=== PATIENT | female | born 1950 | race Caucasian/White ===

== ENCOUNTER 2016-07-04 08:58 | Emergency (ER) | payer MEDICARE ==
--- NOTE | 2016-07-04 09:29 | ED ---
Fall HPI - General Chief Complaint: Fall Stated Complaint: Fell/hip pain Time Seen by Provider: 07/04/16 09:17 Source: patient, RN notes reviewed Mode of arrival: ambulatory - History of Present Illness Initial Comments: Patient is a 66-year-old female presents to the emergency room for evaluation of fall injury. Patient states Sunday night she was walking out of a restaurant and tripped over a step and fell forward landing on both of her hands and knees. Patient states she began having left hand pain that has subsided since. Patient states over the past day she began having increasing right-sided low back pain. Patient states she's been taking leftover Tylenol 3 with little relief of symptoms. Patient denies numbness or tingling going down extremities. Patient denies saddle anesthesia. Patient denies urinary or fecal incontinence. Patient states the pain is worse when she sitting down. Patient states the pain is sharp and constant. Patient denies any other injuries during incident. Patient states she took 2 Tylenol #3 prior to arrival. - Related Data Home Medications Medication Instructions Recorded Confirmed Acetaminophen-Codeine 300-30mg 2 tab PO Q8H PRN 07/04/16 07/04/16 [Tylenol #3] Furosemide [Lasix] 20 mg PO DAILY 07/04/16 07/04/16 Lactulose 20 gm PO TID 07/04/16 07/04/16 Ondansetron [Zofran] 4 mg PO Q8HR PRN 07/04/16 07/04/16 Pramipexole Di-HCl [Mirapex] 0.25 mg PO HS 07/04/16 07/04/16 Propranolol [Inderal] 20 mg PO BID 07/04/16 07/04/16 Rifaximin [Xifaxan] 550 mg PO BID 07/04/16 07/04/16 Spironolactone 50 mg PO DAILY 07/04/16 07/04/16 Allergies Allergy/AdvReac Type Severity Reaction Status Date / Time No Known Allergies Allergy Verified 07/04/16 09:44 Review of Systems ROS Statement: Those systems with pertinent positive or pertinent negative responses have been documented in the HPI. ROS Other: All systems not noted in ROS Statement are negative. Past Medical History Additional Past Medical History / Comment(s): cirrhosis of liver History of Any Multi-Drug Resistant Organisms: None Reported Past Surgical History: Bowel Resection, Hernia Repair, Hysterectomy Additional Past Surgical History / Comment(s): x4 laproscopy's Past Psychological History: No Psychological Hx Reported Smoking Status: Never smoker Past Alcohol Use History: None Reported Past Drug Use History: None Reported General Exam - General Exam Comments Initial Comments: Sitting in exam chair, no acute distress. Limitations: no limitations General appearance: alert, in no apparent distress Head exam: Present: atraumatic, normocephalic, normal inspection Eye exam: Present: normal appearance ENT exam: Present: normal exam Neck exam: Present: normal inspection Respiratory exam: Present: normal lung sounds bilaterally. Absent: respiratory distress Cardiovascular Exam: Present: regular rate, normal rhythm, normal heart sounds Left Forearm Wrist exam: Present: tenderness over anatomical snuff box Hand Wrist exam: Present: normal inspection, full ROM, tenderness (Tenderness on palpating over the thenar eminence) Neuro motor exam: Present: wrist extension intact, thumb opposition intact, thumb IP flexion intact, thumb adduction intact, fingers 2-5 abduction intact Vascular: Present: normal capillary refill (Capillary refill less than 2 seconds ), radial pulse (2+), ulnar pulse (2+) Back exam: Present: normal inspection, tenderness (Tenderness on palpating the right sacroiliac area.) Neurological exam: Present: alert, oriented X3, CN II-XII intact Psychiatric exam: Present: normal affect, normal mood Skin exam: Present: warm, dry, intact, normal color. Absent: rash Course Vital Signs 07/04/16 09:08 Temperature 98.2 F Pulse Rate 61 Respiratory 18 Rate Blood Pressure 122/55 O2 Sat by Pulse 98 Oximetry Procedures - Orthopedic Splinting/Casting Injury #1 Side: left Upper Extremity Injury Location: hand Upper Extremity Immobilizer: thumb spica (Short arm OCL thumb spica splint placed. Neurovascular function is intact.) Medical Decision Making - Medical Decision Making Patient is a 66-year-old female presents to the emergency room for evaluation of fall injury. X-rays show no acute findings. Patient does have tenderness over the anatomical snuffbox on palpation. Suspected possible scaphoid fracture. Patient placed in a thumb spica splint and advised to follow-up with legal contracts specialist. Patient states she understands everything that was discussed with her. Return parameters discussed. Case discussed with Dr. Moraes. Disposition Clinical Impression: Fall, Injury of left hand, Suspected fracture of bone, Low back strain Disposition: HOME SELF-CARE Condition: Good Instructions: Fall Prevention for Older Adults (ED), Scaphoid Fracture (ED), Suspected Fracture (ED), Low Back Strain (ED) Additional Instructions: Ice on and off for 10-15 minutes for the next 24-48 hours. Do not get splint wet. Do not remove splint until follow-up with legal contracts specialist. Please follow-up with legal contracts specialist in 24-48 hours for further evaluation. Take Tylenol or Motrin as needed for pain. If new symptoms develop or symptoms worsen, please return to the ER. Referrals: Deidre Cartagena MD [Primary Care Provider] - 1-2 days Magdaleno Harper DO [Doctor of Osteopathic Medicine] - 1-2 days Time of Disposition: 10:50
--- NOTE | 2016-07-04 10:33 | XR ---
EXAMINATION TYPE: XR hand complete LT DATE OF EXAM ORDERED: 07/04/2016 10:24 AM HISTORY: Pain. COMPARISON: None. FINDINGS: There is evidence of a healed fracture of the distal fifth metacarpal. No acute fracture o r dislocation is seen. There is a tiny, well-defined ossific density lying adjacent to the third meta carpal head. This is thought to be a sesamoid bone as no donor site is visualized. IMPRESSION: 1. NO ACUTE OSSEOUS LESION. 2. EVIDENCE OF OLD TRAUMA.
--- NOTE | 2016-07-04 10:34 | XR ---
EXAMINATION TYPE: XR sacrum coccyx DATE OF EXAM ORDERED: 07/04/2016 10:24 AM HISTORY: Pain. COMPARISON: None. FINDINGS: There has been previous bowel surgery in the right lower quadrant. There are phleboliths w ithin the pelvis. No fracture or dislocation is seen. IMPRESSION: NO ACUTE OSSEOUS LESION.
--- NOTE | 2016-07-04 10:35 | XR ---
EXAM TYPE: LUMBAR SPINE X RAY SERIES COMPARISON: NONE HISTORY: Pain TECHNIQUE: 4 views are submitted. FINDINGS: Alignment is anatomic. The pedicles are intact. The transverse processes are intact. There is no s pondylolysis or spondylolisthesis. Multilevel moderate to severe degenerative disc disease with face t arthropathy. Hypertrophic changes noted anteriorly. No compression deformities. Postsurgical change s are seen in the adjacent soft tissues. IMPRESSION: 1. Multilevel degenerative disc disease.
[2016-07-04 11:04] VITALS: BP 156/67; PULSE 60; RESP 16; TEMP 97.4
== END 2016-07-04 11:08 | disposition home or self-care (01) ==
LOC: EC 08:58
DX: S39.012A Strain of muscle, fascia and tendon of lower back, initial encounter (principal); S69.92XA Unspecified injury of left wrist, hand and finger(s), initial encounter; K74.60 Unspecified cirrhosis of liver; Z79.899 Other long term (current) drug therapy; W01.0XXA Fall on same level from slipping, tripping and stumbling without subsequent striking against object, initial encounter; Y93.01 Activity, walking, marching and hiking; Y92.511 Restaurant or cafe as the place of occurrence of the external cause
CPT/HCPCS: 29125; 72110; 72220; 99284

== ENCOUNTER 2017-07-23 06:58 | Emergency (ER) | payer MEDICARE, BC ==
[2017-07-23 07:10] VITALS: BP 141/64; PULSE 67; RESP 18; TEMP 97.7
--- NOTE | 2017-07-23 07:26 | ED ---
General Adult HPI - General Chief complaint: Extremity Injury, Lower Stated complaint: fall,hip pain Time Seen by Provider: 07/23/17 07:12 Source: patient, RN notes reviewed, old records reviewed Mode of arrival: ambulatory Limitations: no limitations - History of Present Illness Initial comments: 67-year-old female presents with chief complaint of right hip pain. Patient's pain has been present for approximately one week. She did fall landing on this hip. Patient has had total hip replacement on the right approximately 8 months ago. This was performed at outside hospital. Denies any other injury. No sensory changes in the lower leg. No changes in her bowel or bladder habits. She has been ambulating with some pain. She's been taking Motrin with minimal relief. - Related Data Home Medications Medication Instructions Recorded Confirmed Acetaminophen-Codeine 300-30mg 2 tab PO Q8H PRN 07/04/16 07/04/16 [Tylenol #3] Furosemide [Lasix] 20 mg PO DAILY 07/04/16 07/04/16 Lactulose 20 gm PO TID 07/04/16 07/04/16 Ondansetron [Zofran] 4 mg PO Q8HR PRN 07/04/16 07/04/16 Pramipexole Di-HCl [Mirapex] 0.25 mg PO HS 07/04/16 07/04/16 Propranolol [Inderal] 20 mg PO BID 07/04/16 07/04/16 Rifaximin [Xifaxan] 550 mg PO BID 07/04/16 07/04/16 Spironolactone 50 mg PO DAILY 07/04/16 07/04/16 Previous Rx's Medication Instructions Recorded traMADol HCL [Ultram] 50 mg PO Q8HR PRN #24 tab 07/23/17 Allergies Allergy/AdvReac Type Severity Reaction Status Date / Time No Known Allergies Allergy Verified 07/23/17 07:10 Review of Systems ROS Statement: Those systems with pertinent positive or pertinent negative responses have been documented in the HPI. ROS Other: All systems not noted in ROS Statement are negative. Past Medical History Additional Past Medical History / Comment(s): cirrhosis of liver History of Any Multi-Drug Resistant Organisms: None Reported Past Surgical History: Bowel Resection, Hernia Repair, Hysterectomy, Joint Replacement, Orthopedic Surgery Additional Past Surgical History / Comment(s): x4 laproscopy's Past Psychological History: No Psychological Hx Reported Smoking Status: Never smoker Past Alcohol Use History: None Reported Past Drug Use History: None Reported General Exam Limitations: no limitations General appearance: alert, in no apparent distress Head exam: Present: atraumatic, normocephalic Eye exam: Present: normal appearance, PERRL, EOMI ENT exam: Present: normal exam, normal oropharynx Neck exam: Present: normal inspection. Absent: tenderness, meningismus Respiratory exam: Present: normal lung sounds bilaterally. Absent: respiratory distress, wheezes Cardiovascular Exam: Present: regular rate, normal rhythm GI/Abdominal exam: Present: soft. Absent: distended, tenderness Extremities exam: Present: normal inspection, normal capillary refill, other ( Distal pulses intact, range of motion at the hip does elicit small amount of pain, patient has normal internal and external rotation of the hip.). Absent: calf tenderness Neurological exam: Present: alert, oriented X3, CN II-XII intact. Absent: motor sensory deficit Psychiatric exam: Present: normal affect, normal mood Skin exam: Present: warm, dry, intact. Absent: cyanosis, diaphoretic Course Vital Signs 07/23/17 07:08 Temperature 97.7 F Pulse Rate 67 Respiratory 18 Rate Blood Pressure 141/64 O2 Sat by Pulse 98 Oximetry Medical Decision Making - Medical Decision Making 67-year-old female with right hip pain status post fall approximately one week ago. Patient has been ambulatory with some pain. Exam unremarkable. X-rays obtained, this was uncomplicated right hip total arthroplasty, no fracture identified. Patient's orthopedic surgeon is out of [facility] in [facility]. She is provided with a disc of the x-rays obtained today. She will be given tramadol for pain. Please follow up with orthopedic surgery. Disposition Clinical Impression: Contusion, hip Disposition: HOME SELF-CARE Condition: Good Instructions: Hip Pain (ED) Prescriptions: traMADol HCL [Ultram] 50 mg PO Q8HR PRN #24 tab PRN Reason: Pain Referrals: Deidre Cartagena MD [Primary Care Provider] - 1-2 days Yuri Lin MD [REFERRING] - 1-2 days Time of Disposition: 08:03
--- NOTE | 2017-07-23 07:37 | XR ---
EXAMINATION TYPE: XR Hip Complete RT DATE OF EXAM: 07/23/2017 COMPARISON: NONE HISTORY: 67-year-old female with pain, prior hip surgery in November TECHNIQUE: AP and frog-leg lateral views FINDINGS: Images show right total arthroplasty. Both acetabular cup and femoral short stemmed components of the prosthesis appear well seated without periprosthetic fracture identified. Alignment grossly anatomic . Some degenerative changes at the right SI joint. IMPRESSION: Uncomplicated right hip total arthroplasty.
== END 2017-07-23 08:12 | disposition home or self-care (01) ==
LOC: EC 06:58
DX: S70.01XA Contusion of right hip, initial encounter (principal); K74.60 Unspecified cirrhosis of liver; Z96.641 Presence of right artificial hip joint; Z79.899 Other long term (current) drug therapy; W19.XXXA Unspecified fall, initial encounter
CPT/HCPCS: 73502; 99284

== ENCOUNTER → 2017-09-14 | Outpatient (CLI) | payer MEDICARE, BC ==
[2017-09-14 11:37] LABS: INR 1.3 (<1.2); Partial Thromboplastin Time 25.8 sec (22.0-30.0); Prothrombin Time 12.7 sec (9.0-12.0)
[2017-09-14 11:39] LABS: AST 54 U/L (14-36); Alkaline Phosphatase 171 U/L (38-126); Anion Gap 10 mmol/L; Blood Urea Nitrogen 12 mg/dL (7-17); Calcium 8.7 mg/dL (8.4-10.2); Carbon Dioxide 23 mmol/L (22-30); Chloride 109 mmol/L (98-107); Cholesterol 130 mg/dL (<200); Glucose 93 mg/dL (74-99); HDL Cholesterol 87 mg/dL (40-60); LDL Cholesterol,Calculated 27 mg/dL (0-99); Potassium 4.4 mmol/L (3.5-5.1); Sodium 142 mmol/L (137-145); Total Bilirubin 3.1 mg/dL (0.2-1.3); Total Protein 5.9 g/dL (6.3-8.2); Triglycerides 79 mg/dL (<150)
[2017-09-14 11:40] LABS: ALT 48 U/L (9-52); Anisocytosis Moderate; HCT 32.4 % (34.0-46.0); Hypochromasia Marked; MCH 29.4 pg (25.0-35.0); MCHC 30.8 g/dL (31.0-37.0); MCV 95.6 fL (80.0-100.0); Macrocytosis Slight; Mean Platelet Volume 10.7; Platelet Count 98 k/uL (150-450); RBC 3.39 m/uL (3.80-5.40); RDW 20.4 % (11.5-15.5); WBC 3.4 k/uL (3.8-10.6)
--- NOTE | 2017-09-14 11:44 | XR ---
EXAMINATION TYPE: XR chest 2V DATE OF EXAM: 09/14/2017 COMPARISON: NONE HISTORY: Shortness of breath and difficulty breathing for one month. TECHNIQUE: Frontal and lateral views of the chest are obtained. FINDINGS: There is no focal air space opacity, pleural effusion, or pneumothorax seen. Minimal left basilar subsegmental atelectasis is seen peripherally. The cardiac silhouette size is within normal limits. The osseous structures are intact. Mild acromioclavicular arthropathy is noted. IMPRESSION: Minimal left basilar subsegmental atelectasis otherwise no acute cardiopulmonary process .
[2017-09-14 11:50] LABS: Eosinophils # (M) 0.17 k/uL (0-0.7); Lymphocytes # (M) 1.09 k/uL (1.0-4.8); Monocytes # (M) 0.48 k/uL (0-1.0); Neutrophils # (M) 1.67 k/uL (1.3-7.7); Neutrophils % (M) 49 %; Nucleated Red Blood Cells 0 /100 WBC (0-0); Total Cells Counted 100
[2017-09-14 18:42] LABS: Hemoglobin A1C 5.5 % (4.0-6.0)
== END | disposition home or self-care (01) ==
LOC: RADXRMAIN 10:41
PROVIDERS: ATTEND Nurse Practitioner
DX: R06.00 Dyspnea, unspecified (principal); Z00.00 Encounter for general adult medical examination without abnormal findings; K74.60 Unspecified cirrhosis of liver; R53.1 Weakness; Z87.19 Personal history of other diseases of the digestive system
CPT/HCPCS: 71046; 80053; 80061; 82140; 83036; 83880; 84443; 85025; 85610; 85730

== ENCOUNTER → 2017-10-09 | Outpatient (CLI) | payer MEDICARE, BC ==
--- NOTE | 2017-10-09 09:26 | US ---
EXAMINATION TYPE: US duplex aorta DATE OF EXAM: 10/09/2017 COMPARISON: NONE CLINICAL HISTORY: Z82.49 Family history of ischemic heart disease.... Pt states family history of AAA (brother)/ No complaints at this time EXAM MEASUREMENTS: Abdominal Aorta: Proximal: 1.6 x 1.4 cm Mid: 1.5 x 1.7 cm Distal: 1.6 x 1.7 cm Bifurcation: ELOISE: 1.2 x 1.0 cm MELISSA: 1.2 x 1.1 cm No evidence of AAA IMPRESSION: No sonographic evidence of abdominal aortic aneurysm in the visualized portions of the ao rta.
== END | disposition home or self-care (01) ==
LOC: RADUSWWP 08:54
PROVIDERS: ATTEND Family Medicine
DX: Z13.6 Encounter for screening for cardiovascular disorders (principal); Z82.49 Family history of ischemic heart disease and other diseases of the circulatory system
CPT/HCPCS: 93979

== ENCOUNTER → 2017-11-01 | Outpatient (CLI) | payer MEDICARE, BC ==
--- NOTE | 2017-11-09 07:55 | MM ---
Reason for exam: screening (asymptomatic). Last mammogram was performed 1 year and 8 months ago. History: Patient is postmenopausal and had first child at age 37. Physical Findings: A clinical breast exam by your physician is recommended on an annual basis and results should be correlated with mammographic findings. MG 3D Screening Mammo W/Cad Bilateral CC and MLO view(s) were taken. Prior study comparison: February 24, 2016, mammogram, performed at [facility]. February 05, 2014, mammogram, performed at [facility]. The breast tissue is heterogeneously dense. This may lower the sensitivity of mammography. No significant changes when compared with prior studies. ASSESSMENT: Benign, BI-RAD 2 RECOMMENDATION: Routine screening mammogram of both breasts in 1 year.
== END | disposition home or self-care (01) ==
LOC: RADMAMWWP 13:45
PROVIDERS: ATTEND Family Medicine
DX: Z12.31 Encounter for screening mammogram for malignant neoplasm of breast (principal)
CPT/HCPCS: 77063; 77067

== ENCOUNTER → 2017-11-01 | Outpatient (CLI) | payer MEDICARE, BC ==
--- NOTE | 2017-11-01 14:25 | MR ---
EXAMINATION TYPE: MR angio head wo con DATE OF EXAM: 11/01/2017 COMPARISON: NONE HISTORY: Family history of ischemic heart disease. TECHNIQUE: Time of flight images focusing on the [place] of [place] were performed without contrast. FINDINGS: There is no evidence of intracranial aneurysm, focal stenosis, dissection, or vascular occlusion. No evidence of vascular malformation is identified. The [place] of [place] appears intact although the pos terior communicating arteries are diminutive in size. The vertebral arteries are codominant. A scant amount of mucosal thickening is incidentally noted within the left ethmoid sinuses. There is also incidental note of a high riding left jugular bulb. IMPRESSION: No evidence of intracranial aneurysm, dissection, or vascular occlusion. No vascular malf ormation is seen.
== END | disposition home or self-care (01) ==
LOC: RADMRIMAIN 13:03
PROVIDERS: ATTEND Family Medicine
DX: Z13.6 Encounter for screening for cardiovascular disorders (principal); Z82.49 Family history of ischemic heart disease and other diseases of the circulatory system
CPT/HCPCS: 70544

== ENCOUNTER → 2018-01-22 | Outpatient (CLI) | payer MEDICARE, BC ==
[2018-01-22 18:00] LABS: ALT 41 U/L (9-52); AST 55 U/L (14-36); Alkaline Phosphatase 179 U/L (38-126); Anion Gap 3 mmol/L; Blood Urea Nitrogen 8 mg/dL (7-17); Calcium 9.1 mg/dL (8.4-10.2); Carbon Dioxide 27 mmol/L (22-30); Chloride 111 mmol/L (98-107); Glucose 112 mg/dL (74-99); Potassium 4.2 mmol/L (3.5-5.1); Sodium 141 mmol/L (137-145); Total Bilirubin 2.5 mg/dL (0.2-1.3); Total Protein 6.3 g/dL (6.3-8.2)
[2018-01-22 18:01] LABS: INR 1.4 (<1.2); Partial Thromboplastin Time 26.3 sec (22.0-30.0); Prothrombin Time 13.4 sec (9.0-12.0)
[2018-01-22 18:45] LABS: Anisocytosis Moderate; HCT 30.6 % (34.0-46.0); HGB 9.2 gm/dL (11.4-16.0); Hypochromasia Marked; MCH 28.4 pg (25.0-35.0); MCV 94.5 fL (80.0-100.0); Macrocytosis Slight; Mean Platelet Volume 11.2; RBC 3.24 m/uL (3.80-5.40); RDW 20.2 % (11.5-15.5); WBC 3.8 k/uL (3.8-10.6)
[2018-01-22 18:50] LABS: Platelet Count 73 k/uL (150-450)
[2018-01-22 19:55] LABS: Anisocytosis (M) Present; Band Neutrophils % 6 %; Eosinophils # (M) 0.15 k/uL (0-0.7); Monocytes # (M) 0.46 k/uL (0-1.0); Neutrophils % (M) 49 %; Nucleated Red Blood Cells 0 /100 WBC (0-0); Poikilocytosis (M) Present; Polychromasia Present; Total Cells Counted 100
[2018-01-22 19:56] LABS: Stomatocytes Present; Target Cells Present; Tear Drop Cells Present
== END | disposition home or self-care (01) ==
LOC: LABWHC1 16:53
PROVIDERS: ATTEND Internal Medicine
DX: K75.81 Nonalcoholic steatohepatitis (NASH) (principal); K74.60 Unspecified cirrhosis of liver; Z76.82 Awaiting organ transplant status
CPT/HCPCS: 36415; 80053; 82105; 85025; 85610; 85730

== ENCOUNTER → 2018-05-21 | Outpatient (CLI) | payer MEDICARE, BC ==
--- NOTE | 2018-05-21 13:44 | XR ---
EXAMINATION TYPE: XR chest 2V DATE OF EXAM: 05/21/2018 COMPARISON: 09/14/2017 HISTORY: 68 year-old female shortness of breath TECHNIQUE: Frontal and lateral views FINDINGS: Heart upper limits of normal in size. Biapical pleural parenchymal scarring. Mild interstitial promin ence. No consolidation or pleural effusion seen. IMPRESSION: Chronic-appearing changes. Heart upper limits of normal in size. Biapical pleural-parenchymal scarrin g. No acute process seen.
--- NOTE | 2018-05-21 17:31 | ECHOF ---
Referral Reason:R06.02, R91.8 MEASUREMENTS -------- HEIGHT: 167.6 cm WEIGHT: 90.7 kg BP: RVIDd: 3.3 cm (< 3.3) IVSd: 1.3 cm (0.6 - 1.1) LVIDd: 5.0 cm (3.9 - 5.3) LVPWd: 1.2 cm (0.6 - 1.1) IVSs: 1.3 cm LVIDs: 3.6 cm LVPWs: 1.3 cm LAESV Index (A-L): 23.59 ml/m Ao Diam: 2.6 cm (2.0 - 3.7) AV Cusp: 1.7 cm (1.5 - 2.6) LA Diam: 3.5 cm (2.7 - 3.8) MV EXCURSION: 19.436 mm (> 18.000) MV EF SLOPE: 98 mm/s (70 - 150) EPSS: 0.4 cm MV E Lex: 1.26 m/s MV DecT: 334 ms MV A Lex: 1.02 m/s MV E/A Ratio: 1.23 RAP: 5.00 mmHg RVSP: 39.83 mmHg FINDINGS -------- Resting bradycardia (HR<60bpm). This was a technically adequate study. The left ventricular size is normal. There is mild concentric left ventricular hypertrophy. Overa ll left ventricular systolic function is normal with, an EF between 55 - 60 %. The right ventricle is normal in size and function. Normal LA size by volume 22+/-6 ml/m2. The right atrium was not well visualized. Aortic valve is trileaflet and is mildly thickened. There is no evidence of aortic regurgitation. There is no evidence of aortic stenosis. Local thickening noted on the non-coronary cusp. Mild mitral annular calcification present. There is trace to mild mitral regurgitation. Trace tricuspid regurgitation present. Right ventricular systolic pressure is normal at < 35 mmHg. There is no evidence of pulmonary hypertension. The pulmonic valve was not well visualized. The aortic root size is normal. Normal inferior vena cava with normal inspiratory collapse consistent with estimated right atrial pre ssure of 5 mmHg. There is no pericardial effusion. CONCLUSIONS -------- 1. Resting bradycardia (HR<60bpm). 2. This was a technically adequate study. 3. The left ventricular size is normal. 4. There is mild concentric left ventricular hypertrophy. 5. Overall left ventricular systolic function is normal with, an EF between 55 - 60 %. 6. Normal LA size by volume 22+/-6 ml/m2. 7. The right atrium was not well visualized. 8. Aortic valve is trileaflet and is mildly thickened. 9. Local thickening noted on the non-coronary cusp. 10. Mild mitral annular calcification present. 11. There is trace to mild mitral regurgitation. 12. Trace tricuspid regurgitation present. 13. Right ventricular systolic pressure is normal at < 35 mmHg. 14. There is no evidence of pulmonary hypertension. 15. The pulmonic valve was not well visualized. 16. The aortic root size is normal. 17. There is no pericardial effusion. MACHINE FOLDER: Vaughn Su RDCS
== END | disposition home or self-care (01) ==
LOC: RADECHMAIN 12:09
PROVIDERS: ATTEND Internal Medicine
DX: I34.0 Nonrheumatic mitral (valve) insufficiency (principal); R00.1 Bradycardia, unspecified; I51.7 Cardiomegaly; I35.8 Other nonrheumatic aortic valve disorders; J98.4 Other disorders of lung
CPT/HCPCS: 71046; 93306

== ENCOUNTER → 2018-05-21 | Outpatient (CLI) | payer MEDICARE, BC | END | disposition home or self-care (01) | LOC: LABWHC1 11:17 | PROVIDERS: ATTEND Internal Medicine | DX: Z53.9 Procedure and treatment not carried out, unspecified reason (principal) ==

== ENCOUNTER 2018-08-27 02:31 | Emergency (ER) | payer MEDICARE, BC ==
--- NOTE | 2018-08-27 02:47 | ED ---
SOB HPI - General Chief Complaint: Shortness of Breath Stated Complaint: ARTEM Time Seen by Provider: 08/27/18 02:41 Source: patient Mode of arrival: ambulatory Limitations: no limitations - History of Present Illness Initial Comments: Patient is a 68-year-old female with past medical history significant for liver disease for which she is currently being followed by [facility] for possible transplant. Patient presents the emergency Department today with complaint of the vertigo and shortness of breath. Patient reports she's had a nonproductive cough and wheezing throughout the night tonight. She reports that while driving to the hospital she became nauseated had to mold puller and had one episode of nonbloody nonbilious emesis. She denies any chest pain or palpitations. She denies any abdominal pain or diarrhea. She denies any known sick contacts. - Related Data Home Medications Medication Instructions Recorded Confirmed Furosemide [Lasix] 20 mg PO DAILY 07/04/16 08/27/18 Lactulose 20 gm PO TID 07/04/16 08/27/18 Ondansetron [Zofran] 4 mg PO Q8HR PRN 07/04/16 08/27/18 Propranolol [Inderal] 20 mg PO BID 07/04/16 08/27/18 Rifaximin [Xifaxan] 550 mg PO BID 07/04/16 08/27/18 Oxybutynin Chloride 5 mg PO DAILY 08/27/18 08/27/18 Allergies Allergy/AdvReac Type Severity Reaction Status Date / Time No Known Allergies Allergy Verified 08/27/18 15:23 Review of Systems ROS Statement: Those systems with pertinent positive or pertinent negative responses have been documented in the HPI. ROS Other: All systems not noted in ROS Statement are negative. Past Medical History Additional Past Medical History / Comment(s): cirrhosis of liver History of Any Multi-Drug Resistant Organisms: None Reported Past Surgical History: Bowel Resection, Hernia Repair, Hysterectomy, Joint Replacement, Orthopedic Surgery Additional Past Surgical History / Comment(s): x4 laproscopy's Past Psychological History: No Psychological Hx Reported Smoking Status: Never smoker Past Alcohol Use History: None Reported Past Drug Use History: None Reported General Exam - General Exam Comments Initial Comments: Physical Exam GENERAL: Patient is well-developed and well-nourished. Febrile HENT: Normocephalic, Atraumatic. EYES: PERRL, EOMI PULMONARY: Tachypneic, wheezing in all lung poole CARDIOVASCULAR: There is a regular rate and rhythm without any murmurs gallops or rubs. ABDOMEN: Soft and nontender with normal bowel sounds. SKIN: Skin is warm, clammy : Deferred NEUROLOGIC: Patient is alert and oriented x3. Moving all extremities spontaneously MUSCULOSKELETAL: Normal extremities with adequate strength and full range of motion. No lower extremity swelling or edema. No calf tenderness. PSYCHIATRIC: Normal psychiatric evaluation Limitations: no limitations Course Vital Signs 08/27/18 08/27/18 08/27/18 02:35 02:46 02:50 Temperature 99.5 F Pulse Rate 90 87 Respiratory 24 20 Rate Blood Pressure 138/61 163/50 O2 Sat by Pulse 98 97 98 Oximetry 08/27/18 08/27/18 08/27/18 02:57 03:00 03:10 Temperature 102.2 F H Pulse Rate 87 Respiratory 24 20 Rate Blood Pressure 157/56 150/62 O2 Sat by Pulse Oximetry 08/27/18 08/27/18 08/27/18 03:20 03:30 03:40 Temperature Pulse Rate 87 88 99 Respiratory 13 20 22 Rate Blood Pressure 153/61 153/61 148/56 O2 Sat by Pulse 98 98 Oximetry 08/27/18 08/27/18 08/27/18 03:50 04:00 04:10 Temperature Pulse Rate 90 90 88 Respiratory 26 H 13 24 Rate Blood Pressure 128/50 128/50 139/45 O2 Sat by Pulse 97 98 98 Oximetry 08/27/18 08/27/18 08/27/18 04:20 04:30 04:50 Temperature Pulse Rate 89 94 Respiratory 25 H 24 Rate Blood Pressure 124/48 124/48 140/57 O2 Sat by Pulse 97 98 Oximetry 08/27/18 08/27/18 08/27/18 05:00 05:03 05:14 Temperature 99.7 F H Pulse Rate 95 93 89 Respiratory 20 Rate Blood Pressure 140/57 O2 Sat by Pulse 98 Oximetry Medical Decision Making - Medical Decision Making The patient was seen and evaluated, history is obtained from the patient History and physical exam are concerning for a viral upper respiratory infection, labs were obtained, patient was given a breathing treatment as well as antipyretics and fluids Labs of multiple abnormalities however appear to be at baseline for the patient with chronic anemia chronic liver disease D-dimer was elevated and CTA was obtained which revealed no acute pulmonary embolism however there is a atypical mass in the left lung, patient reports that she has a fever from living in [place] and that she was aware of this mass in her lung. Patient was reevaluated after fluids antipyretic she is now afebrile, she is not tachycardic oxygen saturation saturations are in the high 90s patient reports she is feeling much better she's hungry she would like to eat and be discharged home. Patient tolerated by mouth intake she remained afebrile and was discharged home in stable condition. All questions pertaining care were answered return parameters were discussed the patient was discharged home. - Lab Data Result diagrams: 08/27/18 03:04 08/27/18 03:04 Lab Results 08/27/18 08/27/18 08/27/18 Range/Units 03:04 03:04 03:04 WBC 12.9 H (3.8-10.6) k/uL RBC 2.92 L (3.80-5.40) m/uL Hgb 8.4 L (11.4-16.0) gm/dL Hct 27.8 L (34.0-46.0) % MCV 95.3 (80.0-100.0) fL MCH 28.9 (25.0-35.0) pg MCHC 30.3 L (31.0-37.0) g/dL RDW 21.1 H (11.5-15.5) % Plt Count 70 L (150-450) k/uL Neutrophils % Not Reportable Neutrophils % (Manual) 36 % Band Neutrophils % 48 % Lymphocytes % Not Reportable Lymphocytes % (Manual) 12 % Monocytes % Not Reportable Monocytes % (Manual) 3 % Eosinophils % Not Reportable Eosinophils % (Manual) 1 % Basophils % Not Reportable Metamyelocytes % 1 % Neutrophils # Not Reportable Neutrophils # (Manual) 10.80 H (1.3-7.7) k/uL Lymphocytes # Not Reportable Lymphocytes # (Manual) 1.55 (1.0-4.8) k/uL Monocytes # Not Reportable Monocytes # (Manual) 0.39 (0-1.0) k/uL Eosinophils # Not Reportable Eosinophils # (Manual) 0.13 (0-0.7) k/uL Basophils # Not Reportable Metamyelocytes # (Man) 0.13 H (0) k/uL Nucleated RBCs 0 (0-0) /100 WBC Manual Slide Review Performed Polychromasia Present Hypochromasia Marked Poikilocytosis Slight Anisocytosis Moderate Macrocytosis Slight Target Cells Present PT 13.3 H (9.0-12.0) sec INR 1.3 H (<1.2) APTT 24.9 (22.0-30.0) sec D-Dimer 1.49 H (<0.60) mg/L FEU Sodium 140 (137-145) mmol/L Potassium 4.2 (3.5-5.1) mmol/L Chloride 111 H (98-107) mmol/L Carbon Dioxide 25 (22-30) mmol/L Anion Gap 4 mmol/L BUN 13 (7-17) mg/dL Creatinine 0.70 (0.52-1.04) mg/dL Est GFR (CKD-EPI)AfAm >90 (>60 ml/min/1.73 sqM) Est GFR (CKD-EPI)NonAf >90 (>60 ml/min/1.73 sqM) Glucose 72 L (74-99) mg/dL Plasma Lactic Acid Sin (0.7-2.0) mmol/L Calcium 8.8 (8.4-10.2) mg/dL Magnesium 1.4 L (1.6-2.3) mg/dL Total Bilirubin 2.5 H (0.2-1.3) mg/dL AST 66 H (14-36) U/L ALT 35 (9-52) U/L Alkaline Phosphatase 294 H (38-126) U/L Troponin I (0.000-0.034) ng/mL NT-Pro-B Natriuret Pep pg/mL Total Protein 6.0 L (6.3-8.2) g/dL Albumin 2.8 L (3.5-5.0) g/dL Urine Color Urine Appearance (Clear) Urine pH (5.0-8.0) Ur Specific [place] (1.001-1.035) Urine Protein (Negative) Urine Glucose (UA) (Negative) Urine Ketones (Negative) Urine Blood (Negative) Urine Nitrite (Negative) Urine Bilirubin (Negative) Urine Urobilinogen (<2.0) mg/dL Ur Leukocyte Esterase (Negative) Urine RBC (0-5) /hpf Urine WBC (0-5) /hpf Urine WBC Clumps (None) /hpf Ur Squamous Epith Cells (0-4) /hpf Urine Bacteria (None) /hpf Hyaline Casts (0-2) /lpf Urine Mucus (None) /hpf Influenza Type A RNA (Not Detectd) Influenza Type B (PCR) (Not Detectd) 08/27/18 08/27/18 08/27/18 Range/Units 03:04 03:04 03:04 WBC (3.8-10.6) k/uL RBC (3.80-5.40) m/uL Hgb (11.4-16.0) gm/dL Hct (34.0-46.0) % MCV (80.0-100.0) fL MCH (25.0-35.0) pg MCHC (31.0-37.0) g/dL RDW (11.5-15.5) % Plt Count (150-450) k/uL Neutrophils % Neutrophils % (Manual) % Band Neutrophils % % Lymphocytes % Lymphocytes % (Manual) % Monocytes % Monocytes % (Manual) % Eosinophils % Eosinophils % (Manual) % Basophils % Metamyelocytes % % Neutrophils # Neutrophils # (Manual) (1.3-7.7) k/uL Lymphocytes # Lymphocytes # (Manual) (1.0-4.8) k/uL Monocytes # Monocytes # (Manual) (0-1.0) k/uL Eosinophils # Eosinophils # (Manual) (0-0.7) k/uL Basophils # Metamyelocytes # (Man) (0) k/uL Nucleated RBCs (0-0) /100 WBC Manual Slide Review Polychromasia Hypochromasia Poikilocytosis Anisocytosis Macrocytosis Target Cells PT (9.0-12.0) sec INR (<1.2) APTT (22.0-30.0) sec D-Dimer (<0.60) mg/L FEU Sodium (137-145) mmol/L Potassium (3.5-5.1) mmol/L Chloride (98-107) mmol/L Carbon Dioxide (22-30) mmol/L Anion Gap mmol/L BUN (7-17) mg/dL Creatinine (0.52-1.04) mg/dL Est GFR (CKD-EPI)AfAm (>60 ml/min/1.73 sqM) Est GFR (CKD-EPI)NonAf (>60 ml/min/1.73 sqM) Glucose (74-99) mg/dL Plasma Lactic Acid Sin (0.7-2.0) mmol/L Calcium (8.4-10.2) mg/dL Magnesium (1.6-2.3) mg/dL Total Bilirubin (0.2-1.3) mg/dL AST (14-36) U/L ALT (9-52) U/L Alkaline Phosphatase (38-126) U/L Troponin I <0.012 (0.000-0.034) ng/mL NT-Pro-B Natriuret Pep 307 pg/mL Total Protein (6.3-8.2) g/dL Albumin (3.5-5.0) g/dL Urine Color Urine Appearance (Clear) Urine pH (5.0-8.0) Ur Specific [place] (1.001-1.035) Urine Protein (Negative) Urine Glucose (UA) (Negative) Urine Ketones (Negative) Urine Blood (Negative) Urine Nitrite (Negative) Urine Bilirubin (Negative) Urine Urobilinogen (<2.0) mg/dL Ur Leukocyte Esterase (Negative) Urine RBC (0-5) /hpf Urine WBC (0-5) /hpf Urine WBC Clumps (None) /hpf Ur Squamous Epith Cells (0-4) /hpf Urine Bacteria (None) /hpf Hyaline Casts (0-2) /lpf Urine Mucus (None) /hpf Influenza Type A RNA Not Detected (Not Detectd) Influenza Type B (PCR) Not Detected (Not Detectd) 08/27/18 08/27/18 Range/Units 03:04 03:42 WBC (3.8-10.6) k/uL RBC (3.80-5.40) m/uL Hgb (11.4-16.0) gm/dL Hct (34.0-46.0) % MCV (80.0-100.0) fL MCH (25.0-35.0) pg MCHC (31.0-37.0) g/dL RDW (11.5-15.5) % Plt Count (150-450) k/uL Neutrophils % Neutrophils % (Manual) % Band Neutrophils % % Lymphocytes % Lymphocytes % (Manual) % Monocytes % Monocytes % (Manual) % Eosinophils % Eosinophils % (Manual) % Basophils % Metamyelocytes % % Neutrophils # Neutrophils # (Manual) (1.3-7.7) k/uL Lymphocytes # Lymphocytes # (Manual) (1.0-4.8) k/uL Monocytes # Monocytes # (Manual) (0-1.0) k/uL Eosinophils # Eosinophils # (Manual) (0-0.7) k/uL Basophils # Metamyelocytes # (Man) (0) k/uL Nucleated RBCs (0-0) /100 WBC Manual Slide Review Polychromasia Hypochromasia Poikilocytosis Anisocytosis Macrocytosis Target Cells PT (9.0-12.0) sec INR (<1.2) APTT (22.0-30.0) sec D-Dimer (<0.60) mg/L FEU Sodium (137-145) mmol/L Potassium (3.5-5.1) mmol/L Chloride (98-107) mmol/L Carbon Dioxide (22-30) mmol/L Anion Gap mmol/L BUN (7-17) mg/dL Creatinine (0.52-1.04) mg/dL Est GFR (CKD-EPI)AfAm (>60 ml/min/1.73 sqM) Est GFR (CKD-EPI)NonAf (>60 ml/min/1.73 sqM) Glucose (74-99) mg/dL Plasma Lactic Acid Sin 1.4 (0.7-2.0) mmol/L Calcium (8.4-10.2) mg/dL Magnesium (1.6-2.3) mg/dL Total Bilirubin (0.2-1.3) mg/dL AST (14-36) U/L ALT (9-52) U/L Alkaline Phosphatase (38-126) U/L Troponin I (0.000-0.034) ng/mL NT-Pro-B Natriuret Pep pg/mL Total Protein (6.3-8.2) g/dL Albumin (3.5-5.0) g/dL Urine Color Yellow Urine Appearance Cloudy H (Clear) Urine pH 5.5 (5.0-8.0) Ur Specific [place] 1.030 (1.001-1.035) Urine Protein 1+ H (Negative) Urine Glucose (UA) Negative (Negative) Urine Ketones Trace H (Negative) Urine Blood Moderate H (Negative) Urine Nitrite Negative (Negative) Urine Bilirubin Negative (Negative) Urine Urobilinogen <2.0 (<2.0) mg/dL Ur Leukocyte Esterase Moderate H (Negative) Urine RBC 8 H (0-5) /hpf Urine WBC 32 H (0-5) /hpf Urine WBC Clumps Rare H (None) /hpf Ur Squamous Epith Cells 14 H (0-4) /hpf Urine Bacteria Many H (None) /hpf Hyaline Casts 4 H (0-2) /lpf Urine Mucus Few H (None) /hpf Influenza Type A RNA (Not Detectd) Influenza Type B (PCR) (Not Detectd) - EKG Data -: EKG Interpreted by Me EKG Comments: EKG was ordered EKG obtained at 2:56 AM, rate is 88 rhythm is sinus is normal axis normal intervals, TX 158, QRS 88, QTC 4:30 there is no acute ST elevations or depressions no evidence of acute ischemia or infarction. Disposition Clinical Impression: URI (upper respiratory infection), Lung mass Disposition: HOME SELF-CARE Condition: Stable Instructions (If sedation given, give patient instructions): Acute Bronchitis (ED) Is patient prescribed a controlled substance at d/c from ED?: No Referrals: None,Stated [Primary Care Provider] - 1-2 days
[2018-08-27] MEDS ORDERED: ACETAMINOPHEN TAB 500 MG TAB PO STA (02:56)
[2018-08-27 03:23] LABS: Anisocytosis Moderate; HCT 27.8 % (34.0-46.0); HGB 8.4 gm/dL (11.4-16.0); Hypochromasia Marked; MCH 28.9 pg (25.0-35.0); MCHC 30.3 g/dL (31.0-37.0); MCV 95.3 fL (80.0-100.0); Macrocytosis Slight; Mean Platelet Volume 10.4; Poikilocytosis Slight; RBC 2.92 m/uL (3.80-5.40); RDW 21.1 % (11.5-15.5); WBC 12.9 k/uL (3.8-10.6)
[2018-08-27 03:35] LABS: ALT 35 U/L (9-52); AST 66 U/L (14-36); Albumin 2.8 g/dL (3.5-5.0); Alkaline Phosphatase 294 U/L (38-126); Anion Gap 4 mmol/L; Blood Urea Nitrogen 13 mg/dL (7-17); Calcium 8.8 mg/dL (8.4-10.2); Carbon Dioxide 25 mmol/L (22-30); Chloride 111 mmol/L (98-107); Glucose 72 mg/dL (74-99); Magnesium 1.4 mg/dL (1.6-2.3); Potassium 4.2 mmol/L (3.5-5.1); Sodium 140 mmol/L (137-145); Total Bilirubin 2.5 mg/dL (0.2-1.3)
[2018-08-27 03:53] LABS: Platelet Count 70 k/uL (150-450)
[2018-08-27 03:54] LABS: Polychromasia Present; Target Cells Present
--- NOTE | 2018-08-27 03:56 | XR ---
EXAM: XR Chest, 2 Views CLINICAL HISTORY: ITS.REASON XR Reason: difficulty breathing TECHNIQUE: Frontal and lateral views of the chest. COMPARISON: Chest x-ray dated 05/21/2018. FINDINGS: Lungs: Unremarkable. The lungs are clear. Pleural space: Unremarkable. No pneumothorax. Heart: Mild cardiomegaly. Mediastinum: Unremarkable. Bones/joints: Unremarkable. IMPRESSION: No acute findings.
[2018-08-27 03:59] LABS: INR 1.3 (<1.2); Partial Thromboplastin Time 24.9 sec (22.0-30.0); Prothrombin Time 13.3 sec (9.0-12.0)
[2018-08-27 04:06] LABS: Band Neutrophils % 48 %; Eosinophils # (M) 0.13 k/uL (0-0.7); Lymphocytes # (M) 1.55 k/uL (1.0-4.8); Metamyelocytes # (M) 0.13 k/uL (0); Metamyelocytes % 1 %; Monocytes # (M) 0.39 k/uL (0-1.0); Neutrophils % (M) 36 %; Nucleated Red Blood Cells 0 /100 WBC (0-0); Total Cells Counted 200
[2018-08-27 04:13] LABS: D-Dimer 1.49 mg/L FEU (<0.60)
[2018-08-27 04:27] LABS: Appearance,Urine Cloudy (Clear); Bacteria,Urine Many /hpf; Bilirubin,Urine Negative (Negative); Blood,Urine Moderate (Negative); Color,Urine Yellow; Glucose,Urine (UA) Negative (Negative); Hyaline Casts,Urine 4 /lpf (0-2); Ketones,Urine Trace (Negative); Leukocyte Esterase,Urine Moderate (Negative); Mucus,Urine Few /hpf; Nitrite,Urine Negative (Negative); PH, Urine 5.5 (5.0-8.0); Protein,Urine 1+ (Negative); RBC,Urine 8 /hpf (0-5); Squamous Epithelial Cell,Urine 14 /hpf (0-4); Urobilinogen,Urine <2.0 mg/dL (<2.0)
[2018-08-27] MEDS ORDERED: MAGNESIUM SULFATE-D5W PMX 1 GM in DEXTROSE/WATER 1 100ML.BAG IVPB ONE (04:40)
[2018-08-27] MEDS ORDERED: IPRATROPIUM-ALBUTEROL 3 ML NEB INHALATION STA (04:53)
[2018-08-27 05:05] VITALS: BP 140/57; RESP 20; TEMP 99.7
[2018-08-27 05:14] VITALS: PULSE 89
--- NOTE | 2018-08-27 06:02 | CT ---
EXAM: CT Angiography Chest With Intravenous Contrast CLINICAL HISTORY: ITS.REASON CT Reason: Pain TECHNIQUE: Axial computed tomographic angiography images of the chest with intravenous contrast using pulmonary embolism protocol. CTDI is 10.4 mGy and DLP is 441.8 mGy-cm. This CT exam was performed using one or more of the following dose reduction techniques: automated exposure control, adjustment of the mA and/or kV according to patient size, and/or use of iterative reconstruction technique. MIP reconstructed images were created and reviewed. COMPARISON: No relevant prior studies available. FINDINGS: Pulmonary arteries: Exam is limited by poor contrast bolus/timing as well as mild patient motion. There is no evidence of pulmonary embolism to the proximal segmental level. More distal evaluation is not possible. Aorta: No acute findings. No thoracic aortic aneurysm. Lungs: Large masslike focus of consolidation in the left lower lobe measuring up to 5.5 cm. Pleural space: Unremarkable. No significant effusion. No pneumothorax. Heart: Unremarkable. No cardiomegaly. No significant pericardial effusion. No evidence of RV dysfunction. Mediastinum: Small hiatal hernia. Bones/joints: No acute fracture. No dislocation. Soft tissues: Unremarkable. Lymph nodes: Unremarkable. No enlarged lymph nodes. Liver: Cirrhotic appearing liver. Gallbladder and bile ducts: Mildly distended gallbladder, nonspecific finding. IMPRESSION: 1. Exam is limited by poor contrast bolus/timing as well as mild patient motion. There is no evidence of pulmonary embolism to the proximal segmental level. More distal evaluation is not possible. 2. Large masslike focus of consolidation in the left lower lobe measuring up to 5.5 cm. For low-risk or high-risk patients consider a follow-up chest CT at 3 months. If unchanged consider an additional follow-up CT at 18-24 months. Alternatively (or additionally) PET/CT or tissue sampling could be performed.
== END 2018-08-27 06:56 | disposition home or self-care (01) ==
LOC: EC 02:31
DX: J06.9 Acute upper respiratory infection, unspecified (principal); R91.8 Other nonspecific abnormal finding of lung field; R79.89 Other specified abnormal findings of blood chemistry; Z79.899 Other long term (current) drug therapy
CPT/HCPCS: 36415; 94640; 93005; 85379; 83880; 80053; 83605; 83735; 84484; 85025; 85610; 85730; 81001; 87040; 87086; 87502; 71046; 71275; 99285; 96365; J3475; Q9967

== ENCOUNTER 2018-08-27 13:38 | Inpatient (IN) | payer MEDICARE, BC ==
[2018-08-27] MEDS ORDERED: IPRATROPIUM-ALBUTEROL 3 ML NEB INHALATION STA (15:03)
[2018-08-27] MEDS ORDERED: SODIUM CHLORIDE 0.9% 500 ML 500 ML IV STA (15:03)
[2018-08-27] MEDS ORDERED: SODIUM CHLORIDE 0.9% 1,000 ML IV STA (15:03)
[2018-08-27] MEDS ORDERED: methylPREDNISolone SOD SUCCI 125 MG/2 ML VIAL IV STA (15:10)
--- NOTE | 2018-08-27 15:13 | ED ---
General Adult HPI - General Chief complaint: Upper Respiratory Infection Stated complaint: SOB Time Seen by Provider: 08/27/18 15:03 Source: patient, family, RN notes reviewed Mode of arrival: ambulatory Limitations: no limitations - History of Present Illness Initial comments: Patient is a pleasant 68-year-old female presenting to the emergency Department with complaints of difficulty in breathing. Onset of symptoms was around 2 AM. Patient does have dry cough. Nonproductive. Patient did have a fever earlier. Patient did take Motrin an hour or 2 ago. No chest pain. Patient does have history of scarring in her lungs. Patient states she was in the emergency department this morning and had chest x-ray and computed tomography scan done. Patient states she took a nebulizer treatment this morning without much improvement. Patient states this was left over from an old diagnosis of bronchitis. Patient has been a nonsmoker of her life. No history of asthma or COPD. - Related Data Home Medications Medication Instructions Recorded Confirmed Furosemide [Lasix] 20 mg PO DAILY 07/04/16 08/27/18 Lactulose 20 gm PO TID 07/04/16 08/27/18 Ondansetron [Zofran] 4 mg PO Q8HR PRN 07/04/16 08/27/18 Propranolol [Inderal] 20 mg PO BID 07/04/16 08/27/18 Rifaximin [Xifaxan] 550 mg PO BID 07/04/16 08/27/18 Oxybutynin Chloride 5 mg PO DAILY 08/27/18 08/27/18 Allergies Allergy/AdvReac Type Severity Reaction Status Date / Time No Known Allergies Allergy Verified 08/27/18 15:23 Review of Systems ROS Statement: Those systems with pertinent positive or pertinent negative responses have been documented in the HPI. ROS Other: All systems not noted in ROS Statement are negative. Constitutional: Reports: fever Eyes: Denies: eye pain ENT: Denies: ear pain Respiratory: Reports: cough, dyspnea Cardiovascular: Denies: chest pain Endocrine: Reports: fatigue Gastrointestinal: Denies: abdominal pain Genitourinary: Denies: dysuria Musculoskeletal: Denies: back pain Skin: Denies: rash Neurological: Denies: weakness Past Medical History Additional Past Medical History / Comment(s): cirrhosis of liver History of Any Multi-Drug Resistant Organisms: None Reported Past Surgical History: Bowel Resection, Hernia Repair, Hysterectomy, Joint Replacement, Orthopedic Surgery Additional Past Surgical History / Comment(s): x4 laproscopy's Past Psychological History: No Psychological Hx Reported Smoking Status: Never smoker Past Alcohol Use History: None Reported Past Drug Use History: None Reported General Exam Limitations: no limitations General appearance: alert, in no apparent distress Head exam: Present: atraumatic Eye exam: Present: normal appearance Neck exam: Present: normal inspection Respiratory exam: Present: respiratory distress (Mild respiratory distress), wheezes Cardiovascular Exam: Present: regular rate, normal rhythm GI/Abdominal exam: Present: soft. Absent: tenderness Extremities exam: Present: normal inspection. Absent: pedal edema, calf tenderness Back exam: Present: normal inspection Neurological exam: Present: alert Psychiatric exam: Present: normal affect, normal mood Skin exam: Present: normal color Course Vital Signs 08/27/18 08/27/18 08/27/18 13:57 16:12 16:24 Temperature 98.2 F Pulse Rate 89 72 76 Respiratory 22 Rate Blood Pressure 123/54 O2 Sat by Pulse 96 Oximetry - Reevaluation(s) Reevaluation #1: 08/27/18 17:01 Patient does meet sepsis criteria with concern for pneumonia on x-ray at 1701. Culture and lactic acid have been ordered. IV antibiotics will be ordered. EKG Findings - EKG Comments: EKG Findings:: Normal sinus rhythm 77. CT 160. QRS 84. QT 404. QTC 457. Normal axis. Normal QRS. No acute ST change. Medical Decision Making - Medical Decision Making Patient reevaluated and slightly improved. Patient and family updated on results and plan. Patient states her hemoglobin and platelet levels are actually fairly normal for her and she is not overly worried about them. Patient states she is address this many times with her primary care physician however has not seen a appeals court associate justice for this. Dr. álvarez has been paged for admission. Consult will be placed for hematology as well as pulmonary. Patient will be covered with antibiotics for concern for pneumonia. - Lab Data Result diagrams: 08/27/18 16:01 08/27/18 16: Lab Results 08/27/18 08/27/18 08/27/18 Range/Units 16:01 16:01 16:01 WBC 12.5 H (3.8-10.6) k/uL RBC 2.67 L (3.80-5.40) m/uL Hgb 7.8 L (11.4-16.0) gm/dL Hct 25.8 L (34.0-46.0) % MCV 96.7 (80.0-100.0) fL MCH 29.2 (25.0-35.0) pg MCHC 30.2 L (31.0-37.0) g/dL RDW 21.3 H (11.5-15.5) % Plt Count 65 L (150-450) k/uL Neutrophils % 87 % Lymphocytes % 9 % Monocytes % 2 % Eosinophils % 1 % Basophils % 0 % Neutrophils # 10.9 H (1.3-7.7) k/uL Lymphocytes # 1.1 (1.0-4.8) k/uL Monocytes # 0.2 (0-1.0) k/uL Eosinophils # 0.1 (0-0.7) k/uL Basophils # 0.0 (0-0.2) k/uL Hypochromasia Marked Poikilocytosis Slight Anisocytosis Moderate Macrocytosis Slight PT (9.0-12.0) sec INR (<1.2) APTT (22.0-30.0) sec Sodium 139 (137-145) mmol/L Potassium 4.5 (3.5-5.1) mmol/L Chloride 111 H (98-107) mmol/L Carbon Dioxide 23 (22-30) mmol/L Anion Gap 5 mmol/L BUN 22 H (7-17) mg/dL Creatinine 1.15 H (0.52-1.04) mg/dL Est GFR (CKD-EPI)AfAm 57 (>60 ml/min/1.73 sqM) Est GFR (CKD-EPI)NonAf 50 (>60 ml/min/1.73 sqM) Glucose 146 H (74-99) mg/dL Calcium 8.5 (8.4-10.2) mg/dL Magnesium 1.7 (1.6-2.3) mg/dL Total Bilirubin 4.5 H (0.2-1.3) mg/dL AST 52 H (14-36) U/L ALT 31 (9-52) U/L Alkaline Phosphatase 185 H (38-126) U/L Troponin I (0.000-0.034) ng/mL NT-Pro-B Natriuret Pep 886 pg/mL Total Protein 5.4 L (6.3-8.2) g/dL Albumin 2.4 L (3.5-5.0) g/dL 08/27/18 08/27/18 Range/Units 16:01 16:01 WBC (3.8-10.6) k/uL RBC (3.80-5.40) m/uL Hgb (11.4-16.0) gm/dL Hct (34.0-46.0) % MCV (80.0-100.0) fL MCH (25.0-35.0) pg MCHC (31.0-37.0) g/dL RDW (11.5-15.5) % Plt Count (150-450) k/uL Neutrophils % % Lymphocytes % % Monocytes % % Eosinophils % % Basophils % % Neutrophils # (1.3-7.7) k/uL Lymphocytes # (1.0-4.8) k/uL Monocytes # (0-1.0) k/uL Eosinophils # (0-0.7) k/uL Basophils # (0-0.2) k/uL Hypochromasia Poikilocytosis Anisocytosis Macrocytosis PT 14.7 H (9.0-12.0) sec INR 1.5 H (<1.2) APTT 28.6 (22.0-30.0) sec Sodium (137-145) mmol/L Potassium (3.5-5.1) mmol/L Chloride (98-107) mmol/L Carbon Dioxide (22-30) mmol/L Anion Gap mmol/L BUN (7-17) mg/dL Creatinine (0.52-1.04) mg/dL Est GFR (CKD-EPI)AfAm (>60 ml/min/1.73 sqM) Est GFR (CKD-EPI)NonAf (>60 ml/min/1.73 sqM) Glucose (74-99) mg/dL Calcium (8.4-10.2) mg/dL Magnesium (1.6-2.3) mg/dL Total Bilirubin (0.2-1.3) mg/dL AST (14-36) U/L ALT (9-52) U/L Alkaline Phosphatase (38-126) U/L Troponin I <0.012 (0.000-0.034) ng/mL NT-Pro-B Natriuret Pep pg/mL Total Protein (6.3-8.2) g/dL Albumin (3.5-5.0) g/dL Critical Care Time Critical Care Time: Yes Total Critical Care Time: 32 Disposition Clinical Impression: Pneumonia, Sepsis Disposition: ADMITTED IP TO THIS HOSP Is patient prescribed a controlled substance at d/c from ED?: No Referrals: None,Stated [Primary Care Provider] - 1-2 days Decision Time: 17:01
--- NOTE | 2018-08-27 15:51 | XR ---
EXAMINATION TYPE: XR chest 2V DATE OF EXAM: 08/27/2018 COMPARISON: 09/14/2017 HISTORY: Difficulty breathing TECHNIQUE: Frontal and lateral views of the chest are obtained. FINDINGS: There is a retrocardiac left lower lobe masslike consolidation that is new from the prior of 09/14/2017. Remainder the lungs are clear. There is slight pulmonary hyperinflation that may relate to underlying COPD. Cardiomediastinal silhouette is upper limits of normal. Biapical pleural parenchy mal scarring is again chronic. No acute osseous pathology is seen. IMPRESSION: Masslike left lower lobe consolidation that may represent pneumonia or pulmonary mass. F ollow-up to resolution is recommended.
[2018-08-27 16:14] LABS: Anisocytosis Moderate; HCT 25.8 % (34.0-46.0); HGB 7.8 gm/dL (11.4-16.0); Hypochromasia Marked; MCH 29.2 pg (25.0-35.0); MCHC 30.2 g/dL (31.0-37.0); MCV 96.7 fL (80.0-100.0); Macrocytosis Slight; Mean Platelet Volume 11.7; Poikilocytosis Slight; RBC 2.67 m/uL (3.80-5.40); RDW 21.3 % (11.5-15.5); WBC 12.5 k/uL (3.8-10.6)
[2018-08-27 16:20] LABS: INR 1.5 (<1.2); Partial Thromboplastin Time 28.6 sec (22.0-30.0); Prothrombin Time 14.7 sec (9.0-12.0)
[2018-08-27 16:29] LABS: Albumin 2.4 g/dL (3.5-5.0); Calcium 8.5 mg/dL (8.4-10.2); Magnesium 1.7 mg/dL (1.6-2.3); Potassium 4.5 mmol/L (3.5-5.1); Total Bilirubin 4.5 mg/dL (0.2-1.3); Total Protein 5.4 g/dL (6.3-8.2)
[2018-08-27] MEDS ORDERED: IPRATROPIUM-ALBUTEROL 3 ML NEB INHALATION PRN (17:02)
[2018-08-27] MEDS ORDERED: PNEUMONIA PROTOCOL UTILIZED 1 EACH MISC PO PRN (17:02)
[2018-08-27] MEDS ORDERED: AZITHROMYCIN 500 MG in SODIUM CHLORIDE 0.9% 250 ML IVPB STA (17:02)
[2018-08-27 17:15] LABS: Band Neutrophils % 28 %; Eosinophils # (M) 0.13 k/uL (0-0.7); Lymphocytes # (M) 1.13 k/uL (1.0-4.8); Metamyelocytes # (M) 0.13 k/uL (0); Metamyelocytes % 1 %; Myelocytes # (M) 0.13 k/uL (0); Myelocytes % 1 %; Neutrophils % (M) 58 %; Nucleated Red Blood Cells 0 /100 WBC (0-0); Total Cells Counted 200
[2018-08-27 17:34] LABS: Platelet Count 65 k/uL (150-450); Polychromasia Present; Toxic Granulation Present
[2018-08-27 17:46] LABS: Large Platelets Present; Poikilocytosis (M) Present; Target Cells Present
[2018-08-27] MEDS: SODIUM CHLORIDE 0.9% 1,000 ML IV SCH (19:17)
[2018-08-27] MEDS: methylPREDNISolone SOD SUCCI 125 MG/2 ML VIAL IV SCH (19:43)
[2018-08-27] MEDS: IPRATROPIUM-ALBUTEROL 3 ML NEB INHALATION SCH (20:17)
[2018-08-27] MEDS ORDERED: ONDANSETRON 4 MG TAB PO PRN (22:23)
[2018-08-27] MEDS ORDERED: TRIMETHOBENZAMIDE 300 MG CAP PO PRN (22:31)
[2018-08-27] MEDS ORDERED: LACTULOSE 20 GM/30 ML CUP PO PRN (22:31)
[2018-08-28 00:15] VITALS: BMI 32.0
[2018-08-28] MEDS: methylPREDNISolone SOD SUCCI 125 MG/2 ML VIAL IV SCH ×5 (00:15→23:40)
[2018-08-28] MEDS: MELATONIN 3 MG TABLET PO SCH ×2 (00:45→20:41)
[2018-08-28] MEDS: SODIUM CHLORIDE 0.9% 1,000 ML IV SCH ×3 (02:41→23:26)
--- NOTE | 2018-08-28 07:28 | XR ---
EXAMINATION TYPE: XR chest 2V DATE OF EXAM: 08/28/2018 COMPARISON: Prior chest x-ray 08/27/2018 HISTORY: Pneumonia TECHNIQUE: Frontal and lateral views of the chest are obtained. FINDINGS: Patient is rotated. No significant interval change is evident. IMPRESSION: Correlate for left lower lobe pneumonia. Follow-up to resolution to exclude mass.
[2018-08-28 08:07] LABS: Anisocytosis Moderate; HCT 27.3 % (34.0-46.0); HGB 7.7 gm/dL (11.4-16.0); Hypochromasia Marked; MCH 28.5 pg (25.0-35.0); MCHC 28.4 g/dL (31.0-37.0); MCV 100.3 fL (80.0-100.0); Macrocytosis Moderate; Mean Platelet Volume 11.1; RBC 2.72 m/uL (3.80-5.40); RDW 21.4 % (11.5-15.5); WBC 12.9 k/uL (3.8-10.6)
[2018-08-28 08:15] LABS: Albumin 2.4 g/dL (3.5-5.0); Calcium 7.8 mg/dL (8.4-10.2); Potassium 4.8 mmol/L (3.5-5.1); Total Bilirubin 3.2 mg/dL (0.2-1.3); Total Protein 5.4 g/dL (6.3-8.2)
[2018-08-28 08:18] LABS: Platelet Count 68 k/uL (150-450)
[2018-08-28] MEDS: FUROSEMIDE 20 MG TAB PO SCH (08:28)
[2018-08-28] MEDS: RIFAXIMIN 550 MG TABLET PO SCH ×2 (08:29→20:41)
[2018-08-28] MEDS: AZITHROMYCIN 500 MG TAB PO SCH (08:29)
[2018-08-28] MEDS: PROPRANOLOL 20 MG TAB PO SCH ×2 (08:29→20:41)
[2018-08-28] MEDS: OXYBUTYNIN CHLORIDE 5 MG TAB PO SCH (08:30)
[2018-08-28] MEDS: IPRATROPIUM-ALBUTEROL 3 ML NEB INHALATION SCH ×4 (08:39→21:04)
[2018-08-28] MEDS ORDERED: LACTULOSE 20 GM/30 ML CUP PO SCH (09:00)
--- NOTE | 2018-08-28 10:27 | P.CONS ---
History of Present Illness - Reason for Consult Consult date: 08/28/18 Anemia and thrombocytopenia Requesting physician: John Abarca - Chief Complaint Difficulty in breathing - History of Present Illness Mrs. Trevino is a very pleasant 68-year-old female with a history of non EtOH liver cirrhosis for which she is on a liver transplant list, history of esophageal variceal banding, several instances, most recent was 5 years ago, patient does have EGDs about every 6 months, last one was 1 month ago. Patient follows with [facility] transplant team in [place]. She is currently on no immunosuppression. In regards to anemia states "never been normal" patient is aware of thrombocytopenia, she denies intervention other than oral iron supplementation that she was unable to tolerate. It has been mentioned to her before parenteral iron supplementation, she has never received any. Patient denies any recent hematemesis or coffee-ground emesis, patient states that she has occasionally awoke to blood in her mouth or blood on her pillow, this is not new or progressive, she denies acute changes in her bowels, no fevers, uninten tional weight loss, appetite is fair to good, energy levels are poor, she tires very easily, no other complaints. History of recurrent lung infections, no history of smoking, she is currently requiring oxygen. Review of Systems 14 point review of systems is negative except as stated in HPI Past Medical History Past Medical History: GI Bleed, Liver Disease Additional Past Medical History / Comment(s): NON ALCOHOL CIRRHOSIS OF LIVER - CURRENTLY ON LIVER TRANSPLANT LIST. 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 [facility] History of Any Multi-Drug Resistant Organisms: None Reported Past Surgical History: Bowel Resection, Hernia Repair, Hysterectomy, Joint R eplacement, Orthopedic Surgery Additional Past Surgical History / Comment(s): x4 laproscopy's Past Anesthesia/Blood Transfusion Reactions: No Reported Reaction Past Psychological History: No Psychological Hx Reported Smoking Status: Never smoker Past Alcohol Use History: None Reported Past Drug Use History: None Reported Additional History: No reported family history of blood disorders Medications and Allergies Home Medications Medication Instructions Recorded Confirmed Type Furosemide [Lasix] 20 mg PO DAILY 07/04/16 08/27/18 History Lactulose 20 gm PO TID 07/04/16 08/27/18 History Ondansetron [Zofran] 4 mg PO Q8HR PRN 07/04/16 08/27/18 History Propranolol [Inderal] 20 mg PO BID 07/04/16 08/27/18 History Rifaximin [Xifaxan] 550 mg PO BID 07/04/16 08/27/18 History Oxybutynin Chloride 5 mg PO DAILY 08/27/18 08/27/18 History Allergies Allergy/AdvReac Type Severity Reaction Status Date / Time No Known Allergies Allergy Verified 08/27/18 15:23 Physical Exam Vitals: Vital Signs Temp Pulse Pulse Resp BP BP Pulse Ox 08/28/18 08:48 82 08/28/18 08:39 80 08/28/18 08:28 16 08/28/18 07:11 97.8 F 89 16 114/61 99 08/28/18 05:49 90 08/28/18 05:40 96 20 08/28/18 00:52 97.7 F 88 18 106/50 98 08/27/18 23:29 18 08/27/18 22:44 98.2 F 84 19 120/42 97 08/27/18 20:31 85 08/27/18 20:20 90 08/27/18 19:00 87 18 121/65 99 08/27/18 16:24 76 08/27/18 16:12 72 08/27/18 16:00 88 18 107/50 98 08/27/18 13:57 98.2 F 89 22 123/54 96 Intake and Output 08/27/18 08/28/18 08/28/18 22:59 06:59 14:59 Other: Voiding Method Toilet # Voids 1 - Constitutional General appearance: cooperative, mild distress, obese - EENT Eyes: anicteric sclerae, EOMI, dentition normal, normal appearance ENT: no hard of hearing, hearing grossly normal, no NA/AT, normal oropharynx, no other, no pharyngeal erythema, no thrush, no tonsillar exudates, no tonsillar swelling - Neck Neck: no lymphadenopathy - Respiratory Respiratory: left: wheezing, bilateral: diminished - Cardiovascular Rhythm: regular Heart sounds: normal: S1, S2 Abnormal Heart Sounds: no systolic murmur, no diastolic murmur, no rub, no S3 Gallop, no S4 Gallop, no click, no other foot Peripheral Edema: bilateral: Trace - Gastrointestinal General gastrointestinal: no absent bowel sounds, no decreased bowel sounds, no distended, no hepatomegaly, no hyperactive bowel sounds, normal bowel sounds, no organomegaly, no rigid, no scaphoid, soft, no splenomegaly, no tenderness, no umbilical hernia, no ventral hernia - Integumentary Integumentary: normal turgor, pale - Neurologic Neurologic: CNII-XII intact - Musculoskeletal Musculoskeletal: strength equal bilaterally - Psychiatric Psychiatric: A&O x's 3, appropriate affect, intact judgment & insight Results CBC & Chem 7: 08/28/18 07:38 08/28/18 07:38 Labs: Abnormal Lab Results - Last 24 Hours (Table) 08/27/18 08/27/18 08/27/18 Range/Units 16:01 16:01 16:01 WBC 12.5 H (3.8-10.6) k/uL RBC 2.67 L (3.80-5.40) m/uL Hgb 7.8 L (11.4-16.0) gm/dL Hct 25.8 L (34.0-46.0) % MCV (80.0-100.0) fL MCHC 30.2 L (31.0-37.0) g/dL RDW 21.3 H (11.5-15.5) % Plt Count 65 L (150-450) k/uL Neutrophils # (Manual) 10.70 H (1.3-7.7) k/uL Metamyelocytes # (Man) 0.13 H (0) k/uL Myelocytes # (Manual) 0.13 H (0) k/uL PT 14.7 H (9.0-12.0) sec INR 1.5 H (<1.2) Chloride 111 H (98-107) mmol/L Carbon Dioxide (22-30) mmol/L BUN 22 H (7-17) mg/dL Creatinine 1.15 H (0.52-1.04) mg/dL Glucose 146 H (74-99) mg/dL Plasma Lactic Acid Sin (0.7-2.0) mmol/L Calcium (8.4-10.2) mg/dL Total Bilirubin 4.5 H (0.2-1.3) mg/dL AST 52 H (14-36) U/L Alkaline Phosphatase 185 H (38-126) U/L Total Protein 5.4 L (6.3-8.2) g/dL Albumin 2.4 L (3.5-5.0) g/dL 08/27/18 08/27/18 08/28/18 Range/Units 17:44 21:25 07:38 WBC (3.8-10.6) k/uL RBC (3.80-5.40) m/uL Hgb (11.4-16.0) gm/dL Hct (34.0-46.0) % MCV (80.0-100.0) fL MCHC (31.0-37.0) g/dL RDW (11.5-15.5) % Plt Count (150-450) k/uL Neutrophils # (Manual) (1.3-7.7) k/uL Metamyelocytes # (Man) (0) k/uL Myelocytes # (Manual) (0) k/uL PT (9.0-12.0) sec INR (<1.2) Chloride (98-107) mmol/L Carbon Dioxide (22-30) mmol/L BUN (7-17) mg/dL Creatinine (0.52-1.04) mg/dL Glucose (74-99) mg/dL Plasma Lactic Acid Sin 2.9 H* 4.2 H* 3.1 H* (0.7-2.0) mmol/L Calcium (8.4-10.2) mg/dL Total Bilirubin (0.2-1.3) mg/dL AST (14-36) U/L Alkaline Phosphatase (38-126) U/L Total Protein (6.3-8.2) g/dL Albumin (3.5-5.0) g/dL 08/28/18 08/28/18 Range/Units 07:38 07:38 WBC 12.9 H (3.8-10.6) k/uL RBC 2.72 L (3.80-5.40) m/uL Hgb 7.7 L (11.4-16.0) gm/dL Hct 27.3 L (34.0-46.0) % MCV 100.3 H (80.0-100.0) fL MCHC 28.4 L (31.0-37.0) g/dL RDW 21.4 H (11.5-15.5) % Plt Count (150-450) k/uL Neutrophils # (Manual) (1.3-7.7) k/uL Metamyelocytes # (Man) (0) k/uL Myelocytes # (Manual) (0) k/uL PT (9.0-12.0) sec INR (<1.2) Chloride 115 H (98-107) mmol/L Carbon Dioxide 19 L (22-30) mmol/L BUN 32 H (7-17) mg/dL Creatinine 1.12 H (0.52-1.04) mg/dL Glucose 144 H (74-99) mg/dL Plasma Lactic Acid Sin (0.7-2.0) mmol/L Calcium 7.8 L (8.4-10.2) mg/dL Total Bilirubin 3.2 H (0.2-1.3) mg/dL AST 47 H (14-36) U/L Alkaline Phosphatase (38-126) U/L Total Protein 5.4 L (6.3-8.2) g/dL Albumin 2.4 L (3.5-5.0) g/dL Chest x-ray: report reviewed Assessment and Plan (1) Anemia Current Visit: Yes Status: Chronic Priority: Medium Code(s): D64.9 - ANEMIA, UNSPECIFIED SNOMED Code(s): 635872175 (2) Thrombocytopenia Current Visit: Yes Status: Chronic Priority: Medium Code(s): D69.6 - THROMBOCYTOPENIA, UNSPECIFIED SNOMED Code(s): 132779598 Plan: On chart review patient is noted to have anemia and thrombocytopenia, to some degree, at least since December 2016. With patient's chronic liver disease intestinal malabsorption and increased iron losses via the GI tract could be anticipated. Chronic liver disease also puts her at increased risk for splenic sequestration and destruction of platelets and decreased thrombopoietin production. Neither patient's anemia or thrombocytopenia is requiring acute transfusion. Anemia workup has been ordered. Pt states history of intolerance to oral supplementation. Parenteral iron supplementation has been offered to her locally if deficient and if she so desires. We will follow-up with labs in the a.m., make further recommendations and follow patient's CBC while inpatient Doctor attests: I performed a history and physical examination of this patient with dictator. I have developed impression and plan, agree with dictators note, documented as a scribe.
[2018-08-28] MEDS: PIPERACILLIN-TAZOBACTAM 3.375 GM in SODIUM CHLORIDE 0.9% 100 ML IVPB SCH ×2 (13:08→20:41)
[2018-08-28] MEDS ORDERED: ALPRAZolam 0.25 MG TAB PO PRN (13:36)
[2018-08-28] MEDS ORDERED: SODIUM CHLORIDE 0.9% 500 ML 500 ML IV ONE (15:29)
--- NOTE | 2018-08-28 17:18 | P.CNPUL ---
History of Present Illness Consult date: 08/28/18 Requesting physician: Baltazar E Sheet Reason for consult: dyspnea, abnormal CXR/CT Chief complaint: Left lower lobe pneumonia History of present illness: This is 68-year-old white female patient with past medical history of nonalcoholic liver cirrhosis and is on the liver transplant list, lifetime nonsmoker, chronic anemia, history of esophageal variceal banding, who presented to the hospital on 08/27/2018 with complaints of worsening shortness of breath and fever. Patient states she has been chronically short of breath for a period of over a year, but her dyspnea has become progressively worse 's 2 AM on 08/27/2018, she developed a dry cough and a fever, she was wheezing. Patient did have a one episode of nonbloody nonbilious emesis on the way to the hospital, no abdominal pain or diarrhea, she denied any sick contacts. D-dimer was elevated, and CT angios was completed and revealed no acute pulmonary embolism however it did show atypical mass in the left lung, and patient report ed that she had a fever from living in [place] and that she was aware of this mass in her lung. He was treated with antipyretics, was given some supplemental oxygen, breathing treatments and was discharged home with instructions to follow up with primary care provider. However after arriving at home her symptoms became worse, and she returned for reevaluation. Lab work showed a low blood cell, 12.5, hemoglobin is 7.8, INR is 1.5, sodium is 139, potassium is 4.5, chloride is 111, CO2 is 23, B1 is 22, creatinine is 1.15, plasma lactic acid was elevated at 2.9, and actually subsequently increased to 4.2 despite IV hydration, troponin was negative 1, proBNP was 886. Patient was started on IV antibiotics in the form of Zithromax and Rocephin, and later Rocephin was switched to Zosyn, IV steroids, she was fluid resuscitated in the emergency department, and she is having IV fluids infusing at a rate of 100 ML per hour. Patient has been chronically anemic, and apparently she was told to take iron supplements which she has not been able to tolerate. I'll chest x-ray today showed left lower lobe consolidation suspicious for pneumonic infiltrate or mass. Chest x-ray from 05/21/2018 did not show the left lower consolidation seen on present exams, making it more likely to be related to underlying pneumonia, then a pulmonary mass. Review of Systems All systems: negative Constitutional: Denies chills, Denies fever Eyes: denies blurred vision, denies pain Ears, nose, mouth and throat: Denies headache, Denies sore throat Cardiovascular: Denies chest pain, Denies shortness of breath Respiratory: Reports dyspnea, Denies cough Gastrointestinal: Denies abdominal pain, Denies diarrhea, Denies nausea, Denies vomiting Genitourinary: Denies dysuria, Denies hematuria Musculoskeletal: Denies myalgias Integumentary: Denies pruritus, Denies rash Neurological: Denies numbness, Denies weakness Psychiatric: Denies anxiety, Denies depression Endocrine: Denies fatigue, Denies weight change Past Medical History Past Medical History: GI Bleed, Liver Disease Additional Past Medical History / Comment(s): NON ALCOHOL CIRRHOSIS OF LIVER - CURRENTLY ON LIVER TRANSPLANT LIST. 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 [facility] History of Any Multi-Drug Resistant Organisms: None Reported Past Surgical History: Bowel Resection, Hernia Repair, Hysterectomy, Joint Replacement, Orthopedic Surgery Additional Past Surgical History / Comment(s): x4 laproscopy's Past Anesthesia/Blood Transfusion Reactions: No Reported Reaction Past Psychological History: No Psychological Hx Reported Smoking Status: Never smoker Past Alcohol Use History: None Reported Past Drug Use History: None Reported Medications and Allergies Home Medications Medication Instructions Recorded Confirmed Type Furosemide [Lasix] 20 mg PO DAILY 07/04/16 08/27/18 History Lactulose 20 gm PO TID 07/04/16 08/27/18 History Ondansetron [Zofran] 4 mg PO Q8HR PRN 07/04/16 08/27/18 History Propranolol [Inderal] 20 mg PO BID 07/04/16 08/27/18 History Rifaximin [Xifaxan] 550 mg PO BID 07/04/16 08/27/18 History Oxybutynin Chloride 5 mg PO DAILY 08/27/18 08/27/18 History Allergies Allergy/AdvReac Type Severity Reaction Status Date / Time No Known Allergies Allergy Verified 08/27/18 15:23 Physical Exam Vitals: Vital Signs Temp Pulse Pulse Resp BP BP BP 08/28/18 14:08 97.5 F L 95 90/50 80/36 08/28/18 12:05 79 08/28/18 11:53 78 08/28/18 08:48 82 08/28/18 08:39 80 08/28/18 08:28 16 08/28/18 07:11 97.8 F 89 16 114/61 08/28/18 05:49 90 08/28/18 05:40 96 20 08/28/18 00:52 97.7 F 88 18 106/50 08/27/18 23:29 18 08/27/18 22:44 98.2 F 84 19 120/42 08/27/18 20:31 85 08/27/18 20:20 90 08/27/18 19:00 87 18 121/65 Pulse Ox 08/28/18 14:08 98 08/28/18 12:05 08/28/18 11:53 08/28/18 08:48 08/28/18 08:39 08/28/18 08:28 08/28/18 07:11 99 08/28/18 05:49 08/28/18 05:40 08/28/18 00:52 98 08/27/18 23:29 08/27/18 22:44 97 08/27/18 20:31 08/27/18 20:20 08/27/18 19:00 99 Intake and Output 08/28/18 08/28/18 08/28/18 06:59 14:59 22:59 Other: Voiding Method Toilet # Voids 1 GENERAL EXAM: Alert, pleasant, obese 68-year-old white female comfortable in no apparent distress. HEAD: Normocephalic/atraumatic. EYES: Normal reaction of pupils, equal size. Conjunctiva pink, sclera white. NOSE: Clear with pink turbinates. THROAT: No erythema or exudates. NECK: No masses, no JVD, no thyroid enlargement, no adenopathy. CHEST: No chest wall deformity. Symmetrical expansion. LUNGS: Equal air entry with coarse inspiratory crackles over left lower lobe CVS: Regular rate and rhythm, normal S1 and S2, no gallops, no murmurs, no rubs ABDOMEN: Soft, nontender. No hepatosplenomegaly, normal bowel sounds, no guarding or rigidity. EXTREMITIES: No clubbing, no edema, no cyanosis, 2+ pulses and upper and lower extremities. MUSCULOSKELETAL: Muscle strength and tone normal. SPINE: No scoliosis or deformity SKIN: No rashes CENTRAL NERVOUS SYSTEM: Alert and oriented -3. No focal deficits, tone is normal in all 4 extremities. PSYCHIATRIC: Alert and oriented -3. Appropriate affect. Intact judgment and insight. Results - Laboratory Findings CBC and BMP: 08/28/18 07:38 08/28/18 07:38 PT/INR, D-dimer PT 14.7 sec (9.0-12.0) H 08/27/18 16:01 INR 1.5 (<1.2) H 08/27/18 16:01 Abnormal lab findings: Abnormal Labs 08/27/18 08/27/18 08/27/18 16:01 16:01 16:01 WBC 12.5 H RBC 2.67 L Hgb 7.8 L Hct 25.8 L MCV MCHC 30.2 L RDW 21.3 H Plt Count 65 L Neutrophils # (Manual) 10.70 H Metamyelocytes # (Man) 0.13 H Myelocytes # (Manual) 0.13 H PT 14.7 H INR 1.5 H Chloride 111 H Carbon Dioxide BUN 22 H Creatinine 1.15 H Glucose 146 H Plasma Lactic Acid Sin Calcium Total Bilirubin 4.5 H AST 52 H Alkaline Phosphatase 185 H Total Protein 5.4 L Albumin 2.4 L 08/27/18 08/27/18 08/28/18 17:44 21:25 07:38 WBC RBC Hgb Hct MCV MCHC RDW Plt Count Neutrophils # (Manual) Metamyelocytes # (Man) Myelocytes # (Manual) PT INR Chloride Carbon Dioxide BUN Creatinine Glucose Plasma Lactic Acid Sin 2.9 H* 4.2 H* 3.1 H* Calcium Total Bilirubin AST Alkaline Phosphatase Total Protein Albumin 08/28/18 08/28/18 08/28/18 07:38 07:38 11:50 WBC 12.9 H RBC 2.72 L Hgb 7.7 L Hct 27.3 L MCV 100.3 H MCHC 28.4 L RDW 21.4 H Plt Count 68 L Neutrophils # (Manual) Metamyelocytes # (Man) Myelocytes # (Manual) PT INR Chloride 115 H Carbon Dioxide 19 L BUN 32 H Creatinine 1.12 H Glucose 144 H Plasma Lactic Acid Sin 4.9 H* Calcium 7.8 L Total Bilirubin 3.2 H AST 47 H Alkaline Phosphatase Total Protein 5.4 L Albumin 2.4 L - Diagnostic Findings Chest x-ray: report reviewed, image reviewed CT scan - chest: report reviewed, image reviewed Additional studies: EKG reviewed Assessment and Plan Plan: Assessment: #1. Acute hypoxemic respiratory failure secondary to left lower lung pneumonia, community acquired, in the immunocompromised patient. Chest x-ray and CT angios revealed left lower lung consolidation or mass, and previously taken chest x-ray in the May 2018 did not have this finding, making it more likely to be acute and more likely to be related to underlying pneumonia rather than a pulmonary malignancy. #2. Lactic acidemia, without signs of hypoperfusion, and the patient with chronic liver disease #3. Chronic nonalcoholic liver cirrhosis patient is on the transplant list #4. Chronic anemia #5. Last time nonsmoker #6. Obesity #7. History of esophageal variceal banding #8. History of bowel resection, hernia repair Plan: We'll continue with current antibiotic coverage, send sputum for culture, continue nebulized bronchodilators, continue the IV steroids, chest x-rays CTA chest and labs have been reviewed with the patient, and patient's presentation, and radiographic results consistent with left lower lobe pneumonia. We will continue to follow and make further recommendations, I performed a history & physical examination of the patient and discussed their management with my nurse practitioner, Deisi Martinez. I reviewed the nurse practitioner's note and agree with the documented findings and plan of care. Lung sounds are positive for diminished breath sounds at the bases, and left lower lobe crackles. The findings and the impression was discussed with the patient. I attest to the documentation by the nurse practitioner. Time with Patient: Greater than 30
[2018-08-28 19:40] LABS: Iron Saturation 9.63 (12.00-45.00)
--- NOTE | 2018-08-28 20:19 | HP ---
HISTORY AND PHYSICAL DATE OF SERVICE: 08/28/2018 CHIEF COMPLAINTS: Shortness of breath and cough. HISTORY OF PRESENT ILLNESS: This 68-year-old woman with a past medical history of multiple medical problems, including known alcoholic cirrhosis of the liver, being followed by [facility], currently on liver transplant list, also had history of GI bleed, bowel obstruction, hernia repair, hysterectomy, DJD. The patient was complaining of shortness of breath and cough for the past several days. The patient has some mucopurulent sputum. The patient also apparently had some shortness of breath previously and the throat has some scarring of the also. The patient was also taking some nebulizer treatment with an old nebulizer available. The patient is admitted for further evaluation. Chest x-ray showed evidence of left lower pneumonia. The patient also had elevated lactic acid, features of sepsis. The patient was admitted for further evaluation and treatment. Broad-spectrum IV antibiotics are given. Hemoglobin is 7.7. Dr. Mojica's evaluation is in progress. The previous hemoglobin was around 9 in early May of this year. PAST MEDICAL HISTORY: 1. History of nonalcoholic cirrhosis of liver. 2. History of GI bleed. 3. History of bowel resection. 4. Hernia repair. 5. Hysterectomy. 6. DJD. HOME MEDICATIONS: 1. Oxybutynin 5 mg p.o. daily. 2. Xifaxan 550 mg p.o. b.i.d. 3. Inderal 20 mg p.o. b.i.d. 4. Zofran 4 mg q.8 p.r.n. 5. Lactulose 20 mg p.o. t.i.d. 6. Lasix 20 mg p.o. daily. ALLERGIES: NONE. FAMILY HISTORY: No history of any heart disease or strokes in the family. SOCIAL HISTORY: No history of any alcohol. No history of any smoking or substance abuse. REVIEW OF SYSTEMS: ENT: No diminished hearing. No diminished vision. CARDIOVASCULAR SYSTEM: No angina, palpitations. RESPIRATORY SYSTEM: As mentioned earlier. GI: No nausea, vomiting. : No dysuria or retention. NERVOUS SYSTEM: No numbness, weakness. ALLERGY/IMMUNOLOGY: No asthma, hayfever. MUSCULOSKELETAL: As mentioned earlier. HEMATOLOGY/ONCOLOGY: No history of anemia. ENDOCRINE: No history of diabetes, hypothyroidism. CONSTITUTIONAL: As mentioned earlier. DERMATOLOGY: Negative. RHEUMATOLOGY: Negative. PSYCHIATRY: As mentioned earlier. PHYSICAL EXAMINATION: Patient is alert, oriented x3. Pulse is 95, blood pressure 90/50, respiration 20, temperature 97.5, pulse ox 98% on room air. HEENT: Conjunctivae normal. Oral mucosa moist. NECK: No jugular venous distention. No carotid bruit. No lymph node enlargement. CARDIOVASCULAR SYSTEM: S1, S2 muffled. No S3. No S4. RESPIRATORY SYSTEM: Breath sounds diminished at the bases. A few scattered rhonchi and crackles. Expiratory wheezing also present. ABDOMEN: Soft, non-tender. No mass palpable. LEGS: No edema. No swelling. NERVOUS SYSTEM: Higher functions as mentioned earlier. Moves all 4 limbs. No focal motor or sensory deficit. LYMPHATICS: No lymph node palpable in neck, axillae or groin. JOINTS: No active deforming arthropathy. LABS: WBC 12.9, hemoglobin 7.7, sodium 139, potassium 4.8, creatinine 1.12, plasma lactic acid 3.1 and 4.9. Albumin is 2.4. ASSESSMENT: 1. Acute left lower lobe pneumonia with possible severe sepsis and septic shock and hypotension. 2. Elevated plasma lactic acid. 3. Anemia, macrocytic, possibly secondary to chronic liver disease. 4. Known alcoholic cirrhosis of the liver, on transplant list. 5. Increased creatinine with mild acute renal failure, possibly prerenal, multifactorial. 6. Hypoalbuminemia. 7. Increased white count. 8. Thrombocytopenia from liver disease. 9. History of gastrointestinal bleed. 10.History of bowel resection. 11.History of hysterectomy. 12.History of degenerative joint disease. RECOMMENDATIONS AND DISCUSSION: In this 68-year-old woman who presented with multiple complex medical issues, we will monitor the patient closely, continue the current management, continue symptomatic treatment. Will initiate broad-spectrum IV antibiotics. Otherwise, IV fluids. I would also recommend a 2D echo with Doppler. Dr. Mojica has been consulted. I would also consult Hematology/Oncology and Gastroenterology. The overall prognosis is guarded because of multiple complex medical issues. Further recommendations to follow. The patient has been previously followed by . MMODL / IJN: [id number] / MTDD
[2018-08-28] MEDS: HEPARIN SODIUM,PORCINE 5,000 UNIT/ML 1 ML VIAL SQ SCH (20:41)
--- NOTE | 2018-08-28 22:19 | P.CONS ---
History of Present Illness - Reason for Consult Consult date: 08/28/18 Infection elevated lactic acid Requesting physician: Ashu Johnson - Chief Complaint Shortness of breath x 1 day - History of Present Illness Patient is a 68 year female with past medical history significant for nonalcoholic liver cirrhosis currently on the liver transplant list not on any immunosuppressive medication presenting initially to the [facility] ER on 08/27/2018 only in the morning this she complains of increasing shortness of breath and wheezing that apparently woke the patient up that night with increasing shortness of breath the patient did have mild cough is dry in nature denies having any URI symptoms did have an episode of vomiting on the way to the ER on arrival to the patient did have a fever she did have a CT angiogram of the chest which was negative for PE did shows left lower lobe mass like consolidation, patient was given antipyretics and discharged home however after the patient arrived at home she has worsening symptoms of shortness of breath and she presented back to the [facility] ER , chest x-ray was reported as left lower lobe pneumonia patient did not have any fever on presentation this time did have elevated white count 12.9 as well as elevated lactic acid patient been diagnosed with chlamydia acquired pneumonia and was started on Rocephin and Zithromax Rocephin and subsequently switched over to Zosyn and infectious disease was consulted for further recommendation regarding antibiotic therapy Review of Systems Review of system Constitutional: The patient complaining of fever or rigors or chills, the patient does complain of weakness. Eyes: No complaint ENT: No complaint Respiratory: As per history of present illness Cardiovascular: No complaint Gastrointestinal: As per history of present illness Genitourinary: No complaint Musculoskeletal: No complaint Integumentary: No complaint Endocrine : No complaint Psycologial : No complaint Neurological: No complaint. Past Medical History Past Medical History: GI Bleed, Liver Disease Additional Past Medical History / Comment(s): NON ALCOHOL CIRRHOSIS OF LIVER - CURRENTLY ON LIVER TRANSPLANT LIST. 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 [facility] History of Any Multi-Drug Resistant Organisms: None Reported Past Surgical History: Bowel Resection, Hernia Repair, Hysterectomy, Joint Replacement, Orthopedic Surgery Additional Past Surgical History / Comment(s): x4 laproscopy's Past Anesthesia/Blood Transfusion Reactions: No Reported Reaction Past Psychological History: No Psychological Hx Reported Smoking Status: Never smoker Past Alcohol Use History: None Reported Past Drug Use History: None Reported Medications and Allergies Home Medications Medication Instructions Recorded Confirmed Type Furosemide [Lasix] 20 mg PO DAILY 07/04/16 08/27/18 History Lactulose 20 gm PO TID 07/04/16 08/27/18 History Ondansetron [Zofran] 4 mg PO Q8HR PRN 07/04/16 08/27/18 History Propranolol [Inderal] 20 mg PO BID 07/04/16 08/27/18 History Rifaximin [Xifaxan] 550 mg PO BID 07/04/16 08/27/18 History Oxybutynin Chloride 5 mg PO DAILY 08/27/18 08/27/18 History Allergies Allergy/AdvReac Type Severity Reaction Status Date / Time No Known Allergies Allergy Verified 08/27/18 15:23 Physical Exam Vitals: Vital Signs Temp Pulse Pulse Resp BP BP BP 08/28/18 14:08 97.5 F L 95 90/50 80/36 08/28/18 12:05 79 08/28/18 11:53 78 08/28/18 08:48 82 08/28/18 08:39 80 08/28/18 08:28 16 08/28/18 07:11 97.8 F 89 16 114/61 08/28/18 05:49 90 08/28/18 05:40 96 20 08/28/18 00:52 97.7 F 88 18 106/50 08/27/18 23:29 18 08/27/18 22:44 98.2 F 84 19 120/42 08/27/18 20:31 85 08/27/18 20:20 90 08/27/18 19:00 87 18 121/65 Pulse Ox 08/28/18 14:08 98 08/28/18 12:05 08/28/18 11:53 08/28/18 08:48 08/28/18 08:39 08/28/18 08:28 08/28/18 07:11 99 08/28/18 05:49 08/28/18 05:40 08/28/18 00:52 98 08/27/18 23:29 08/27/18 22:44 97 08/27/18 20:31 08/27/18 20:20 08/27/18 19:00 99 Intake and Output 08/28/18 08/28/18 08/28/18 06:59 14:59 22:59 Other: Voiding Method Toilet # Voids 1 General: The patient is awake and alert, in no distress. Skin: no rashes and no masses palpable. Eye: Pupils are equal, round, there is normal conjunctiva bilaterally. Ears, nose, mouth and throat: There are moist mucous membranes and no oral lesions. Neck: The neck is supple, there is no thyromegaly. Cardiovascular: S1-S2 regular rate and rhythm. No murmur. Respiratory: Unlabored breathing, was present at the left base no wheeze Gastrointestinal: Soft, non-distended, non-tender abdomen Neurological: There are no obvious motor or sensory deficits. Coordination appears grossly intact. Speech is normal. Psychiatric: Patient is awake and alert and oriented 3, appropriate mood & affect, normal judgment. Results CBC & Chem 7: 08/28/18 07:38 08/28/18 07:38 Labs: Abnormal Lab Results - Last 24 Hours (Table) 08/27/18 08/27/18 08/27/18 Range/Units 16:01 17:44 21:25 WBC (3.8-10.6) k/uL RBC (3.80-5.40) m/uL Hgb (11.4-16.0) gm/dL Hct (34.0-46.0) % MCV (80.0-100.0) fL MCHC (31.0-37.0) g/dL RDW (11.5-15.5) % Plt Count 65 L (150-450) k/uL Neutrophils # (Manual) 10.70 H (1.3-7.7) k/uL Metamyelocytes # (Man) 0.13 H (0) k/uL Myelocytes # (Manual) 0.13 H (0) k/uL Chloride (98-107) mmol/L Carbon Dioxide (22-30) mmol/L BUN (7-17) mg/dL Creatinine (0.52-1.04) mg/dL Glucose (74-99) mg/dL Plasma Lactic Acid Sin 2.9 H* 4.2 H* (0.7-2.0) mmol/L Calcium (8.4-10.2) mg/dL Total Bilirubin (0.2-1.3) mg/dL AST (14-36) U/L Total Protein (6.3-8.2) g/dL Albumin (3.5-5.0) g/dL 08/28/18 08/28/18 08/28/18 Range/Units 07:38 07:38 07:38 WBC 12.9 H (3.8-10.6) k/uL RBC 2.72 L (3.80-5.40) m/uL Hgb 7.7 L (11.4-16.0) gm/dL Hct 27.3 L (34.0-46.0) % MCV 100.3 H (80.0-100.0) fL MCHC 28.4 L (31.0-37.0) g/dL RDW 21.4 H (11.5-15.5) % Plt Count 68 L (150-450) k/uL Neutrophils # (Manual) (1.3-7.7) k/uL Metamyelocytes # (Man) (0) k/uL Myelocytes # (Manual) (0) k/uL Chloride 115 H (98-107) mmol/L Carbon Dioxide 19 L (22-30) mmol/L BUN 32 H (7-17) mg/dL Creatinine 1.12 H (0.52-1.04) mg/dL Glucose 144 H (74-99) mg/dL Plasma Lactic Acid Sin 3.1 H* (0.7-2.0) mmol/L Calcium 7.8 L (8.4-10.2) mg/dL Total Bilirubin 3.2 H (0.2-1.3) mg/dL AST 47 H (14-36) U/L Total Protein 5.4 L (6.3-8.2) g/dL Albumin 2.4 L (3.5-5.0) g/dL 08/28/18 Range/Units 11:50 WBC (3.8-10.6) k/uL RBC (3.80-5.40) m/uL Hgb (11.4-16.0) gm/dL Hct (34.0-46.0) % MCV (80.0-100.0) fL MCHC (31.0-37.0) g/dL RDW (11.5-15.5) % Plt Count (150-450) k/uL Neutrophils # (Manual) (1.3-7.7) k/uL Metamyelocytes # (Man) (0) k/uL Myelocytes # (Manual) (0) k/uL Chloride (98-107) mmol/L Carbon Dioxide (22-30) mmol/L BUN (7-17) mg/dL Creatinine (0.52-1.04) mg/dL Glucose (74-99) mg/dL Plasma Lactic Acid Sin 4.9 H* (0.7-2.0) mmol/L Calcium (8.4-10.2) mg/dL Total Bilirubin (0.2-1.3) mg/dL AST (14-36) U/L Total Protein (6.3-8.2) g/dL Albumin (3.5-5.0) g/dL Assessment and Plan Assessment: 1-patient presented to hospital with increasing shortness of breath patient also have a cough did have a fever with elevated white count with evidence of left lower lobe pneumonia likely community acquired underlying gram-negative pneumonia less likely but not entirely excluded (1) Pneumonia Current Visit: Yes Status: Acute Code(s): J18.9 - PNEUMONIA, UNSPECIFIED ORGANISM SNOMED Code(s): 895579181 (2) Sepsis Current Visit: Yes Status: Acute Code(s): A41.9 - SEPSIS, UNSPECIFIED ORGANISM SNOMED Code(s): 10129793 Plan: 1-we will obtain sputum for Gram stain and culture 2-blood culture has been obtained those will be followed 3-continue Zosyn 3.375 g every 8 hours in addition to the Zithromax we will follow-up clinical condition and cultures to further adjust medication if needed Thank you for this consultation will follow this patient along with you Time with Patient: Greater than 30
[2018-08-29] MEDS: HYDROcodone/APAP 5-325MG 1 EACH TAB PO PRN ×3 (01:30→22:18)
[2018-08-29] MEDS: methylPREDNISolone SOD SUCCI 125 MG/2 ML VIAL IV SCH ×4 (06:13→23:19)
[2018-08-29] MEDS: PIPERACILLIN-TAZOBACTAM 3.375 GM in SODIUM CHLORIDE 0.9% 100 ML IVPB SCH ×3 (06:13→22:14)
[2018-08-29 08:38] LABS: Calcium 7.4 mg/dL (8.4-10.2); Potassium 5.1 mmol/L (3.5-5.1)
[2018-08-29 08:43] LABS: Anisocytosis Moderate; Basophils % (A) 0 %; Eosinophils % (A) 0 %; HCT 26.3 % (34.0-46.0); HGB 7.9 gm/dL (11.4-16.0); Hypochromasia Marked; Lymphocytes # (A) 1.2 k/uL (1.0-4.8); Lymphocytes % (A) 14 %; MCH 29.6 pg (25.0-35.0); MCHC 29.8 g/dL (31.0-37.0); MCV 99.1 fL (80.0-100.0); Macrocytosis Moderate; Mean Platelet Volume 11.7; Monocytes # (A) 0.3 k/uL (0-1.0); Monocytes % (A) 4 %; Neutrophils # (A) 6.8 k/uL (1.3-7.7); Neutrophils % (A) 80 %; RBC 2.65 m/uL (3.80-5.40); RDW 21.1 % (11.5-15.5); WBC 8.5 k/uL (3.8-10.6)
[2018-08-29 08:51] LABS: Platelet Count 69 k/uL (150-450)
[2018-08-29] MEDS: IPRATROPIUM-ALBUTEROL 3 ML NEB INHALATION SCH ×4 (08:57→21:58)
[2018-08-29] MEDS: RIFAXIMIN 550 MG TABLET PO SCH ×2 (09:13→22:13)
[2018-08-29] MEDS: FUROSEMIDE 20 MG TAB PO SCH (09:13)
[2018-08-29] MEDS: OXYBUTYNIN CHLORIDE 5 MG TAB PO SCH (09:13)
[2018-08-29] MEDS: PROPRANOLOL 20 MG TAB PO SCH ×2 (09:13→22:13)
[2018-08-29] MEDS: AZITHROMYCIN 500 MG TAB PO SCH (09:13)
[2018-08-29 09:22] LABS: Large Platelets Present; Toxic Granulation Present
[2018-08-29] MEDS: SODIUM FERRIC GLUCONAT-SUCROSE 125 MG in SODIUM CHLORIDE 0.9% 100 ML IVPB SCH (10:25)
--- NOTE | 2018-08-29 10:26 | ECHOF ---
Referral Reason:infection MEASUREMENTS -------- HEIGHT: 167.6 cm WEIGHT: 90.7 kg BP: 114/61 RVIDd: 3.7 cm (< 3.3) IVSd: 1.2 cm (0.6 - 1.1) LVIDd: 3.7 cm (3.9 - 5.3) LVPWd: 1.3 cm (0.6 - 1.1) IVSs: 1.6 cm LVIDs: 2.6 cm LVPWs: 1.8 cm LA Diam: 3.6 cm (2.7 - 3.8) LAESV Index (A-L): 25.22 ml/m Ao Diam: 3.1 cm (2.0 - 3.7) AV Cusp: 1.7 cm (1.5 - 2.6) MV EXCURSION: 15.618 mm (> 18.000) MV EF SLOPE: 62 mm/s (70 - 150) EPSS: 0.6 cm MV E Lex: 1.61 m/s MV DecT: 243 ms MV A Lex: 1.48 m/s MV E/A Ratio: 1.09 AV maxP.80 mmHg AV meanP.73 mmHg RAP: 5.00 mmHg RVSP: 48.50 mmHg FINDINGS -------- Sinus rhythm. This was a technically adequate study. The left ventricular size is normal. There is mild concentric left ventricular hypertrophy. Overa ll left ventricular systolic function is normal with, an EF between 60 - 65 %. The right ventricle is mild to moderately enlarged. Normal LA size by volume 22+/-6 ml/m2. The right atrium is normal in size. Interatrial and interventricular septum intact. There is mild aortic valve sclerosis. There is mild aortic stenosis present. Peak/mean gradient a cross the Aortic Valve is 22.80mmHg / 8.73mmHg. The mitral valve leaflets are mildly thickened. Mild mitral annular calcification present. The p eak and mean MV gradients are 17.31mmHg 7.62mmHg as measured by doppler. Mild tricuspid regurgitation present. There is moderate pulmonary hypertension. The right ventric ular systolic pressure, as measured by Doppler, is 48.50mmHg. The pulmonic valve was not well visualized. The aortic root size is normal. Normal inferior vena cava with normal inspiratory collapse consistent with estimated right atrial pre ssure of 5 mmHg. The inferior vena cava is mildly dilated. There is no pericardial effusion. CONCLUSIONS -------- 1. Sinus rhythm. 2. This was a technically adequate study. 3. The left ventricular size is normal. 4. There is mild concentric left ventricular hypertrophy. 5. Overall left ventricular systolic function is normal with, an EF between 60 - 65 %. 6. The right ventricle is mild to moderately enlarged. 7. Normal LA size by volume 22+/-6 ml/m2. 8. The right atrium is normal in size. 9. Interatrial and interventricular septum intact. 10. There is mild aortic valve sclerosis. 11. There is mild aortic stenosis present. 12. Peak/mean gradient across the Aortic Valve is 22.80mmHg / 8.73mmHg. 13. The mitral valve leaflets are mildly thickened. 14. Mild mitral annular calcification present. 15. The peak and mean MV gradients are 17.31mmHg 7.62mmHg as measured by doppler. 16. Mild tricuspid regurgitation present. 17. There is moderate pulmonary hypertension. 18. The right ventricular systolic pressure, as measured by Doppler, is 48.50mmHg. 19. The pulmonic valve was not well visualized. 20. The aortic root size is normal. 21. Normal inferior vena cava with normal inspiratory collapse consistent with estimated right atrial pressure of 5 mmHg. 22. The inferior vena cava is mildly dilated. 23. There is no pericardial effusion. 24.consider sharita for optimal evaluation of mityral valve if cli nically indicated [employer] ARCHITECT: Lara Fernandes RDCS
[2018-08-29] MEDS: HEPARIN SODIUM,PORCINE 5,000 UNIT/ML 1 ML VIAL SQ SCH ×2 (12:06→18:33)
--- NOTE | 2018-08-29 14:54 | P.CONS ---
History of Present Illness - Reason for Consult Consult date: 08/29/18 Cirrhosis Requesting physician: Ashu Johnson - Chief Complaint Shortness of breath - History of Present Illness 68-year-old female with a known history of nonalcoholic liver cirrhosis transparent list 5 years follows up regularly with [facility] hepatobiliary specialists. Admitted with shortness of breath pneumonia. Consult requested for cirrhosis. Hemoglobin 7.9. White count 8.5. Platelets 69,000. INR 1.5. Total bilirubin 3.2. AST 47. ALT 33. AP 124. Patient's last follow-up with director search was 2 months ago. Reports no concerns regarding her cirrhosis diagnosis. Denies abdominal pain. No hematemesis hematochezia or melena. EGD a few months ago no evidence of varices or banding but has a history of previous esophageal varices. Review of Systems Constitutional: Denies fever, chills, sweats, weight gain, or loss. HEENT: Negative for migraines, blurred vision or loss, earaches, drainage, tinnitus, oral mucosal lesions, dysphagia, or odynophagia. CARDIAC: Negative for chest pain, arrhythmias, or palpitation. RESPIRATORY: Admitted with shortness of breath, denies hemoptysis, cough, or sputum production. GI: See HPI for pertinent findings. : Negative for hematuria, urgency, frequency, polyuria, or dysuria. GYNc: Denies possibility of . Negative vaginal discharge. MUSCULOSKELETAL: Negative for muscle aches, swelling, arthritis, and arthralgias. NEUROLOGIC: Negative for stroke or TIA. ENDOCRINE: Negative for thyroid problems. SKIN: Negative for rash or itching. PSYCHIATRIC: Negative history for depression and anxiety Past Medical History Past Medical History: GI Bleed, Liver Disease Additional Past Medical History / Comment(s): NON ALCOHOL CIRRHOSIS OF LIVER - CURRENTLY ON LIVER TRANSPLANT LIST. 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 [facility] History of Any Multi-Drug Resistant Organisms: None Reported Past Surgical History: Bowel Resection, Hernia Repair, Hysterectomy, Joint Replacement, Orthopedic Surgery Additional Past Surgical History / Comment(s): x4 laproscopy's Past Anesthesia/Blood Transfusion Reactions: No Reported Reaction Past Psychological History: No Psychological Hx Reported Smoking Status: Never smoker Past Alcohol Use History: None Reported Past Drug Use History: None Reported Medications and Allergies Home Medications Medication Instructions Recorded Confirmed Type Furosemide [Lasix] 20 mg PO DAILY 07/04/16 08/27/18 History Lactulose 20 gm PO TID 07/04/16 08/27/18 History Ondansetron [Zofran] 4 mg PO Q8HR PRN 07/04/16 08/27/18 History Propranolol [Inderal] 20 mg PO BID 07/04/16 08/27/18 History Rifaximin [Xifaxan] 550 mg PO BID 07/04/16 08/27/18 History Oxybutynin Chloride 5 mg PO DAILY 08/27/18 08/27/18 History Allergies Allergy/AdvReac Type Severity Reaction Status Date / Time No Known Allergies Allergy Verified 08/27/18 15:23 Physical Exam Vitals: Vital Signs Temp Pulse Pulse Resp BP BP Pulse Ox 08/29/18 12:04 80 08/29/18 11:50 78 08/29/18 09:10 77 08/29/18 08:59 76 08/29/18 07:33 97.8 F 72 146/71 98 08/29/18 01:30 98.3 F 80 19 129/73 98 08/28/18 21:15 82 08/28/18 21:04 80 08/28/18 18:55 98.3 F 83 19 118/62 95 08/28/18 17:04 80 08/28/18 16:54 80 08/28/18 14:08 97.5 F L 95 90/50 80/36 98 Intake and Output 08/28/18 08/29/18 08/29/18 22:59 06:59 14:59 Intake Total 640 Balance 640 Intake: Intake, IV Titration 100 Amount Piperacillin-Tazobactam 3 100 .375 gm In Sodium Chloride 0.9% 100 ml @ 25 mls/hr IVPB Q8HR@0400, 1200,2000 [facility] Rx#: [id number] Oral 540 Other: Voiding Method Toilet # Voids 1 General appearance: The patient is alert, oriented, in no acute distress. Jaundice. HET: Head is normocephalic and atraumatic. Pupils are equal and reactive. Oropharynx is clear without lesions. sclera icterus. Neck: Supple without lymphadenopathy. Trachea midline. Heart: S1 S2. Regular rate and rhythm. Lungs: Diminished in bases bilaterally. Abdomen: Soft, nontender, nondistended with bowel sounds. No peritoneal signs. No palpable organomegaly or masses. Extremities: Normal skin color and turgor. No cyanosis, rash, ulceration, clubbing, or edema. Radial and pedal pulses are 2/4 bilaterally. Neurological: No focal deficits. Strength and sensation are grossly intact. Results CBC & Chem 7: 08/30/18 07:13 08/30/18 07:13 Labs: Abnormal Lab Results - Last 24 Hours (Table) 08/28/18 08/28/18 08/29/18 Range/Units 11:50 11:50 07:47 RBC 2.65 L (3.80-5.40) m/uL Hgb 7.9 L (11.4-16.0) gm/dL Hct 26.3 L (34.0-46.0) % MCHC 29.8 L (31.0-37.0) g/dL RDW 21.1 H (11.5-15.5) % Plt Count 69 L (150-450) k/uL Sodium (137-145) mmol/L Chloride (98-107) mmol/L Carbon Dioxide (22-30) mmol/L BUN (7-17) mg/dL Creatinine (0.52-1.04) mg/dL Glucose (74-99) mg/dL Calcium (8.4-10.2) mg/dL Iron 29 L (50-170) ug/dL Iron Saturation 9.63 L (12.00-45.00) Vitamin B12 1375.0 H (200.0-944.0) pg/mL RBC Folate 1,610 H (280 - 791) ng/mL 08/29/18 Range/Units 07:47 RBC (3.80-5.40) m/uL Hgb (11.4-16.0) gm/dL Hct (34.0-46.0) % MCHC (31.0-37.0) g/dL RDW (11.5-15.5) % Plt Count (150-450) k/uL Sodium 136 L (137-145) mmol/L Chloride 111 H (98-107) mmol/L Carbon Dioxide 19 L (22-30) mmol/L BUN 50 H (7-17) mg/dL Creatinine 1.26 H (0.52-1.04) mg/dL Glucose 145 H (74-99) mg/dL Calcium 7.4 L (8.4-10.2) mg/dL Iron (50-170) ug/dL Iron Saturation (12.00-45.00) Vitamin B12 (200.0-944.0) pg/mL RBC Folate (280 - 791) ng/mL Microbiology - Last 24 Hours (Table) 08/27/18 17:44 Blood Culture - Preliminary Blood No Growth after 24 hours Assessment and Plan (1) Cirrhosis of liver Narrative/Plan: 68 -year-old female admitted with acute pneumonia with underlying history of nonalcoholic cirrhosis presently being evaluated on a routine basis at [facility] on transplant list Current Visit: Yes Status: Acute Code(s): K74.60 - UNSPECIFIED CIRRHOSIS OF LIVER SNOMED Code(s): 79113783 (2) Thrombocytopenia Current Visit: Yes Status: Chronic Priority: Medium Code(s): D69.6 - THROMBOCYTOPENIA, UNSPECIFIED SNOMED Code(s): 948892483 (3) Pneumonia Current Visit: Yes Status: Acute Code(s): J18.9 - PNEUMONIA, UNSPECIFIED ORGANISM SNOMED Code(s): 942159392 (4) Coagulopathy Current Visit: Yes Status: Chronic Code(s): D68.9 - COAGULATION DEFECT, UNSPECIFIED SNOMED Code(s): 96386689 Plan: 1. Continue symptomatic and supportive measures. LFTs reviewed stable. Continue to follow up with hepatobiliary specialist [facility] as advised. Thank you for this kind referral and the opportunity to participate in the care of your patient. This consultation was discussed with Dr. Dodd. The impression and plan of care have been directed as dictated.
[2018-08-29] MEDS: BENZONATATE 100 MG CAP PO SCH ×2 (18:03→22:13)
--- NOTE | 2018-08-29 18:05 | P.PN ---
Subjective Progress Note Date: 08/29/18 Principal diagnosis: Left Lower lobe pneumonia This is 68-year-old white female patient with past medical history of nonalcoholic liver cirrhosis and is on the liver transplant list, lifetime nonsmoker, chronic anemia, history of esophageal variceal banding, who presented to the hospital on 08/27/2018 with complaints of worsening shortness of breath and fever. Patient states she has been chronically short of breath for a period of over a year, but her dyspnea has become progressively worse 's 2 AM on 08/27/2018, she developed a dry cough and a fever, she was wheezing. Patient did have a one episode of nonbloody nonbilious emesis on the way to the hospital, no abdominal pain or diarrhea, she denied any sick contacts. D-dimer was elevated, and CT angios was completed and revealed no acute pulmonary embolism however it did show atypical mass in the left lung, and patient reported that she had a fever from living in [place] and that she was aware of this mass in her lung. He was treated with antipyretics, was given some supplemental oxygen, breathing treatments and was discharged home with instructions to follow up with primary care provider. However after arriving at home her symptoms became worse, and she returned for reevaluation. Lab work showed a low blood cell, 12.5, hemoglobin is 7.8, INR is 1.5, sodium is 139, potassium is 4.5, chloride is 111, CO2 is 23, B1 is 22, creatinine is 1.15, plasma lactic acid was elevated at 2.9, and actually subsequently increased to 4.2 despite IV hydration, troponin was negative 1, proBNP was 886. Patient was started on IV antibiotics in the form of Zithromax and Rocephin, and later Rocephin was switched to Zosyn, IV steroids, she was fluid resuscitated in the emergency department, and she is having IV fluids infusing at a rate of 100 ML per hour. Patient has been chronically anemic, and apparently she was told to take iron supplements which she has not been able to tolerate. I'll chest x-ray today showed left lower lobe consolidation suspicious for pneumonic infiltrate or mass. Chest x-ray from 05/21/2018 did not show the left lower consolidation seen on present exams, making it more likely to be related to underlying pneumonia, then a pulmonary mass. On 08/29/2018 patient seen in follow-up medical surgical floor. She is awake and alert, in no acute distress, lung sounds reveal a few scattered wheezes, and left lower lobe crackles, he is afebrile, room air pulse ox is 98%, no fever or chills, with culture showed no growth, urine culture has been uncollected. Dry nonproductive cough, today's labs have been reviewed, showing downtrend and the patient's leukocytosis, white blood cell count is 8.5, hemoglobin is 7.9, serum sodium is 136, potassium is 5.1, chloride is 111, CO2 is 19, BUN is 50, creatinine is 1.26. Patient is tolerating oral intake. No chest pain, hemoptysis. Cranial better coverage is with azithromycin, and Zosyn. Patient is on IV Solu-Medrol, and nebulized bronchodilators, and she is feeling better today. Objective - Vital Signs Vital signs: Vital Signs Temp 98.1 F 08/29/18 13:31 Pulse 74 08/29/18 16:37 Resp 19 08/29/18 01:30 BP 127/71 08/29/18 13:31 Pulse Ox 97 08/29/18 13:31 Intake & Output 08/28/18 08/29/18 08/29/18 18:59 06:59 18:59 Intake Total 640 Balance 640 Intake: Intake, IV Titration 100 Amount Piperacillin-Tazobactam 3 100 .375 gm In Sodium Chloride 0.9% 100 ml @ 25 mls/hr IVPB Q8HR@0400, 1200,2000 [facility] Rx#: [id number] Oral 540 Other: Voiding Method Toilet # Voids 2 1 - Exam GENERAL EXAM: Alert, pleasant, obese 68-year-old white female comfortable in no apparent distress. HEAD: Normocephalic/atraumatic. EYES: Normal reaction of pupils, equal size. Conjunctiva pink, sclera white. NOSE: Clear with pink turbinates. THROAT: No erythema or exudates. NECK: No masses, no JVD, no thyroid enlargement, no adenopathy. CHEST: No chest wall deformity. Symmetrical expansion. LUNGS: Equal air entry with coarse inspiratory crackles over left lower lobe CVS: Regular rate and rhythm, normal S1 and S2, no gallops, no murmurs, no rubs ABDOMEN: Soft, nontender. No hepatosplenomegaly, normal bowel sounds, no guarding or rigidity. EXTREMITIES: No clubbing, no edema, no cyanosis, 2+ pulses and upper and lower extremities. MUSCULOSKELETAL: Muscle strength and tone normal. SPINE: No scoliosis or deformity SKIN: No rashes CENTRAL NERVOUS SYSTEM: Alert and oriented -3. No focal deficits, tone is normal in all 4 extremities. PSYCHIATRIC: Alert and oriented -3. Appropriate affect. Intact judgment and insight. - Labs CBC & Chem 7: 08/29/18 07:47 08/29/18 07:47 Labs: Abnormal Lab Results - Last 24 Hours (Table) 08/28/18 08/28/18 08/29/18 Range/Units 11:50 11:50 07:47 RBC 2.65 L (3.80-5.40) m/uL Hgb 7.9 L (11.4-16.0) gm/dL Hct 26.3 L (34.0-46.0) % MCHC 29.8 L (31.0-37.0) g/dL RDW 21.1 H (11.5-15.5) % Plt Count 69 L (150-450) k/uL Sodium (137-145) mmol/L Chloride (98-107) mmol/L Carbon Dioxide (22-30) mmol/L BUN (7-17) mg/dL Creatinine (0.52-1.04) mg/dL Glucose (74-99) mg/dL Calcium (8.4-10.2) mg/dL Iron 29 L (50-170) ug/dL Iron Saturation 9.63 L (12.00-45.00) Vitamin B12 1375.0 H (200.0-944.0) pg/mL RBC Folate 1,610 H (280 - 791) ng/mL 08/29/18 Range/Units 07:47 RBC (3.80-5.40) m/uL Hgb (11.4-16.0) gm/dL Hct (34.0-46.0) % MCHC (31.0-37.0) g/dL RDW (11.5-15.5) % Plt Count (150-450) k/uL Sodium 136 L (137-145) mmol/L Chloride 111 H (98-107) mmol/L Carbon Dioxide 19 L (22-30) mmol/L BUN 50 H (7-17) mg/dL Creatinine 1.26 H (0.52-1.04) mg/dL Glucose 145 H (74-99) mg/dL Calcium 7.4 L (8.4-10.2) mg/dL Iron (50-170) ug/dL Iron Saturation (12.00-45.00) Vitamin B12 (200.0-944.0) pg/mL RBC Folate (280 - 791) ng/mL Microbiology - Last 24 Hours (Table) 08/28/18 13:09 Blood Culture - Preliminary Blood No Growth after 24 hours 08/27/18 17:44 Blood Culture - Preliminary Blood No Growth after 24 hours Assessment and Plan Plan: Assessment: #1. Acute hypoxemic respiratory failure secondary to left lower lung pneumonia, community acquired, in the immunocompromised patient. Chest x-ray and CT angios revealed left lower lung consolidation or mass, and previously taken chest x-ray in the May 2018 did not have this finding, making it more likely to be acute and more likely to be related to underlying pneumonia rather than a pulmonary malignancy. #2. Lactic acidemia, without signs of hypoperfusion, and the patient with chronic liver disease #3. Chronic nonalcoholic liver cirrhosis patient is on the transplant list #4. Chronic anemia #5. Last time nonsmoker #6. Obesity #7. History of esophageal variceal banding #8. History of bowel resection, hernia repair Plan: Current medical treatment, current antibiotics, IV Solu-Medrol, nebulized bronchodilators, sputum culture has not been collected, and patient is not bringing up much sputum. She has been afebrile, we'll obtain a follow-up chest x-ray tomorrow morning, and if there is clinical and radiographic improvement may consider discharge home in the next 24 hours. I performed a history & physical examination of the patient and discussed their management with my nurse practitioner, Deisi Martinez. I reviewed the nurse practitioner's note and agree with the documented findings and plan of care. Lung sounds are positive for diminished breath sounds at the bases, and left lower lobe crackles. The findings and the impression was discussed with the patient. I attest to the documentation by the nurse practitioner. Time with Patient: Less than 30
[2018-08-29] MEDS: SODIUM CHLORIDE 0.9% 1,000 ML IV SCH ×2 (18:32→23:20)
--- NOTE | 2018-08-29 18:47 | PN ---
PROGRESS NOTE DATE OF SERVICE: 08/29/2018 This 68-year-old woman with a past medical history of acute left lower pneumonia had possible features of sepsis. The patient also had elevated plasma lactic acid. Multiple consultants are following the patient closely. The patient also has a history of chronic liver disease, on transplant list. Gastroenterology is also following the patient closely. Past medical history reviewed. A 2D echo with Doppler with echo was done also during the current hospitalization. Ejection fraction was found to be 60% to 65%. Minimal valvular abnormalities. REVIEW OF SYSTEMS: CARDIOVASCULAR SYSTEM: No angina, palpitations. RESPIRATORY SYSTEM: As mentioned earlier. GI: No nausea, vomiting. : No dysuria or retention. NERVOUS SYSTEM: No numbness, weakness. CURRENT MEDICATIONS: Reviewed. They include: 1. [place] 5 mg q.6 p.r.n. 2. DuoNeb q.i.d. and p.r.n. 3. Xanax 0.25 t.i.d. 4. Zithromax 500 mg p.o. daily. 5. Tessalon Perles 100 mg t.i.d. 6. Iron gluconate 125 mg daily for 3 days. 7. Lasix 20 mg p.o. daily. 8. Heparin 5000 units subcutaneously b.i.d. 9. Cephulac 20 mg daily. 10.Melatonin. 11.Solu-Medrol 60 IV q.6. 12.Ditropan. 13.Zosyn 3.375 IV q.6. 14.Inderal. 15.Xifaxan. 16.Tigan. PHYSICAL EXAMINATION: Patient is alert, oriented x3. Pulse 82, blood pressure 127/71, respiration 20, temperature 98.1, pulse ox 97% HEENT: Conjunctivae normal. Oral mucosa moist. NECK: No jugular venous distention. No carotid bruit. No lymph node enlargement. CARDIOVASCULAR SYSTEM: S1, S2 muffled. RESPIRATORY SYSTEM: Breath sounds diminished at the bases. A few scattered rhonchi and crackles. Expiratory wheezing also heard. ABDOMEN: Soft, non-tender. LEGS: No edema. No swelling. NERVOUS SYSTEM: No focal deficit. LABS: WBC 8.5, hemoglobin 7.9, platelets 69. Sodium 136, creatinine 1.26. Glucose is 145. Vitamin B12 noted. Serum cortisol is 21. ASSESSMENT: 1. Acute left lower lobe pneumonia, possibly gram-negative, with severe sepsis, septic shock and hypotension. 2. Elevated plasma lactic acid. 3. Anemia, macrocytic, possibly secondary to chronic liver disease. 4. Non-alcoholic cirrhosis of the liver, on transplant list. 5. Increased creatinine with mild acute renal failure, possibly prerenal, multifactorial. 6. Hypoalbuminemia. 7. Increased white count. 8. Thrombocytopenia from liver disease. 9. History of gastrointestinal bleed. 10.History of bowel resection. 11.History of hysterectomy. 12.History of degenerative joint disease. 13.FULL CODE. RECOMMENDATIONS AND DISCUSSION: In this 68-year-old woman who presented with multiple complex medical problems, we will monitor the patient closely, continue the current management, continue symptomatic treatment, continue the broad-spectrum IV antibiotics. Closely follow with Pulmonary and Infectious Disease. Follow the cultures. Two-D echo has been noted. The patient had a CT scan of the chest which showed masslike consolidation. Recommend repeat CT scan in a few weeks' time to ensure stability. We will continue to monitor. Further recommendations to follow. MMODL / IJN: [id number] / MTDD
--- NOTE | 2018-08-29 20:02 | PN ---
PROGRESS NOTE DATE OF SERVICE: 08/29/2018. REASON FOR FOLLOWUP: Pneumonia. INTERVAL HISTORY: The patient is currently afebrile. The patient breathing has slightly improved. The patient continues to have a cough which is dry in nature. No chest pain. No nausea, no vomiting. No abdominal pain or any diarrhea. PHYSICAL EXAMINATION: Blood pressure is 127/71 with a pulse of 82, temperature 98.1. She is 97% on room air. General description is an elderly female up in the bed in no distress. Respiratory system: Unlabored breathing, decreased breath sounds in the base, with no wheeze. Heart S1, S2. Regular rate and rhythm. ABDOMEN: Soft, no tenderness. LAB: Cultures are currently pending. DIAGNOSTIC IMPRESSION AND PLAN: Patient admitted in the hospital with fever with evidence of left lower lobe pneumonia, concern for possible community acquired versus gram negative. The patient is currently covered with Zosyn and Zithromax to continue while waiting for the culture to finalize. Continue supportive care. MMODL / IJN: [id number] /
[2018-08-29] MEDS: MELATONIN 3 MG TABLET PO SCH (22:13)
[2018-08-30] MEDS: PIPERACILLIN-TAZOBACTAM 3.375 GM in SODIUM CHLORIDE 0.9% 100 ML IVPB SCH ×2 (04:04→11:49)
[2018-08-30] MEDS: methylPREDNISolone SOD SUCCI 125 MG/2 ML VIAL IV SCH ×2 (05:12→11:48)
[2018-08-30] MEDS: IPRATROPIUM-ALBUTEROL 3 ML NEB INHALATION SCH ×3 (07:23→16:39)
[2018-08-30 08:00] LABS: Calcium 7.5 mg/dL (8.4-10.2); Potassium 5.1 mmol/L (3.5-5.1)
[2018-08-30] MEDS: SODIUM FERRIC GLUCONAT-SUCROSE 125 MG in SODIUM CHLORIDE 0.9% 100 ML IVPB SCH (08:50)
[2018-08-30] MEDS: RIFAXIMIN 550 MG TABLET PO SCH (08:58)
[2018-08-30] MEDS: FUROSEMIDE 20 MG TAB PO SCH (08:58)
[2018-08-30] MEDS: OXYBUTYNIN CHLORIDE 5 MG TAB PO SCH (08:58)
[2018-08-30] MEDS: PROPRANOLOL 20 MG TAB PO SCH (08:58)
[2018-08-30] MEDS: BENZONATATE 100 MG CAP PO SCH ×2 (08:58→17:42)
[2018-08-30] MEDS: AZITHROMYCIN 500 MG TAB PO SCH (08:58)
[2018-08-30] MEDS: SODIUM CHLORIDE 0.9% 1,000 ML IV SCH ×2 (08:59→17:37)
[2018-08-30] MEDS: HEPARIN SODIUM,PORCINE 5,000 UNIT/ML 1 ML VIAL SQ SCH (08:59)
[2018-08-30 09:09] LABS: Anisocytosis Moderate; HCT 27.2 % (34.0-46.0); HGB 7.8 gm/dL (11.4-16.0); Hypochromasia Marked; MCHC 28.7 g/dL (31.0-37.0); MCV 97.7 fL (80.0-100.0); Macrocytosis Moderate; Mean Platelet Volume 10.9; RBC 2.79 m/uL (3.80-5.40); RDW 21.8 % (11.5-15.5); WBC 7.3 k/uL (3.8-10.6)
[2018-08-30 09:14] LABS: Platelet Count 84 k/uL (150-450)
--- NOTE | 2018-08-30 09:19 | XR ---
EXAMINATION TYPE: XR chest 2V DATE OF EXAM: 08/30/2018 COMPARISON: 08/28/2018 INDICATION: Pneumonia TECHNIQUE: Frontal and lateral views of the chest are obtained. FINDINGS: The heart size is normal. The pulmonary vasculature is normal. There is a posterior infiltrate which may be in the left base. This is slightly less distinct than th e comparison. Continued follow-up to clearing is recommended.. IMPRESSION: 1. Posterior opacity over the spine can be compatible with resolving pneumonia. This should be follow ed to complete clearing. Underlying mass is not excluded.
[2018-08-30 10:05] LABS: Band Neutrophils % 5 %; Lymphocytes # (M) 1.02 k/uL (1.0-4.8); Monocytes # (M) 0.15 k/uL (0-1.0); Neutrophils % (M) 79 %; Nucleated Red Blood Cells 0 /100 WBC (0-0); Total Cells Counted 100
[2018-08-30 10:06] LABS: Polychromasia Present
[2018-08-30 10:07] LABS: Poikilocytosis (M) Present
[2018-08-30] MEDS: HYDROcodone/APAP 5-325MG 1 EACH TAB PO PRN (11:49)
[2018-08-30 13:02] VITALS: BP 133/72; RESP 18; TEMP 98
--- NOTE | 2018-08-30 14:54 | PN ---
PROGRESS NOTE DATE OF SERVICE: 08/30/2018 REASON FOR FOLLOWUP: Pneumonia. INTERVAL HISTORY: The patient is afebrile. Patient breathing has improved. Still has some shortness of breath with exertion, but not at rest. Did have a cough which is dry in nature. Some lower repeat chest pain from the coughing, but no worsening, no nausea, no vomiting. No abdominal pain, no diarrhea. PHYSICAL EXAMINATION: Blood pressure is 133/72 with a pulse of 81, temperature of 98. She is 97% on room air. General description is an elderly female, lying in bed in no distress. RESPIRATORY SYSTEM: Unlabored breathing, clear to auscultation anteriorly. HEART: S1, S2. Regular rate and rhythm. ABDOMEN: Soft, no tenderness. LABS: Hemoglobin is 7.8, white count of 7.3 with a BUN of 39, creatinine 0.90. Blood culture has been negative. Sputum not collected. Chest x-ray this morning did show overall improvement in left lower lobe pneumonia. DIAGNOSTIC IMPRESSION AND PLAN: Patient admitted to the hospital with a fever, cough and shortness of breath with evidence of left lower lobe pneumonia, possible community-acquired, underlying gram- negative not excluded. Patient did show overall improvement on Zosyn, Zithromax. Plan is to continue with the antibiotic while inpatient, hopefully therapy with oral antibiotic on discharge. Continue supportive care. MMODL / IJN: [id number] /
--- NOTE | 2018-08-30 15:35 | P.PN ---
Subjective Progress Note Date: 08/30/18 On 08/30/2018, the patient is feeling better and she is less short of breath. The follow-up chest x-ray was done this morning that showed a improvement in the left lower lobe pulmonary infiltrates/consolidation. This is the posterior segment consolidation and it is showing some improvement today's chest x-ray. Further follow-up will be needed on outpatient basis to assure for recovery. The patient has no fever. No significant cough or sputum production. The white cell count is at 7.3. Hemoglobin is low at 7.8 and the plated is at 84,000. The blood cultures are negative and the patient is ambulating without any major difficulties. Pulse ox on room air is 97%. Objective - Vital Signs Vital signs: Vital Signs Temp 98.0 F 08/30/18 13:01 Pulse 81 08/30/18 13:01 Resp 18 08/30/18 13:01 BP 133/72 08/30/18 13:01 Pulse Ox 97 08/30/18 13:01 Intake & Output 08/29/18 08/30/18 08/30/18 18:59 06:59 18:59 Intake Total 1050 100 Balance 1050 100 Intake: Intake, IV Titration 1050 100 Amount Piperacillin-Tazobactam 3 100 .375 gm In Sodium Chloride 0.9% 100 ml @ 25 mls/hr IVPB Q8HR@0400, 1200,2000 [facility] Rx#: [id number] Sodium Chloride 0.9% 1, 950 000 ml @ 100 mls/hr IV . Q10H [facility] Rx#:[id number] Sodium Ferric Gluconat- 100 Sucrose 125 mg In Sodium Chloride 0.9% 100 ml @ 100 mls/hr IVPB DAILY [facility] Rx#:[id number] Other: # Voids 3 2 - Exam GENERAL EXAM: Alert, pleasant, obese 68-year-old white female comfortable in no apparent distress. HEAD: Normocephalic/atraumatic. EYES: Normal reaction of pupils, equal size. Conjunctiva pink, sclera white. NOSE: Clear with pink turbinates. THROAT: No erythema or exudates. NECK: No masses, no JVD, no thyroid enlargement, no adenopathy. CHEST: No chest wall deformity. Symmetrical expansion. LUNGS: Equal air entry with coarse inspiratory crackles over left lower lobe CVS: Regular rate and rhythm, normal S1 and S2, no gallops, no murmurs, no rubs ABDOMEN: Soft, nontender. No hepatosplenomegaly, normal bowel sounds, no guarding or rigidity. EXTREMITIES: No clubbing, no edema, no cyanosis, 2+ pulses and upper and lower extremities. MUSCULOSKELETAL: Muscle strength and tone normal. SPINE: No scoliosis or deformity SKIN: No rashes CENTRAL NERVOUS SYSTEM: Alert and oriented -3. No focal deficits, tone is normal in all 4 extremities. PSYCHIATRIC: Alert and oriented -3. Appropriate affect. Intact judgment and insight. - Labs CBC & Chem 7: 08/30/18 07:13 08/30/18 07:13 Labs: Abnormal Lab Results - Last 24 Hours (Table) 08/30/18 08/30/18 Range/Units 07:13 07:13 RBC 2.79 L (3.80-5.40) m/uL Hgb 7.8 L (11.4-16.0) gm/dL Hct 27.2 L (34.0-46.0) % MCHC 28.7 L (31.0-37.0) g/dL RDW 21.8 H (11.5-15.5) % Plt Count 84 L (150-450) k/uL Chloride 114 H (98-107) mmol/L Carbon Dioxide 19 L (22-30) mmol/L BUN 39 H (7-17) mg/dL Glucose 168 H (74-99) mg/dL Calcium 7.5 L (8.4-10.2) mg/dL Microbiology - Last 24 Hours (Table) 08/27/18 17:44 Blood Culture - Preliminary Blood No Growth after 48 hours 08/28/18 13:09 Blood Culture - Preliminary Blood No Growth after 24 hours Assessment and Plan Plan: #1. Acute hypoxemic respiratory failure secondary to left lower lung pneumonia, community acquired, in the immunocompromised patient. Clinically the patient is doing much better. The patient is currently on room air with a pulse ox of 97%. The chest x-ray shows improvement in left lower lobe pulmonary consolidation #2. Lactic acidemia, without signs of hypoperfusion, and the patient with chronic liver disease #3. Chronic nonalcoholic liver cirrhosis patient is on the transplant list #4. Chronic anemia #5. Last time nonsmoker #6. Obesity #7. History of esophageal variceal banding #8. History of bowel resection, hernia repair JASS The patient is currently on a combination of Zosyn and Zithromax. We'll switch this patient oral antibiotics. She can be discharged home on a prednisone burst taper and antibiotic course per IDs recommendation and the patient can see me back in follow-up in a week's time in the office for repeat chest x-ray to make sure there is complete resolution of this left lower lobe pulmonary infiltrate.
[2018-08-30 16:49] VITALS: PULSE 76
--- NOTE | 2018-08-30 17:59 | P.DS ---
Providers Date of admission: 08/27/18 17:02 Expected date of discharge: 08/30/18 Attending physician: Baltazar Whiting MD Consults: 08/27/18 17:02 Consult Physician Routine Consulting Provider: Juliana Mojica Consult Reason/Comments: pneumonia vs lung mass, dyspnea Do you want consulting provider notified?: Yes 08/27/18 17:03 Consult Physician Routine Consulting Provider: Erasto Curtis Consult Reason/Comments: Anemia and thrombocytopenia Do you want consulting provider notified?: Yes 08/28/18 12:36 Consult Physician Urgent Consulting Provider: David Joseph Consult Reason/Comments: infection, elevated lactic acid Do you want consulting provider notified?: Yes Primary care physician: Deidre Cartagena Hospital Course: discharge diagnosis - Left lower lobe pneumonia gram-negative - Sepsis with septic shock improved - Anemia - On transplant list for [facility] - History of GI bleed - History of bowel resection Hospital course 68-year-old female with a history of [facility] on transplant list comes into the ER for shortness of breath. She was diagnosed with pneumonia and features of sepsis with septic shock. She had elevated lactic acid levels. Initially. She had pulmonology and ID consulted. She slowly started to improve. On 08/30/2018 On exam, alert and oriented x3. HEENT: Conjunctivae normal. eyes normal. NECK: No JVD. No thyroid enlargement. No LNs CARDIOVASCULAR: S1, S2 muffled. No murmur RESPIRATION: Breath sounds diminished in the bases. No rhonchi or crackles. No bronchial breathing. ABDOMEN: Soft, nontender . No guarding. no masses palpable. No ascites, No hepatosplenomegaly.Bowel sounds heard. LEGS: No edema. no swelling NERVOUS SYSTEM: Cranial N 2-12 grossly normal. Moves all 4 limbs. No focal deficits. No sensory deficit. No signs of cerebellar dysfucntion. Skin: no ulcer no rash Joints: No active swelling. No inflammation. Lymphatic system. No LN neck axilla or groin. Patient says that she is still short of breath but she is saturating adequately on ambulation she was 97% without any oxygen. She was cleared by pulmonology and infectious disease to be discharged. She will be on Avelox 400 mg daily for 7 days She will be on tapering dose of steroids Plan - Discharge Summary Discharge Rx Participant: No New Discharge Prescriptions: New Moxifloxacin HCl [Avelox] 400 mg PO DAILY #7 tablet Ipratropium-Albuterol Nebulize [Duoneb 0.5 mg-3 mg/3 ml Soln] 3 ml INHALATION RT-QID ampul.neb HYDROcodone/APAP 5-325MG [[place] 5-325] 1 each PO Q6HR PRN #15 tab PRN Reason: Pain predniSONE 10 mg PO DAILY #40 tab Benzonatate [Tessalon Perles] 100 mg PO TID #30 cap Continue Rifaximin [Xifaxan] 550 mg PO BID Ondansetron [Zofran] 4 mg PO Q8HR PRN PRN Reason: Nausea Lactulose 20 gm PO TID Propranolol [Inderal] 20 mg PO BID Furosemide [Lasix] 20 mg PO DAILY Oxybutynin Chloride 5 mg PO DAILY Discharge Medication List Furosemide [Lasix] 20 mg PO DAILY 07/04/16 [History] Lactulose 20 gm PO TID 07/04/16 [History] Ondansetron [Zofran] 4 mg PO Q8HR PRN 07/04/16 [History] Propranolol [Inderal] 20 mg PO BID 07/04/16 [History] Rifaximin [Xifaxan] 550 mg PO BID 07/04/16 [History] Oxybutynin Chloride 5 mg PO DAILY 08/27/18 [History] Benzonatate [Tessalon Perles] 100 mg PO TID #30 cap 08/30/18 [Rx] HYDROcodone/APAP 5-325MG [[place] 5-325] 1 each PO Q6HR PRN #15 tab 08/30/18 [Rx] Ipratropium-Albuterol Nebulize [Duoneb 0.5 mg-3 mg/3 ml Soln] 3 ml INHALATION RT-QID ampul.neb 08/30/18 [Rx] Moxifloxacin HCl [Avelox] 400 mg PO DAILY #7 tablet 08/30/18 [Rx] predniSONE 10 mg PO DAILY #40 tab 08/30/18 [Rx] Follow up Appointment(s)/Referral(s): None,Stated [REFERRING] - 1-2 days Discharge Disposition: HOME WITH HOME HEALTH SERVICES
[2018-08-31] MEDS ORDERED: predniSONE 10 MG TAB PO SCH (09:00)
== END 2018-08-30 18:45 | disposition home health service (06) | DRG 871 ==
LOC: EC 13:38 → 4MS4W 17:02 → 4SSUR 17:37
PROVIDERS: ADMIT Internal Medicine; ATTEND Internal Medicine
DX: A41.9 Sepsis, unspecified organism (principal); J15.6 Pneumonia due to other Gram-negative bacteria; J96.01 Acute respiratory failure with hypoxia; R65.21 Severe sepsis with septic shock; D68.9 Coagulation defect, unspecified; E87.2 Acidosis; N17.9 Acute kidney failure, unspecified; D63.8 Anemia in other chronic diseases classified elsewhere; D53.9 Nutritional anemia, unspecified; D69.59 Other secondary thrombocytopenia; E66.9 Obesity, unspecified; Z68.32 Body mass index [BMI] 32.0-32.9, adult; K75.81 Nonalcoholic steatohepatitis (NASH); K74.69 Other cirrhosis of liver; E88.09 Other disorders of plasma-protein metabolism, not elsewhere classified; Z76.82 Awaiting organ transplant status; Z79.899 Other long term (current) drug therapy; Z90.49 Acquired absence of other specified parts of digestive tract; Z90.710 Acquired absence of both cervix and uterus; Z79.01 Long term (current) use of anticoagulants; Z79.891 Long term (current) use of opiate analgesic
CPT/HCPCS: 36415; 71046; 71275; 80048; 80053; 81001; 82533; 82607; 82728; 82747; 83540; 83550; 83605; 83735; 83880; 84484; 85025; 85027; 85379; 85610; 85730; 87040; 87077; 87086; 87186; 87502; 93005; 93306; 94640; 96361; 96365; 96366; 96367; 96375; 96376; 99285; 99291

== ENCOUNTER 2018-09-01 09:45 | Inpatient (IN) | payer MEDICARE, BC ==
[2018-09-01] MEDS ORDERED: IPRATROPIUM-ALBUTEROL 3 ML NEB INHALATION STA (10:36)
--- NOTE | 2018-09-01 10:40 | ED ---
General Adult HPI - General Chief complaint: Shortness of Breath Stated complaint: SOB Time Seen by Provider: 09/01/18 09:54 Source: patient, RN notes reviewed Mode of arrival: wheelchair Limitations: no limitations - History of Present Illness Initial comments: Patient is a pleasant 68-year-old female presenting to the emergency department with difficulty in breathing. Patient was in the hospital and discharged just 2 days ago with diagnosis of pneumonia and sepsis. Patient states dyspnea continues and seems to be somewhat worsening. Dyspnea especially worsens with exertion. Patient is only able to walk around 10 feet. Patient has had some d yspnea over the past one year however not as severe as this. Patient has never been diagnosed with any sort of lung disease or COPD or asthma. 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 Patient is on the transplant list for this. Patient does have cough that is dry nonproductive. No fevers. Patient does have some generalized edema that is somewhat chronic. - Related Data Home Medications Medication Instructions Recorded Confirmed Furosemide [Lasix] 20 mg PO DAILY 07/04/16 09/01/18 Lactulose 20 gm PO TID 07/04/16 09/01/18 Ondansetron [Zofran] 4 mg PO Q8HR PRN 07/04/16 09/01/18 Propranolol [Inderal] 20 mg PO BID 07/04/16 09/01/18 Rifaximin [Xifaxan] 550 mg PO BID 07/04/16 09/01/18 Oxybutynin Chloride 5 mg PO DAILY 08/27/18 09/01/18 predniSONE See Taper PO 09/01/18 Previous Rx's Medication Instructions Recorded Benzonatate [Tessalon Perles] 100 mg PO TID #30 cap 08/30/18 HYDROcodone/APAP 5-325MG [[place] 1 each PO Q6HR PRN #15 tab 08/30/18 5-325] Ipratropium-Albuterol Nebulize 3 ml INHALATION Q4H PRN #60 neb 08/30/18 [Duoneb 0.5 mg-3 mg/3 ml Soln] Moxifloxacin HCl [Avelox] 400 mg PO DAILY #7 tablet 08/30/18 Allergies Allergy/AdvReac Type Severity Reaction Status Date / Time No Known Allergies Allergy Verified 09/01/18 10:19 Review of Systems ROS Statement: Those systems with pertinent positive or pertinent negative responses have been documented in the HPI. ROS Other: All systems not noted in ROS Statement are negative. Constitutional: Denies: fever Eyes: Denies: eye pain ENT: Denies: ear pain Respiratory: Reports: cough, dyspnea Cardiovascular: Denies: chest pain Endocrine: Reports: fatigue Gastrointestinal: Denies: abdominal pain Genitourinary: Denies: dysuria Musculoskeletal: Denies: back pain Skin: Denies: rash Neurological: Denies: weakness Past Medical History Past Medical History: GI Bleed, Liver Disease Additional Past Medical History / Comment(s): NON ALCOHOL CIRRHOSIS OF LIVER - CURRENTLY ON LIVER TRANSPLANT LIST. 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 [facility] History of Any Multi-Drug Resistant Organisms: None Reported Past Surgical History: Bowel Resection, Hernia Repair, Hysterectomy, Joint Replacement, Orthopedic Surgery Additional Past Surgical History / Comment(s): x4 laproscopy's Past Anesthesia/Blood Transfusion Reactions: No Reported Reaction Past Psychological History: No Psychological Hx Reported Smoking Status: Never smoker Past Alcohol Use History: None Reported Past Drug Use History: None Reported General Exam Limitations: no limitations General appearance: alert Head exam: Present: atraumatic Eye exam: Present: normal appearance, PERRL ENT exam: Present: normal oropharynx Neck exam: Present: normal inspection Respiratory exam: Present: respiratory distress, wheezes (Mild wheeze), decreased breath sounds Cardiovascular Exam: Present: regular rate, normal rhythm GI/Abdominal exam: Present: soft. Absent: distended, tenderness Extremities exam: Present: pedal edema (+1 bilateral). Absent: calf tenderness Neurological exam: Present: alert Psychiatric exam: Present: normal affect, normal mood Skin exam: Present: normal color Course Vital Signs 09/01/18 09/01/18 09/01/18 09:56 10:58 11:03 Temperature 98.3 F Pulse Rate 66 58 L 55 L Respiratory 24 Rate Blood Pressure 183/87 O2 Sat by Pulse 98 Oximetry - Reevaluation(s) Reevaluation #1: 09/01/18 12:43 There is concern for sepsis diagnosed at 1243. Blood culture and lactic acid have been ordered. IV antibiotics will be ordered. EKG Findings - EKG Comments: EKG Findings:: Normal sinus rhythm 65. AR 156. QRS 88. QT 428. QTC 445. Normal axis. Normal QRS. No acute ST change. Medical Decision Making - Medical Decision Making Patient reevaluated and updated. Case was discussed in detail with Dr. álvarez, who will admit for Dr. haji. - Lab Data Result diagrams: 09/01/18 10:00 09/01/18 10:00 Lab Results 09/01/18 09/01/18 09/01/18 Range/Units 10:00 10:00 10:00 WBC 10.8 H (3.8-10.6) k/uL RBC 2.67 L (3.80-5.40) m/uL Hgb 7.8 L (11.4-16.0) gm/dL Hct 25.9 L (34.0-46.0) % MCV 96.8 (80.0-100.0) fL MCH 29.3 (25.0-35.0) pg MCHC 30.3 L (31.0-37.0) g/dL RDW 22.7 H (11.5-15.5) % Plt Count 79 L (150-450) k/uL Neutrophils % Not Reportable Neutrophils % (Manual) 62 % Band Neutrophils % 8 % Lymphocytes % Not Reportable Lymphocytes % (Manual) 12 % Monocytes % Not Reportable Monocytes % (Manual) 10 % Eosinophils % Not Reportable Basophils % Not Reportable Metamyelocytes % 5 % Myelocytes % 5 % Neutrophils # Not Reportable Neutrophils # (Manual) 7.50 (1.3-7.7) k/uL Lymphocytes # Not Reportable Lymphocytes # (Manual) 1.30 (1.0-4.8) k/uL Monocytes # Not Reportable Monocytes # (Manual) 1.08 H (0-1.0) k/uL Eosinophils # Not Reportable Basophils # Not Reportable Metamyelocytes # (Man) 0.54 H (0) k/uL Myelocytes # (Manual) 0.54 H (0) k/uL Nucleated RBCs 6 H (0-0) /100 WBC Manual Slide Review Performed Polychromasia Present Hypochromasia Marked Poikilocytosis Slight Anisocytosis Moderate Macrocytosis Slight PT 15.0 H (9.0-12.0) sec INR 1.5 H (<1.2) APTT 26.7 (22.0-30.0) sec Sodium 136 L (137-145) mmol/L Potassium 5.0 (3.5-5.1) mmol/L Chloride 112 H (98-107) mmol/L Carbon Dioxide 22 (22-30) mmol/L Anion Gap 2 mmol/L BUN 28 H (7-17) mg/dL Creatinine 0.69 (0.52-1.04) mg/dL Est GFR (CKD-EPI)AfAm >90 (>60 ml/min/1.73 sqM) Est GFR (CKD-EPI)NonAf >90 (>60 ml/min/1.73 sqM) Glucose 186 H (74-99) mg/dL Plasma Lactic Acid Sin (0.7-2.0) mmol/L Calcium 8.3 L (8.4-10.2) mg/dL Magnesium 2.0 (1.6-2.3) mg/dL Total Bilirubin 2.8 H (0.2-1.3) mg/dL AST 95 H (14-36) U/L ALT 49 (9-52) U/L Alkaline Phosphatase 224 H (38-126) U/L Creatine Kinase 249 H (30-135) U/L Troponin I (0.000-0.034) ng/mL NT-Pro-B Natriuret Pep pg/mL Total Protein 5.6 L (6.3-8.2) g/dL Albumin 2.6 L (3.5-5.0) g/dL 09/01/18 09/01/18 09/01/18 Range/Units 10:00 10:00 10:00 WBC (3.8-10.6) k/uL RBC (3.80-5.40) m/uL Hgb (11.4-16.0) gm/dL Hct (34.0-46.0) % MCV (80.0-100.0) fL MCH (25.0-35.0) pg MCHC (31.0-37.0) g/dL RDW (11.5-15.5) % Plt Count (150-450) k/uL Neutrophils % Neutrophils % (Manual) % Band Neutrophils % % Lymphocytes % Lymphocytes % (Manual) % Monocytes % Monocytes % (Manual) % Eosinophils % Basophils % Metamyelocytes % % Myelocytes % % Neutrophils # Neutrophils # (Manual) (1.3-7.7) k/uL Lymphocytes # Lymphocytes # (Manual) (1.0-4.8) k/uL Monocytes # Monocytes # (Manual) (0-1.0) k/uL Eosinophils # Basophils # Metamyelocytes # (Man) (0) k/uL Myelocytes # (Manual) (0) k/uL Nucleated RBCs (0-0) /100 WBC Manual Slide Review Polychromasia Hypochromasia Poikilocytosis Anisocytosis Macrocytosis PT (9.0-12.0) sec INR (<1.2) APTT (22.0-30.0) sec Sodium (137-145) mmol/L Potassium (3.5-5.1) mmol/L Chloride (98-107) mmol/L Carbon Dioxide (22-30) mmol/L Anion Gap mmol/L BUN (7-17) mg/dL Creatinine (0.52-1.04) mg/dL Est GFR (CKD-EPI)AfAm (>60 ml/min/1.73 sqM) Est GFR (CKD-EPI)NonAf (>60 ml/min/1.73 sqM) Glucose (74-99) mg/dL Plasma Lactic Acid Sin 2.1 H* (0.7-2.0) mmol/L Calcium (8.4-10.2) mg/dL Magnesium (1.6-2.3) mg/dL Total Bilirubin (0.2-1.3) mg/dL AST (14-36) U/L ALT (9-52) U/L Alkaline Phosphatase (38-126) U/L Creatine Kinase (30-135) U/L Troponin I <0.012 (0.000-0.034) ng/mL NT-Pro-B Natriuret Pep 875 pg/mL Total Protein (6.3-8.2) g/dL Albumin (3.5-5.0) g/dL - Radiology Data Radiology results: image reviewed (Chest x-ray shows increased density right apex. Increase in her physician. Correlate for multifocal pneumonia or possible volume overload) Disposition Clinical Impression: Dyspnea, Multifocal pneumonia, Cirrhosis of liver Disposition: ADMITTED IP TO THIS [facility] Condition: Serious Is patient prescribed a controlled substance at d/c from ED?: No Referrals: Deidre Cartagena MD [Primary Care Provider] - 1-2 days Decision Time: 12:44
[2018-09-01 10:51] LABS: Anisocytosis Moderate; HCT 25.9 % (34.0-46.0); HGB 7.8 gm/dL (11.4-16.0); Hypochromasia Marked; MCH 29.3 pg (25.0-35.0); MCHC 30.3 g/dL (31.0-37.0); MCV 96.8 fL (80.0-100.0); Macrocytosis Slight; Mean Platelet Volume 10.7; Poikilocytosis Slight; RBC 2.67 m/uL (3.80-5.40); RDW 22.7 % (11.5-15.5)
[2018-09-01 11:03] LABS: ALT 49 U/L (9-52); AST 95 U/L (14-36); Albumin 2.6 g/dL (3.5-5.0); Alkaline Phosphatase 224 U/L (38-126); Anion Gap 2 mmol/L; Blood Urea Nitrogen 28 mg/dL (7-17); Calcium 8.3 mg/dL (8.4-10.2); Carbon Dioxide 22 mmol/L (22-30); Chloride 112 mmol/L (98-107); Creatine Kinase 249 U/L (30-135); Glucose 186 mg/dL (74-99); Sodium 136 mmol/L (137-145); Total Bilirubin 2.8 mg/dL (0.2-1.3); Total Protein 5.6 g/dL (6.3-8.2)
[2018-09-01 11:07] LABS: Band Neutrophils % 8 %; Metamyelocytes % 5 %; Myelocytes % 5 %; Neutrophils % (M) 62 %; Nucleated Red Blood Cells 6 /100 WBC (0-0); Total Cells Counted 200
[2018-09-01 11:08] LABS: Metamyelocytes # (M) 0.54 k/uL (0); Monocytes # (M) 1.08 k/uL (0-1.0); Myelocytes # (M) 0.54 k/uL (0); WBC 10.8 k/uL (3.8-10.6)
[2018-09-01 11:09] LABS: Platelet Count 79 k/uL (150-450); Polychromasia Present
[2018-09-01 11:13] LABS: INR 1.5 (<1.2); Partial Thromboplastin Time 26.7 sec (22.0-30.0)
--- NOTE | 2018-09-01 11:38 | XR ---
EXAMINATION TYPE: XR chest 2V DATE OF EXAM: 09/01/2018 COMPARISON: Prior chest x-ray 08/30/2018 HISTORY: Difficulty breathing TECHNIQUE: Frontal and lateral views of the chest are obtained. FINDINGS: There is abnormal increased density at the right lung apex, potential interval finding. Re trocardiac density persists. No pneumothorax or pleural effusion. Heart size is stable, enlarged. Pul monary vascularity is unchanged. Interstitium is increased. IMPRESSION: Correlate for multifocal pneumonia, possibly volume overload, pulmonary venous hypertens ion and interstitial edema.
[2018-09-01] MEDS ORDERED: PNEUMONIA PROTOCOL UTILIZED 1 EACH MISC PO PRN (12:45)
[2018-09-01] MEDS ORDERED: PIPERACILLIN-TAZOBACTAM 3.375 GM in SODIUM CHLORIDE 0.9% 100 ML IVPB STA (12:45)
[2018-09-01] MEDS ORDERED: LEVOFLOXACIN 750MG-D5W PMX 750 MG in DEXTROSE/WATER 1 150ML.BAG IVPB STA (12:45)
[2018-09-01] MEDS ORDERED: IPRATROPIUM-ALBUTEROL 3 ML NEB INHALATION PRN (12:45)
[2018-09-01] MEDS ORDERED: FUROSEMIDE 10 MG/ML 2 ML VIAL IV ONE (15:14)
--- NOTE | 2018-09-01 15:14 | P.HPIM ---
History of Present Illness Chief Complaint: SOB This very pleasant 68-year-old female with shortness of breath. Patient was discharged yesterday after being diagnosed and treated for COPD exacerbation. She said that she went home this morning she started to have the attack or shortness of breath again and she could not breathe. She called the ambulance and she came into the ER for further urology management. She said that she's still coughing was not able to get anything up. She does not complain of any fever or chills, she does not complain any abdominal pain, no nausea and vomiting, no diarrhea constipation. Patient feels that she is swollen all over including her lower extremities and her belly. ER course-his vitals were stable and she was saturating 98% on 2 L. Labwork was done which showed WBC 10.8 hemoglobin 7.8 platelets 79 sodium 136 potassium 5.0 bun 28 creatinine 0.69 lactic acid is 2.1 AST 95 ALT 49 alk phos 224 and patient was given breathing treatments, IV fluids, Zosyn and Levaquin and admitted to the hospitalist service a further admission and management Review of Systems All systems: negative Past Medical History Past Medical History: GI Bleed, Liver Disease Additional Past Medical History / Comment(s): NON ALCOHOL CIRRHOSIS OF LIVER - CURRENTLY ON LIVER TRANSPLANT LIST. 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 [facility] History of Any Multi-Drug Resistant Organisms: None Reported Past Surgical History: Bowel Resection, Hernia Repair, Hysterectomy, Joint Replacement, Orthopedic Surgery Additional Past Surgical History / Comment(s): x4 laproscopy's Past Anesthesia/Blood Transfusion Reactions: No Reported Reaction Past Psychological History: No Psychological Hx Reported Smoking Status: Never smoker Past Alcohol Use History: None Reported Past Drug Use History: None Reported Medications and Allergies Home Medications Medication Instructions Recorded Confirmed Type Furosemide [Lasix] 20 mg PO DAILY 07/04/16 09/01/18 History Lactulose 20 gm PO TID 07/04/16 09/01/18 History Ondansetron [Zofran] 4 mg PO Q8HR PRN 07/04/16 09/01/18 History Propranolol [Inderal] 20 mg PO BID 07/04/16 09/01/18 History Rifaximin [Xifaxan] 550 mg PO BID 07/04/16 09/01/18 History Oxybutynin Chloride 5 mg PO DAILY 08/27/18 09/01/18 History Benzonatate [Tessalon Perles] 100 mg PO TID #30 cap 08/30/18 09/01/18 Rx HYDROcodone/APAP 5-325MG [[place] 1 each PO Q6HR PRN #15 tab 08/30/18 09/01/18 Rx 5-325] Ipratropium-Albuterol Nebulize 3 ml INHALATION Q4H PRN #60 neb 08/30/18 09/01/18 Rx [Duoneb 0.5 mg-3 mg/3 ml Soln] Moxifloxacin HCl [Avelox] 400 mg PO DAILY #7 tablet 08/30/18 09/01/18 Rx predniSONE See Taper PO 09/01/18 History Allergies Allergy/AdvReac Type Severity Reaction Status Date / Time No Known Allergies Allergy Verified 09/01/18 10:19 Physical Exam Vitals: Vital Signs Temp Pulse Resp BP Pulse Ox 09/01/18 13:49 68 18 162/79 98 09/01/18 11:03 55 L 09/01/18 10:58 58 L 09/01/18 09:56 98.3 F 66 24 183/87 98 Intake and Output 09/01/18 09/01/18 09/01/18 06:59 14:59 22:59 Other: Weight 86.183 kg On exam, alert and oriented x3. HEENT: Conjunctivae normal. eyes normal. NECK: No JVD. No thyroid enlargement. No LNs CARDIOVASCULAR: S1, S2 muffled. No murmur RESPIRATION: has wheezing bilaterally more on the left side ABDOMEN: Soft, nontender . No guarding. no masses palpable. No ascites, No hepatosplenomegaly.Bowel sounds heard. LEGS: She has +1 pitting edema NERVOUS SYSTEM: Cranial N 2-12 grossly normal. Moves all 4 limbs. No focal deficits. No sensory deficit. No signs of cerebellar dysfucntion. Skin: no ulcer no rash Joints: No active swelling. No inflammation. Lymphatic system. No LN neck axilla or groin. Results CBC & Chem 7: 09/01/18 10:00 09/01/18 10:00 Labs: Abnormal Lab Results - Last 24 Hours (Table) 09/01/18 09/01/18 09/01/18 Range/Units 10:00 10:00 10:00 WBC 10.8 H (3.8-10.6) k/uL RBC 2.67 L (3.80-5.40) m/uL Hgb 7.8 L (11.4-16.0) gm/dL Hct 25.9 L (34.0-46.0) % MCHC 30.3 L (31.0-37.0) g/dL RDW 22.7 H (11.5-15.5) % Plt Count 79 L (150-450) k/uL Monocytes # (Manual) 1.08 H (0-1.0) k/uL Metamyelocytes # (Man) 0.54 H (0) k/uL Myelocytes # (Manual) 0.54 H (0) k/uL Nucleated RBCs 6 H (0-0) /100 WBC PT 15.0 H (9.0-12.0) sec INR 1.5 H (<1.2) Sodium 136 L (137-145) mmol/L Chloride 112 H (98-107) mmol/L BUN 28 H (7-17) mg/dL Glucose 186 H (74-99) mg/dL Plasma Lactic Acid Sin (0.7-2.0) mmol/L Calcium 8.3 L (8.4-10.2) mg/dL Total Bilirubin 2.8 H (0.2-1.3) mg/dL AST 95 H (14-36) U/L Alkaline Phosphatase 224 H (38-126) U/L Creatine Kinase 249 H (30-135) U/L Total Protein 5.6 L (6.3-8.2) g/dL Albumin 2.6 L (3.5-5.0) g/dL 09/01/18 Range/Units 10:00 WBC (3.8-10.6) k/uL RBC (3.80-5.40) m/uL Hgb (11.4-16.0) gm/dL Hct (34.0-46.0) % MCHC (31.0-37.0) g/dL RDW (11.5-15.5) % Plt Count (150-450) k/uL Monocytes # (Manual) (0-1.0) k/uL Metamyelocytes # (Man) (0) k/uL Myelocytes # (Manual) (0) k/uL Nucleated RBCs (0-0) /100 WBC PT (9.0-12.0) sec INR (<1.2) Sodium (137-145) mmol/L Chloride (98-107) mmol/L BUN (7-17) mg/dL Glucose (74-99) mg/dL Plasma Lactic Acid Sin 2.1 H* (0.7-2.0) mmol/L Calcium (8.4-10.2) mg/dL Total Bilirubin (0.2-1.3) mg/dL AST (14-36) U/L Alkaline Phosphatase (38-126) U/L Creatine Kinase (30-135) U/L Total Protein (6.3-8.2) g/dL Albumin (3.5-5.0) g/dL Assessment and Plan Assessment: - Acute respiratory failure - Multifocal pneumonia - Possible fluid overload secondary to steroids - Nonalcoholic liver cirrhosis - DJD Plan We'll admit the patient to selective unit We'll continue antibiotics Zosyn and Levaquin Pulmonology consult and will wait for the recommendations Patient is having lower extremity swelling and also says that her belly is swollen as well Echocardiogram done recently showed ejection fraction of 60-65% moderate pulmonary hypertension We'll give her 1 dose of Lasix and see how she responds We'll resume the patient's home medications when medications are uploaded in the computer DVT and GI prophylaxis We'll order for lab work in the morning Expected length of stay is more than 2 midnights Patient is full code Time with Patient: Greater than 30
[2018-09-01] MEDS: IPRATROPIUM-ALBUTEROL 3 ML NEB INHALATION SCH ×2 (15:23→19:41)
[2018-09-01] MEDS: methylPREDNISolone SOD SUCCI 40 MG/ML 1 ML VIAL IV SCH ×2 (15:54→20:07)
[2018-09-01 17:22] LABS: Amorphous Sediment,Urine Rare /hpf; Appearance,Urine Clear (Clear); Bilirubin,Urine Negative (Negative); Blood,Urine Trace (Negative); Color,Urine Colorless; Glucose,Urine (UA) Negative (Negative); Ketones,Urine Negative (Negative); Leukocyte Esterase,Urine Negative (Negative); Nitrite,Urine Negative (Negative); Protein,Urine Negative (Negative); RBC,Urine 3 /hpf (0-5); Specific Gravity,Urine 1.006 (1.001-1.035); Squamous Epithelial Cell,Urine <1 /hpf (0-4); Urobilinogen,Urine <2.0 mg/dL (<2.0); WBC,Urine 1 /hpf (0-5)
[2018-09-01] MEDS: NYSTATIN 100,000 UNIT/ML SUSP 500,000 UNIT/5 ML CUP PO SCH ×2 (17:44→21:53)
[2018-09-01] MEDS: FUROSEMIDE 10 MG/ML 4 ML VIAL IV SCH (20:07)
[2018-09-01 20:55] LABS: Glucose,Whole Blood 280 mg/dL (75-99)
[2018-09-01] MEDS ORDERED: HYDROcodone/APAP 5-325MG 1 EACH TAB PO PRN (21:28)
[2018-09-01] MEDS: LACTULOSE 20 GM/30 ML CUP PO SCH (21:53)
[2018-09-01] MEDS: INSULIN ASPART (NovoLOG) 100 UNIT/ML VIAL SQ SCH (21:53)
[2018-09-01] MEDS: BENZONATATE 100 MG CAP PO SCH (21:53)
[2018-09-01] MEDS: PIPERACILLIN-TAZOBACTAM 3.375 GM in SODIUM CHLORIDE 0.9% 100 ML IVPB SCH (23:37)
[2018-09-02 06:03] LABS: Glucose,Whole Blood 272 mg/dL (75-99)
[2018-09-02] MEDS: INSULIN ASPART (NovoLOG) 100 UNIT/ML VIAL SQ SCH ×4 (06:16→21:07)
[2018-09-02] MEDS: IPRATROPIUM-ALBUTEROL 3 ML NEB INHALATION SCH ×4 (08:11→19:50)
[2018-09-02] MEDS: PIPERACILLIN-TAZOBACTAM 3.375 GM in SODIUM CHLORIDE 0.9% 100 ML IVPB SCH ×3 (08:12→23:13)
[2018-09-02] MEDS: methylPREDNISolone SOD SUCCI 40 MG/ML 1 ML VIAL IV SCH ×2 (08:13→21:07)
[2018-09-02] MEDS: BENZONATATE 100 MG CAP PO SCH ×3 (08:13→21:06)
[2018-09-02] MEDS: LACTULOSE 20 GM/30 ML CUP PO SCH ×3 (08:13→21:09)
[2018-09-02] MEDS: FUROSEMIDE 10 MG/ML 4 ML VIAL IV SCH ×2 (08:13→21:06)
[2018-09-02] MEDS: PROPRANOLOL 20 MG TAB PO SCH ×2 (08:14→21:06)
[2018-09-02] MEDS: NYSTATIN 100,000 UNIT/ML SUSP 500,000 UNIT/5 ML CUP PO SCH ×4 (08:14→21:10)
[2018-09-02] MEDS: RIFAXIMIN 550 MG TABLET PO SCH ×2 (08:14→21:06)
[2018-09-02] MEDS: OXYBUTYNIN CHLORIDE 5 MG TAB PO SCH (08:14)
--- NOTE | 2018-09-02 09:11 | XR ---
EXAMINATION TYPE: XR chest 2V DATE OF EXAM: 09/02/2018 COMPARISON: Pneumonia INDICATION: 09/01/2018 TECHNIQUE: Frontal and lateral views of the chest are obtained. FINDINGS: The heart size is normal. The pulmonary vasculature is prominent. Scattered increased lung markings are present. This is more focal in the right apex. Correlate for pn eumonia. Atypical pulmonary edema considered less likely but within the differential. IMPRESSION: 1. Clinical correlation recommended for pneumonia versus atypical pulmonary edema. Findings are simil ar to prior study. Continued follow-up is recommended.
--- NOTE | 2018-09-02 10:27 | P.CRDCN ---
History of Present Illness Consult date: 09/02/18 Chief complaint: Shortness of breath History of present illness: This is a 68-year-old female patient with a past medical history significant for end stage liver disease, currently the patient is on the transplant list, currently she does follow with log loader at [facility], history of chronic alcohol use, chronic anemia, and chronic obstructive pulmonary disease, presented to the hospital complaining of shortness of breath. The patient just was discharged from the hospital recently after she was admitted with a pneumonia and COPD exacerbation. She does have chronic shortness of breath but for the last few days, she has been experiencing worsening exertional dyspnea and she stated that she cannot walk more than a few feet before she stopped because of the shortness of breath. Beside the exertional dyspnea, she denies a ny orthopnea or PND. She stated that she did have severe bilateral lower extremities edema and on examination she does have at least 2+ pitting edema. No weight change. No symptoms of chest pain or chest discomfort. No dizziness or lightheadedness, heart racing or fluttering, or syncope. No fever or chills. No history of congestive heart failure in the past. She stated that she underwent a heart catheterization about a year ago at [facility] as a process before the liver transplant and that came in to be unremarkable. The echocardiogram from her prior admission in August 2018 revealed normal LV function with mild aortic stenosis, mild mitral regurgitation, and mild tricuspid re gurgitation. The patient was given Lasix when she presented to the hospital and currently she is on Lasix at 40 mg twice a day. Also she is getting treated for pneumonia and for COPD exacerbation. Past Medical History Past Medical History: GI Bleed, Liver Disease Additional Past Medical History / Comment(s): NON ALCOHOL CIRRHOSIS OF LIVER - CURRENTLY ON LIVER TRANSPLANT LIST. 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 [facility] and she has history of portal hypertension, chronic anemia, chronic dyspea, obesity, chronic thrombocytopenia History of Any Multi-Drug Resistant Organisms: None Reported Past Surgical History: Bowel Resection, Hernia Repair, Hysterectomy, Joint Replacement, Orthopedic Surgery Additional Past Surgical History / Comment(s): x4 laproscopy's Past Anesthesia/Blood Transfusion Reactions: No Reported Reaction Past Psychological History: No Psychological Hx Reported Smoking Status: Never smoker Past Alcohol Use History: None Reported Past Drug Use History: None Reported Medications and Allergies Home Medications Medication Instructions Recorded Confirmed Type Furosemide [Lasix] 20 mg PO DAILY 07/04/16 09/01/18 History Lactulose 20 gm PO TID 07/04/16 09/01/18 History Ondansetron [Zofran] 4 mg PO Q8HR PRN 07/04/16 09/01/18 History Propranolol [Inderal] 20 mg PO BID 07/04/16 09/01/18 History Rifaximin [Xifaxan] 550 mg PO BID 07/04/16 09/01/18 History Oxybutynin Chloride 5 mg PO DAILY 08/27/18 09/01/18 History Benzonatate [Tessalon Perles] 100 mg PO TID #30 cap 08/30/18 09/01/18 Rx HYDROcodone/APAP 5-325MG [[place] 1 each PO Q6HR PRN #15 tab 08/30/18 09/01/18 Rx 5-325] Ipratropium-Albuterol Nebulize 3 ml INHALATION Q4H PRN #60 neb 08/30/18 09/01/18 Rx [Duoneb 0.5 mg-3 mg/3 ml Soln] Moxifloxacin HCl [Avelox] 400 mg PO DAILY #7 tablet 08/30/18 09/01/18 Rx predniSONE See Taper PO 09/01/18 History Allergies Allergy/AdvReac Type Severity Reaction Status Date / Time No Known Allergies Allergy Verified 09/01/18 10:19 Physical Exam Vitals: Vital Signs Temp Pulse Pulse Resp BP BP Pulse Ox 09/02/18 08:26 76 09/02/18 08:22 97.4 F L 74 20 153/67 95 09/02/18 08:11 76 09/02/18 03:41 72 18 182/74 95 09/02/18 00:00 79 18 152/65 95 09/01/18 20:00 97.8 F 78 24 187/77 94 L 09/01/18 19:51 76 09/01/18 19:42 76 09/01/18 16:00 97.9 F 79 20 148/91 93 L 09/01/18 15:24 68 09/01/18 15:05 98.4 F 72 18 163/70 97 09/01/18 13:49 68 18 162/79 98 09/01/18 11:03 55 L 09/01/18 10:58 58 L Intake and Output 09/01/18 09/02/18 09/02/18 22:59 06:59 14:59 Intake Total 0 480 Output Total 1000 300 Balance -1000 -300 480 Intake: Oral 0 480 Output: Urine 1000 300 Other: Voiding Method Bedside Commode # Voids 1 1 1 Weight 104.1 kg - Constitutional General appearance: no acute distress - Respiratory Respiratory: bilateral: diminished - Cardiovascular Rhythm: regular Heart sounds: normal: S1, S2 Abnormal Heart Sounds: systolic murmur Results 09/01/18 10:00 09/01/18 10:00 Cardiac Enzymes 09/01/18 09/01/18 Range/Units 10:00 10:00 AST 95 H (14-36) U/L Troponin I <0.012 (0.000-0.034) ng/mL Coagulation 09/01/18 Range/Units 10:00 PT 15.0 H (9.0-12.0) sec APTT 26.7 (22.0-30.0) sec CBC 09/01/18 Range/Units 10:00 WBC 10.8 H (3.8-10.6) k/uL RBC 2.67 L (3.80-5.40) m/uL Hgb 7.8 L (11.4-16.0) gm/dL Hct 25.9 L (34.0-46.0) % Plt Count 79 L (150-450) k/uL Comprehensive Metabolic Panel 09/01/18 Range/Units 10:00 Sodium 136 L (137-145) mmol/L Potassium 5.0 (3.5-5.1) mmol/L Chloride 112 H (98-107) mmol/L Carbon Dioxide 22 (22-30) mmol/L BUN 28 H (7-17) mg/dL Creatinine 0.69 (0.52-1.04) mg/dL Glucose 186 H (74-99) mg/dL Calcium 8.3 L (8.4-10.2) mg/dL AST 95 H (14-36) U/L ALT 49 (9-52) U/L Alkaline Phosphatase 224 H (38-126) U/L Total Protein 5.6 L (6.3-8.2) g/dL Albumin 2.6 L (3.5-5.0) g/dL Current Medications Generic Name Dose Route Start Last Admin Trade Name Freq PRN Reason Stop Dose Admin Hydrocodone Bitart/Acetaminophen 1 each 09/01/18 21:28 [place] 5-325 PO Q6HR PRN Pain Albuterol/Ipratropium 3 ml 09/01/18 16:00 09/02/18 08:11 Duoneb 0.5 Mg-3 Mg/3 Ml Soln INHALATION 3 ml RT-QID HOA Administration Albuterol/Ipratropium 3 ml 09/01/18 12:45 Duoneb 0.5 Mg-3 Mg/3 Ml Soln INHALATION RT-Q4H PRN shortness of breath Benzonatate 100 mg 09/01/18 22:00 09/02/18 08:13 Tessalon Perles PO 100 mg TID HOA Administration Furosemide 40 mg 09/01/18 21:00 09/02/18 08:13 Lasix IV 40 mg Q12HR HOA Administration Levofloxacin 750 mg/ IV 150 mls @ 100 mls/hr 09/02/18 16:00 Solution IVPB 09/14/18 16:01 Q24H HOA Piperacillin Sod/Tazobactam 100 mls @ 25 mls/hr 09/02/18 00:00 09/02/18 08:12 Sod 3.375 gm/ Sodium Chloride IVPB 09/11/18 00:01 25 mls/hr Q8HR HOA Administration Insulin Aspart 0 unit 09/01/18 21:00 09/02/18 06:16 Novolog SQ 8 unit ACHS HOA Administration Protocol Lactulose 20 gm 09/01/18 22:00 09/02/18 08:13 Cephulac PO Not Given TID HOA Methylprednisolone Sodium Succinate 40 mg 09/01/18 16:00 09/02/18 08:13 Solu-Medrol IV 40 mg Q12HR HOA Administration Miscellaneous Information 1 each 09/01/18 12:45 Pneumonia Protocol Utilized PO ONCE PRN Per Protocol Nystatin 500,000 unit 09/01/18 18:00 09/02/18 08:14 Mycostatin Oral Susp PO 500,000 unit QID HOA Administration Oxybutynin Chloride 5 mg 09/02/18 09:00 09/02/18 08:14 Ditropan PO 5 mg DAILY HOA Administration Propranolol HCl 20 mg 09/02/18 09:00 09/02/18 08:14 Inderal PO 20 mg BID HOA Administration Rifaximin 550 mg 09/02/18 09:00 09/02/18 08:14 Xifaxan PO 10/02/18 09:01 550 mg BID HOA Administration Sodium Chloride 10 ml 09/01/18 21:00 09/02/18 08:14 Saline Flush IV 10 ml BID HOA Administration Intake and Output 09/01/18 09/02/18 09/02/18 22:59 06:59 14:59 Intake Total 0 480 Output Total 1000 300 Balance -1000 -300 480 Intake: Oral 0 480 Output: Urine 1000 300 Other: Voiding Method Bedside Commode # Voids 1 1 1 Weight 104.1 kg 09/01/18 10:00 09/01/18 10:00 Assessment and Plan Assessment: Assessment #1 congestive heart failure exacerbation secondary to diastolic dysfunction, acute on chronic. The patient does have symptoms of right and left heart failure #2 end-stage liver disease currently the patient is on the liver transplant list #3 preserved left ventricular systolic function on recent echocardiogram #4 mild aortic stenosis on recent echocardiogram #5 chronic alcohol use #6 chronic anemia Plan #1 continue the current dose of Lasix IV #2 monitor the kidney function and electrolytes #3 no need to repeat the echocardiogram #4 follow-up with the patient Thank you for allowing us participate in her care
[2018-09-02 11:42] LABS: Glucose,Whole Blood 243 mg/dL (75-99)
--- NOTE | 2018-09-02 13:28 | P.CNPUL ---
History of Present Illness Consult date: 09/02/18 Reason for consult: dyspnea, pneumonia History of present illness: This is 68-year-old white female patient with past medical history of nonalcoholic liver cirrhosis and is on the liver transplant list, lifetime nonsmoker, chronic anemia, history of esophageal variceal banding, who presented to the hospital on 08/27/2018 with complaints of worsening shortness of breath and fever. Patient states she has been chronically short of breath for a period of over a year, but her dyspnea has become progressively worse 's 2 AM on 08/27/2018, she developed a dry cough and a fever, she was wheezing. Patient did have a one episode of nonbloody nonbilious emesis on the way to the hospital, no abdominal pain or diarrhea, she denied any sick contacts. D-dimer was elevated, and CT angios was completed and revealed no acute pulmonary embolism however it did show atypical mass in the left lung and there was a consolidation consistent with pneumonia. Patient was started on IV antibiotics in the form of Zithromax and Rocephin, and later Rocephin was switched to Zosyn. The patient was treated with and she was discharged home on Avelox. knowing that the FU CXR was showing improvement in the consolidation. The patient went home and she started to have the attack or shortness of breath again and she could not breathe. She called the ambulance and she came into the ER for further urology management. She said that she's still coughing was not able to get anything up. She does not complain of any fever or chills, she does not complain any abdominal pain, no nausea and vomiting, no diarrhea constipation. Patient feels that she is swollen all over including her lower extremities and her belly. ER course-his vitals were stable and she was saturating 98% on 2 L. Labwork was done which showed WBC 10.8 hemoglobin 7.8 platelets 79 sodium 136 potassium 5.0 bun 28 creatinine 0.69 lactic acid is 2.1 AST 95 ALT 49 alk phos 224 and patient was given breathing treatments, IV fluids, Zosyn and Levaquin and admitted to the hospitalist service a further admission and management. Review of the CXR showed a multifocal infiltrate. The patient was given a dose of lasix in the ED. She had a echo in 05/2018 and she was found to have a normal EF of 55%. Clinically she is feeling better as the patient is being diuresis with IV Lasix. Chest x-ray from today is showing some stable findings without any interval worsening in the pulmonary infiltrates. The patient remains on room air oxygen with a pulse ox of 96%. Review of Systems Constitutional: Denies chills, Denies fever Eyes: denies blurred vision, denies pain Ears, nose, mouth and throat: Denies headache, Denies sore throat Cardiovascular: Denies chest pain, Denies shortness of breath, increasing lower extremity edema Respiratory: Reports dyspnea, Denies cough, with interval worsening in her shortness of breath Gastrointestinal: Denies abdominal pain, Denies diarrhea, Denies nausea, Denies vomiting, abdominal distention and the patient has history of liver cirrhosis Genitourinary: Denies dysuria, Denies hematuria Musculoskeletal: Denies myalgias, increased lower extremity edema Integumentary: Denies pruritus, Denies rash Neurological: Denies numbness, Denies weakness Psychiatric: She has increased anxiety, Denies depression Endocrine: Denies fatigue, Denies weight change Past Medical History Past Medical History: GI Bleed, Liver Disease Additional Past Medical History / Comment(s): NON ALCOHOL CIRRHOSIS OF LIVER - CURRENTLY ON LIVER TRANSPLANT LIST. 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 [facility] and she has history of portal hypertension, chronic anemia, chronic dyspea, obesity, chronic thrombocytopenia History of Any Multi-Drug Resistant Organisms: None Reported Past Surgical History: Bowel Resection, Hernia Repair, Hysterectomy, Joint Replacement, Orthopedic Surgery Additional Past Surgical History / Comment(s): x4 laproscopy's Past Anesthesia/Blood Transfusion Reactions: No Reported Reaction Past Psychological History: No Psychological Hx Reported Smoking Status: Never smoker Past Alcohol Use History: None Reported Past Drug Use History: None Reported Medications and Allergies Home Medications Medication Instructions Recorded Confirmed Type Furosemide [Lasix] 20 mg PO DAILY 07/04/16 09/01/18 History Lactulose 20 gm PO TID 07/04/16 09/01/18 History Ondansetron [Zofran] 4 mg PO Q8HR PRN 07/04/16 09/01/18 History Propranolol [Inderal] 20 mg PO BID 07/04/16 09/01/18 History Rifaximin [Xifaxan] 550 mg PO BID 07/04/16 09/01/18 History Oxybutynin Chloride 5 mg PO DAILY 08/27/18 09/01/18 History Benzonatate [Tessalon Perles] 100 mg PO TID #30 cap 08/30/18 09/01/18 Rx HYDROcodone/APAP 5-325MG [[place] 1 each PO Q6HR PRN #15 tab 08/30/18 09/01/18 Rx 5-325] Ipratropium-Albuterol Nebulize 3 ml INHALATION Q4H PRN #60 neb 08/30/18 09/01/18 Rx [Duoneb 0.5 mg-3 mg/3 ml Soln] Moxifloxacin HCl [Avelox] 400 mg PO DAILY #7 tablet 08/30/18 09/01/18 Rx predniSONE See Taper PO 09/01/18 History Allergies Allergy/AdvReac Type Severity Reaction Status Date / Time No Known Allergies Allergy Verified 09/01/18 10:19 Physical Exam Vitals: Vital Signs Temp Pulse Pulse Resp BP BP Pulse Ox 09/02/18 12:08 72 09/02/18 12:00 98.3 F 72 18 156/74 96 09/02/18 11:52 72 09/02/18 08:26 76 09/02/18 08:22 97.4 F L 74 20 153/67 95 09/02/18 08:11 76 09/02/18 03:41 72 18 182/74 95 09/02/18 00:00 79 18 152/65 95 09/01/18 20:00 97.8 F 78 24 187/77 94 L 09/01/18 19:51 76 09/01/18 19:42 76 09/01/18 16:00 97.9 F 79 20 148/91 93 L 09/01/18 15:24 68 09/01/18 15:05 98.4 F 72 18 163/70 97 09/01/18 13:49 68 18 162/79 98 Intake and Output 09/01/18 09/02/18 09/02/18 22:59 06:59 14:59 Intake Total 0 720 Output Total 1751 977 3522 Balance -1000 -300 -1080 Intake: Oral 0 720 Output: Urine 6126 667 3643 Other: Voiding Method Bedside Commode # Voids 1 1 1 Weight 104.1 kg GENERAL EXAM: Alert, pleasant, obese 68-year-old white female comfortable in no apparent distress. HEAD: Normocephalic/atraumatic. EYES: Normal reaction of pupils, equal size. Conjunctiva pink, sclera white. NOSE: Clear with pink turbinates. THROAT: No erythema or exudates. NECK: No masses, no JVD, no thyroid enlargement, no adenopathy. CHEST: No chest wall deformity. Symmetrical expansion. LUNGS: Equal air entry with coarse inspiratory crackles over left lower lobe CVS: Regular rate and rhythm, normal S1 and S2, no gallops, no murmurs, no rubs ABDOMEN: Soft, nontender. No hepatosplenomegaly, normal bowel sounds, no guarding or rigidity. EXTREMITIES: No clubbing, no edema, no cyanosis, 2+ pulses and upper and lower extremities. MUSCULOSKELETAL: Muscle strength and tone normal. SPINE: No scoliosis or deformity SKIN: No rashes CENTRAL NERVOUS SYSTEM: Alert and oriented -3. No focal deficits, tone is normal in all 4 extremities. PSYCHIATRIC: Alert and oriented -3. Appropriate affect. Intact judgment and insight. Results - Laboratory Findings CBC and BMP: 09/01/18 10:00 09/01/18 10:00 PT/INR, D-dimer PT 15.0 sec (9.0-12.0) H 09/01/18 10:00 INR 1.5 (<1.2) H 09/01/18 10:00 Abnormal lab findings: Abnormal Labs 09/01/18 09/01/18 09/01/18 10:00 10:00 10:00 WBC 10.8 H RBC 2.67 L Hgb 7.8 L Hct 25.9 L MCHC 30.3 L RDW 22.7 H Plt Count 79 L Monocytes # (Manual) 1.08 H Metamyelocytes # (Man) 0.54 H Myelocytes # (Manual) 0.54 H Nucleated RBCs 6 H PT 15.0 H INR 1.5 H Sodium 136 L Chloride 112 H BUN 28 H Glucose 186 H POC Glucose (mg/dL) Plasma Lactic Acid Sin Calcium 8.3 L Total Bilirubin 2.8 H AST 95 H Alkaline Phosphatase 224 H Creatine Kinase 249 H Total Protein 5.6 L Albumin 2.6 L Urine Blood Amorphous Sediment 09/01/18 09/01/18 09/01/18 10:00 16:59 20:53 WBC RBC Hgb Hct MCHC RDW Plt Count Monocytes # (Manual) Metamyelocytes # (Man) Myelocytes # (Manual) Nucleated RBCs PT INR Sodium Chloride BUN Glucose POC Glucose (mg/dL) 280 H Plasma Lactic Acid Sin 2.1 H* Calcium Total Bilirubin AST Alkaline Phosphatase Creatine Kinase Total Protein Albumin Urine Blood Trace H Amorphous Sediment Rare H 09/02/18 09/02/18 06:02 11:40 WBC RBC Hgb Hct MCHC RDW Plt Count Monocytes # (Manual) Metamyelocytes # (Man) Myelocytes # (Manual) Nucleated RBCs PT INR Sodium Chloride BUN Glucose POC Glucose (mg/dL) 272 H 243 H Plasma Lactic Acid Sin Calcium Total Bilirubin AST Alkaline Phosphatase Creatine Kinase Total Protein Albumin Urine Blood Amorphous Sediment - Diagnostic Findings Chest x-ray: image reviewed Assessment and Plan Plan: 1. Dyspnea with multifocal pulmonary infiltrates. Patient initially presented with a left lower lobe pneumonia and subsequently she developed bilateral pulmonary infiltrates which could be pneumonia progression versus interstitial edema/fluid. She continues to have a left lower lobe consolidation. She is short of breath. Nevertheless, despite the pulmonary abnormalities, she remains on room air oxygen with a pulse ox of 96%. No significant leukocytosis. No fever. No hemodynamic instability. 2 left lower lung pneumonia, community acquired, in the immunocompromised patient. The patient was treated and she was discharged home on oral Avelox 3. Chronic nonalcoholic liver cirrhosis patient is on the transplant list 4. Chronic anemia, related to iron deficiency and the patient was given IV iron during her last hospital stay. Iron level remains low. 5 Obesity 6 History of esophageal variceal banding 7 History of bowel resection/ hernia repair 8 thrombocytopenia secondary to above Plan Ordered a pro-calcitonin level. Continue the current antibiotic coverage. IV diuretics. May need to consider another CAT scan of the chest findings remain unchanged over the next 24 hours. I suspect that the patient a component of fluid overload in addition to left lower lobe pneumonia and she has not fully recovered yet. We'll continue to follow.
[2018-09-02] MEDS: LEVOFLOXACIN 750MG-D5W PMX 750 MG in DEXTROSE/WATER 1 150ML.BAG IVPB SCH (15:43)
[2018-09-02 17:05] LABS: Glucose,Whole Blood 299 mg/dL (75-99)
--- NOTE | 2018-09-02 20:33 | P.PN ---
Subjective This very pleasant 68-year-old female with shortness of breath. Patient was discharged yesterday after being diagnosed and treated for COPD exacerbation. She said that she went home this morning she started to have the attack or shortness of breath again and she could not breathe. She called the ambulance and she came into the ER for further urology management. She said that she's still coughing was not able to get anything up. She does not complain of any fever or chills, she does not complain any abdominal pain, no nausea and vomiting, no diarrhea constipation. Patient feels that she is swollen all over including her lower extremities and her belly. 09/02/18 Pt still sob and having cough no fevers, no chills Objective - Vital Signs Vital signs: Vital Signs Temp 98.3 F 09/02/18 12:00 Pulse 90 09/02/18 20:00 Resp 18 09/02/18 16:00 BP 136/61 09/02/18 16:00 Pulse Ox 95 09/02/18 19:50 Intake & Output 09/02/18 09/02/18 09/03/18 06:59 18:59 06:59 Intake Total 960 Output Total 1300 1800 Balance -1300 -840 Weight 104.1 kg Intake: Oral 960 Output: Urine 1300 1800 Other: Voiding Method Bedside Commode # Voids 1 2 - Exam On exam, alert and oriented x3. HEENT: Conjunctivae normal. eyes normal. NECK: No JVD. No thyroid enlargement. No LNs CARDIOVASCULAR: S1, S2 muffled. No murmur RESPIRATION: has wheezing bilaterally more on the left side ABDOMEN: Soft, nontender . No guarding. no masses palpable. No ascites, No hepatosplenomegaly.Bowel sounds heard. LEGS: She has +1 pitting edema NERVOUS SYSTEM: Cranial N 2-12 grossly normal. Moves all 4 limbs. No focal deficits. No sensory deficit. No signs of cerebellar dysfucntion. Skin: no ulcer no rash Joints: No active swelling. No inflammation. Lymphatic system. No LN neck axilla or groin. - Labs CBC & Chem 7: 09/01/18 10:00 09/01/18 10:00 Labs: Abnormal Lab Results - Last 24 Hours (Table) 09/01/18 09/02/18 09/02/18 Range/Units 20:53 06:02 11:40 POC Glucose (mg/dL) 280 H 272 H 243 H (75-99) mg/dL 09/02/18 Range/Units 17:03 POC Glucose (mg/dL) 299 H (75-99) mg/dL Microbiology - Last 24 Hours (Table) 09/01/18 16:59 Urine Culture - Final Urine,Voided 09/01/18 10:45 Blood Culture - Preliminary Blood No Growth after 24 hours Assessment and Plan Assessment: - Acute respiratory failure - Multifocal pneumonia - Possible fluid overload secondary to steroids - Nonalcoholic liver cirrhosis - DJD Plan 09/01 We'll admit the patient to selective unit We'll continue antibiotics Zosyn and Levaquin Pulmonology consult and will wait for the recommendations Patient is having lower extremity swelling and also says that her belly is swollen as well Echocardiogram done recently showed ejection fraction of 60-65% moderate pulmonary hypertension We'll give her 1 dose of Lasix and see how she responds We'll resume the patient's home medications when medications are uploaded in the computer DVT and GI prophylaxis We'll order for lab work in the morning Expected length of stay is more than 2 midnights Patient is full code 09/02 - Will continue abx as per pulmo recommendations - started on lasix for fluid overload - continue rest of the medical care - will f/u Time with Patient: Less than 30
[2018-09-02 20:56] LABS: Glucose,Whole Blood 199 mg/dL (75-99)
[2018-09-02] MEDS: MELATONIN 3 MG TABLET PO SCH (21:06)
[2018-09-02] MEDS: PRAMIPEXOLE 0.25 MG TAB PO PRN (21:06)
[2018-09-03 06:08] LABS: Glucose,Whole Blood 261 mg/dL (75-99)
[2018-09-03] MEDS: INSULIN ASPART (NovoLOG) 100 UNIT/ML VIAL SQ SCH ×4 (06:39→20:59)
[2018-09-03 07:23] LABS: Anisocytosis Marked; HGB 7.5 gm/dL (11.4-16.0); Hypochromasia Marked; MCH 29.6 pg (25.0-35.0); MCV 98.6 fL (80.0-100.0); Macrocytosis Moderate; Mean Platelet Volume 11.6; RBC 2.53 m/uL (3.80-5.40); RDW 24.2 % (11.5-15.5); WBC 6.2 k/uL (3.8-10.6)
[2018-09-03 07:45] LABS: Anion Gap 3 mmol/L; Blood Urea Nitrogen 24 mg/dL (7-17); Calcium 7.8 mg/dL (8.4-10.2); Carbon Dioxide 30 mmol/L (22-30); Chloride 106 mmol/L (98-107); Glucose 231 mg/dL (74-99); Sodium 139 mmol/L (137-145)
[2018-09-03 08:07] LABS: Platelet Count 53 k/uL (150-450)
[2018-09-03] MEDS: NYSTATIN 100,000 UNIT/ML SUSP 500,000 UNIT/5 ML CUP PO SCH ×4 (08:08→20:30)
[2018-09-03] MEDS: LACTULOSE 20 GM/30 ML CUP PO SCH ×3 (08:08→20:34)
[2018-09-03] MEDS: PROPRANOLOL 20 MG TAB PO SCH ×2 (08:09→20:31)
[2018-09-03] MEDS: FUROSEMIDE 10 MG/ML 4 ML VIAL IV SCH ×2 (08:09→20:30)
[2018-09-03] MEDS: RIFAXIMIN 550 MG TABLET PO SCH ×2 (08:09→20:31)
[2018-09-03] MEDS: OXYBUTYNIN CHLORIDE 5 MG TAB PO SCH (08:09)
[2018-09-03] MEDS: methylPREDNISolone SOD SUCCI 40 MG/ML 1 ML VIAL IV SCH ×2 (08:09→20:31)
[2018-09-03] MEDS: BENZONATATE 100 MG CAP PO SCH ×3 (08:09→20:31)
[2018-09-03] MEDS: PIPERACILLIN-TAZOBACTAM 3.375 GM in SODIUM CHLORIDE 0.9% 100 ML IVPB SCH ×3 (08:14→23:44)
[2018-09-03] MEDS: IPRATROPIUM-ALBUTEROL 3 ML NEB INHALATION SCH ×4 (08:24→18:46)
--- NOTE | 2018-09-03 11:43 | P.PN ---
Subjective Progress Note Date: 09/03/18 Principal diagnosis: Dyspnea related to pneumonia, and congestive heart failure This is 68-year-old white female patient with past medical history of nonalcoholic liver cirrhosis and is on the liver transplant list, lifetime nonsmoker, chronic anemia, history of esophageal variceal banding, who presented to the hospital on 08/27/2018 with complaints of worsening shortness of breath and fever. Patient states she has been chronically short of breath for a period of over a year, but her dyspnea has become progressively worse 's 2 AM on 08/27/2018, she developed a dry cough and a fever, she was wheezing. Patient did have a one episode of nonbloody nonbilious emesis on the way to the hospital, no abdominal pain or diarrhea, she denied any sick contacts. D-dimer was elevated, and CT angios was completed and revealed no acute pulmonary embolism however it did show atypical mass in the left lung and there was a consolidation consistent with pneumonia. Patient was started on IV antibiotics in the form of Zithromax and Rocephin, and later Rocephin was switched to Zosyn. The patient was treated with and she was discharged home on Avelox. knowing that the FU CXR was showing improvement in the consolidation. The patient went home and she started to have the attack or shortness of breath again and she could not breathe. She called the ambulance and she came into the ER for further urology management. She said that she's still coughing was not able to get anything up. She does not complain of any fever or chills, she does not complain any abdominal pain, no nausea and vomiting, no diarrhea constipation. Patient feels that she is swollen all over including her lower extremities and her belly. ER course-his vitals were stable and she was saturating 98% on 2 L. Labwork was done which showed WBC 10.8 hemoglobin 7.8 platelets 79 sodium 136 potassium 5.0 bun 28 creatinine 0.69 lactic acid is 2.1 AST 95 ALT 49 alk phos 224 and patient was given breathing treatments, IV fluids, Zosyn and Levaquin and admitted to the hospitalist service a further admission and management. Review of the CXR showed a multifocal infiltrate. The patient was given a dose of lasix in the ED. She had a echo in 05/2018 and she was found to have a normal EF of 55%. Clinically she is feeling better as the patient is being diuresis with IV Lasix. Chest x-ray from today is showing some stable findings without any interval worsening in the pulmonary infiltrates. The patient remains on room air oxygen with a pulse ox of 96%. On 08/26/2018 patient seen in follow-up on selective care unit, she is awake and alert, in no acute distress, she remains on IV Lasix, she is diuresing, she is in negative fluid balance. She is down 2.3 kg in the last 24 hours. Lower extremity edema is improving. The patient still complaining of being dyspneic with exertion. No fever or chills. Urine and blood cultures showed no growth, patient is not bringing up any sputum, lung sounds are positive for coarse rales at bilateral lower lobes, still has a residual 1+ pitting edema in lower e xtremities. Fever or chills. She is on Levaquin and Zosyn for antibiotic coverage. And IV Solu-Medrol 40 mg every 12 hours. We'll obtain follow-up chest x-ray today. Objective - Vital Signs Vital signs: Vital Signs Temp 97.7 F 09/03/18 07:25 Pulse 75 09/03/18 08:37 Resp 16 09/03/18 07:25 BP 180/81 09/03/18 07:25 Pulse Ox 97 09/03/18 08:24 Intake & Output 09/02/18 09/03/18 09/03/18 18:59 06:59 18:59 Intake Total 960 340 Output Total 1800 500 Balance -840 -500 340 Weight 101.8 kg Intake: Intake, IV Titration 100 Amount Piperacillin-Tazobactam 3 100 .375 gm In Sodium Chloride 0.9% 100 ml @ 25 mls/hr IVPB Q8HR [facility] Rx# :[id number] Oral 960 240 Output: Urine 1800 500 Other: Voiding Method Bedside Commode Toilet # Voids 2 1 - Exam GENERAL EXAM: Alert, pleasant, obese 68-year-old white female comfortable in no apparent distress. HEAD: Normocephalic/atraumatic. EYES: Normal reaction of pupils, equal size. Conjunctiva pink, sclera white. NOSE: Clear with pink turbinates. THROAT: No erythema or exudates. NECK: No masses, no JVD, no thyroid enlargement, no adenopathy. CHEST: No chest wall deformity. Symmetrical expansion. LUNGS: Equal air entry with coarse inspiratory crackles over bilateral lower lobes CVS: Regular rate and rhythm, normal S1 and S2, no gallops, no murmurs, no rubs ABDOMEN: Soft, nontender. No hepatosplenomegaly, normal bowel sounds, no guarding or rigidity. EXTREMITIES: No clubbing, no edema, no cyanosis, 2+ pulses and upper and lower extremities. MUSCULOSKELETAL: Muscle strength and tone normal. SPINE: No scoliosis or deformity SKIN: No rashes CENTRAL NERVOUS SYSTEM: Alert and oriented -3. No focal deficits, tone is normal in all 4 extremities. PSYCHIATRIC: Alert and oriented -3. Appropriate affect. Intact judgment and insight. - Labs CBC & Chem 7: 09/03/18 06:29 09/03/18 06:29 Labs: Abnormal Lab Results - Last 24 Hours (Table) 09/02/18 09/02/18 09/02/18 Range/Units 11:40 17:03 20:54 RBC (3.80-5.40) m/uL Hgb (11.4-16.0) gm/dL Hct (34.0-46.0) % MCHC (31.0-37.0) g/dL RDW (11.5-15.5) % Plt Count (150-450) k/uL BUN (7-17) mg/dL Glucose (74-99) mg/dL POC Glucose (mg/dL) 243 H 299 H 199 H (75-99) mg/dL Calcium (8.4-10.2) mg/dL 09/03/18 09/03/18 09/03/18 Range/Units 06:07 06:29 06:29 RBC 2.53 L (3.80-5.40) m/uL Hgb 7.5 L (11.4-16.0) gm/dL Hct 25.0 L (34.0-46.0) % MCHC 30.0 L (31.0-37.0) g/dL RDW 24.2 H (11.5-15.5) % Plt Count 53 L (150-450) k/uL BUN 24 H (7-17) mg/dL Glucose 231 H (74-99) mg/dL POC Glucose (mg/dL) 261 H (75-99) mg/dL Calcium 7.8 L (8.4-10.2) mg/dL Microbiology - Last 24 Hours (Table) 09/01/18 16:59 Urine Culture - Final Urine,Voided 09/01/18 10:45 Blood Culture - Preliminary Blood No Growth after 24 hours Assessment and Plan Plan: 1. Dyspnea with multifocal pulmonary infiltrates. Patient initially presented with a left lower lobe pneumonia and subsequently she developed bilateral pulmonary infiltrates which could be pneumonia progression versus interstitial edema/fluid. She continues to have a left lower lobe consolidation. She is short of breath. Nevertheless, despite the pulmonary abnormalities, she remains on room air oxygen with a pulse ox of 96%. No significant leukocytosis. No fever. No hemodynamic instability. 2 left lower lung pneumonia, community acquired, in the immunocompromised patient. The patient was treated and she was discharged home on oral Avelox 3 exacerbation of congestive heart failure with diastolic dysfunction 4. Chronic nonalcoholic liver cirrhosis patient is on the transplant list 5. Chronic anemia, related to iron deficiency and the patient was given IV iron during her last hospital stay. Iron level remains low. 6 Obesity 7 History of esophageal variceal banding 8 History of bowel resection/ hernia repair 9 thrombocytopenia secondary to above Plan: We'll continue with current dose of Lasix, patient is diuresing, maintaining negative fluid balance. No fever no chills, will continue with current antibi otic coverage, we'll obtain follow-up chest x-ray today. I performed a history & physical examination of the patient and discussed their management with my nurse practitioner, Deisi Martinez. I reviewed the nurse practitioner's note and agree with the documented findings and plan of care. Lung sounds are positive for crackles at bilateral lower extremities. The findings and the impression was discussed with the patient. I attest to the documentation by the nurse practitioner. Time with Patient: Less than 30
[2018-09-03 11:50] LABS: Glucose,Whole Blood 264 mg/dL (75-99)
--- NOTE | 2018-09-03 13:33 | XR ---
EXAMINATION TYPE: XR chest 2V DATE OF EXAM: 09/03/2018 COMPARISON: 09/02/2018 HISTORY: Shortness of breath and multifocal pneumonia. Follow-up exam. TECHNIQUE: Frontal and lateral views of the chest are obtained. FINDINGS: Persistent right apical airspace disease is seen that has somewhat masslike configuration. Slight interstitial prominence remains however there is improved aeration of the remainder the lungs . Cardia mediastinal silhouette is upper limits of normal size. No pleural effusion or pneumothorax. Osseous structures are grossly intact. Slight flattening of the diaphragms on the lateral view could relate to degree of inspiration or underlying COPD. IMPRESSION: Persistent right apical density may represent residual pneumonia although follow-up to r esolution is recommended or CT thorax to exclude underlying mass.
--- NOTE | 2018-09-03 14:56 | P.PN ---
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 The patient just was discharged from the hospital recently after she was admitted with a pneumonia and COPD exacerbation. She does have chronic shortness of breath but for the last few days, she has been experiencing worsening exertional dyspnea and she stated that she cannot walk more than a few feet before she stopped because of the shortness of breath. Beside the exertional dyspnea, she denies any orthopnea or PND. She stated that she did have severe bilateral lower extremities edema and on examination she does have at least 2+ pitting edema. No weight change. No symptoms of chest pain or chest discomfort. No dizziness or lightheadedness, heart racing or fluttering, or syncope. No fever or chills. No history of congestive heart failure in the past. She stated that she underwent a heart catheterization about a year ago at [facility] as a process before the liver transplant and that came in to be unremarkable. The echocardiogram from her prior admission in August 2018 revealed normal LV function with mild aortic stenosis, mild mitral regurgitation, and mild tricuspid regurgitation. The patient was given Lasix when she presented to the hospital and currently she is on Lasix at 40 mg twice a day. Also she is getting treated for pneumonia and for COPD exacerbation. 09/03/2018 Patient was seen and examined this morning, awake alert and oriented, in no acute distress. Continues to be on IV Lasix and diuresing well. She is in a negative balance. Down 2.3 kg in the past 24 hours. Her lower extremity edema is improving according to her, she still however continues to have trace to 1+ bilateral peripheral edema. She has also not been up ambulating much because she becomes extremely short of breath. Her urine and blood culture have not shown any growth. We will obtain a follow-up chest x-ray today and add some Aldactone to her medication regime. According to the patient, she had taken Aldactone at home in the past, she discontinued it because it smelled funny. But she does agree to taking it now. Objective - Vital Signs Vital signs: Vital Signs Temp 97.7 F 09/03/18 07:25 Pulse 75 09/03/18 11:57 Resp 18 09/03/18 11:47 BP 148/74 09/03/18 11:47 Pulse Ox 93 L 09/03/18 11:47 Intake & Output 09/02/18 09/03/18 09/03/18 18:59 06:59 18:59 Intake Total 960 670 Output Total 0853 405 0233 Balance -840 -500 -630 Weight 101.8 kg Intake: Intake, IV Titration 200 Amount Piperacillin-Tazobactam 3 200 .375 gm In Sodium Chloride 0.9% 100 ml @ 25 mls/hr IVPB Q8HR [facility] Rx# :[id number] Oral 960 470 Output: Urine 5995 316 1372 Other: Voiding Method Bedside Commode Toilet # Voids 2 1 - Exam GENERAL EXAM: Alert, pleasant, obese 68-year-old white female comfortable in no apparent distress. HEAD: Normocephalic/atraumatic. EYES: Normal reaction of pupils, equal size. Conjunctiva pink, sclera white. NOSE: Clear with pink turbinates. THROAT: No erythema or exudates. NECK: No masses, no JVD, no thyroid enlargement, no adenopathy. CHEST: No chest wall deformity. Symmetrical expansion. LUNGS: Equal air entry with coarse inspiratory crackles over bilateral lower lobes CVS: Regular rate and rhythm, normal S1 and S2, systolic murmur is heard ABDOMEN: Soft, nontender. No hepatosplenomegaly, normal bowel sounds, no guarding or rigidity. EXTREMITIES: No clubbing, trace to 1+ edema, no cyanosis, 2+ pulses and upper and lower extremities. MUSCULOSKELETAL: Muscle strength and tone normal. SPINE: No scoliosis or deformity SKIN: No rashes CENTRAL NERVOUS SYSTEM: Alert and oriented -3. No focal deficits, tone is normal in all 4 extremities. PSYCHIATRIC: Alert and oriented -3. Appropriate affect. Intact judgment and insight. - Labs CBC & Chem 7: 09/03/18 06:29 09/03/18 06:29 Labs: Abnormal Lab Results - Last 24 Hours (Table) 09/01/18 09/02/18 09/02/18 Range/Units 10:00 17:03 20:54 RBC (3.80-5.40) m/uL Hgb (11.4-16.0) gm/dL Hct (34.0-46.0) % MCHC (31.0-37.0) g/dL RDW (11.5-15.5) % Plt Count (150-450) k/uL BUN (7-17) mg/dL Glucose (74-99) mg/dL POC Glucose (mg/dL) 299 H 199 H (75-99) mg/dL Calcium (8.4-10.2) mg/dL Procalcitonin 1.00 H (0.02-0.09) ng/mL 09/03/18 09/03/18 09/03/18 Range/Units 06:07 06:29 06:29 RBC 2.53 L (3.80-5.40) m/uL Hgb 7.5 L (11.4-16.0) gm/dL Hct 25.0 L (34.0-46.0) % MCHC 30.0 L (31.0-37.0) g/dL RDW 24.2 H (11.5-15.5) % Plt Count 53 L (150-450) k/uL BUN 24 H (7-17) mg/dL Glucose 231 H (74-99) mg/dL POC Glucose (mg/dL) 261 H (75-99) mg/dL Calcium 7.8 L (8.4-10.2) mg/dL Procalcitonin (0.02-0.09) ng/mL 09/03/18 Range/Units 11:26 RBC (3.80-5.40) m/uL Hgb (11.4-16.0) gm/dL Hct (34.0-46.0) % MCHC (31.0-37.0) g/dL RDW (11.5-15.5) % Plt Count (150-450) k/uL BUN (7-17) mg/dL Glucose (74-99) mg/dL POC Glucose (mg/dL) 264 H (75-99) mg/dL Calcium (8.4-10.2) mg/dL Procalcitonin (0.02-0.09) ng/mL Microbiology - Last 24 Hours (Table) 09/01/18 10:45 Blood Culture - Preliminary Blood No Growth after 48 hours 05/26/19 16:59 Urine Culture - Final Urine,Voided Assessment and Plan Plan: Assessment #1 congestive heart failure exacerbation secondary to diastolic dysfunction, acute on chronic. The patient does have symptoms of right and left heart failure #2 end-stage liver disease currently the patient is on the liver transplant list #3 preserved left ventricular systolic function on recent echocardiogram #4 mild aortic stenosis on recent echocardiogram #5 chronic alcohol use #6 chronic anemia Plan Cardiology's perspective, we'll recommend to repeat a chest x-ray, we will also start the patient on Aldactone 25 mg daily from today. Continue IV Lasix for 24 hours. DNP note has been reviewed, I agree with a documented findings and plan of care. Patient was seen and examined.
[2018-09-03] MEDS: SPIRONOLACTONE 25 MG TAB PO SCH (15:00)
[2018-09-03] MEDS: LEVOFLOXACIN 750MG-D5W PMX 750 MG in DEXTROSE/WATER 1 150ML.BAG IVPB SCH (15:00)
[2018-09-03 16:53] LABS: Glucose,Whole Blood 319 mg/dL (75-99)
[2018-09-03] MEDS: MELATONIN 3 MG TABLET PO SCH (20:31)
[2018-09-03] MEDS: diphenhydrAMINE 25 MG CAP PO PRN (20:37)
[2018-09-03 20:42] LABS: Glucose,Whole Blood 285 mg/dL (75-99)
[2018-09-03] MEDS: PRAMIPEXOLE 0.25 MG TAB PO PRN (21:40)
[2018-09-04 07:18] LABS: Glucose,Whole Blood 249 mg/dL (75-99)
[2018-09-04] MEDS: IPRATROPIUM-ALBUTEROL 3 ML NEB INHALATION SCH ×4 (07:31→21:10)
[2018-09-04] MEDS: FUROSEMIDE 10 MG/ML 4 ML VIAL IV SCH ×2 (07:48→21:28)
[2018-09-04] MEDS: methylPREDNISolone SOD SUCCI 40 MG/ML 1 ML VIAL IV SCH ×2 (07:48→21:26)
[2018-09-04] MEDS: BENZONATATE 100 MG CAP PO SCH ×3 (07:48→21:28)
[2018-09-04] MEDS: SPIRONOLACTONE 25 MG TAB PO SCH (07:48)
[2018-09-04] MEDS: INSULIN ASPART (NovoLOG) 100 UNIT/ML VIAL SQ SCH ×8 (07:49→21:27)
[2018-09-04] MEDS: NYSTATIN 100,000 UNIT/ML SUSP 500,000 UNIT/5 ML CUP PO SCH ×4 (07:49→21:29)
[2018-09-04] MEDS: LACTULOSE 20 GM/30 ML CUP PO SCH ×3 (07:49→21:28)
[2018-09-04] MEDS: PROPRANOLOL 20 MG TAB PO SCH ×2 (07:50→21:29)
[2018-09-04] MEDS: OXYBUTYNIN CHLORIDE 5 MG TAB PO SCH (07:50)
[2018-09-04] MEDS: RIFAXIMIN 550 MG TABLET PO SCH ×2 (07:50→21:29)
[2018-09-04] MEDS: PIPERACILLIN-TAZOBACTAM 3.375 GM in SODIUM CHLORIDE 0.9% 100 ML IVPB SCH ×2 (08:09→17:03)
[2018-09-04 12:09] LABS: Glucose,Whole Blood 325 mg/dL (75-99)
--- NOTE | 2018-09-04 12:46 | P.PN ---
Subjective This is a pleasant 68 year old female seen and examined on the medical floor. She is currently being treated with IV lasix for exertional dsypnea secondary to heart failure and pneumonia. Currently maintained on lasix 40 mg IV BID, aldactone 25 mg daily and propanolol 20 mg BID. Chest xray yesterday revealed persistent right apical density possibly related to residual pneumonia with possibility of underlying mass, recommend CT follow up. Blood pressure 159/74 heart rate 80 afebrile maintaining oxygen saturation on room air. She is seen and examined laying flat resting comfortably in bed. She denies shortness of breath at rest however continues to feel mildly short of breath with exertion. She denies chest pain, dizziness, palpitations or diaphoresis. IV solu-medrol was added in addition to antibiotics per pulmonary care team y esterday. GENERAL: Well-appearing, well-nourished and in no acute distress. NECK: Supple without JVD or thyromegaly. LUNGS: Breath sounds clear to auscultation bilaterally. Respiration equal and unlabored. No wheezes, rales or rhonchi. HEART: Regular rate and rhythm with systolic ejection murmur at the base, no rubs or gallops. S1 and S2 heard. EXTREMITIES: Normal range of motion, 1+ bilateral lower extremity pitting edema. No clubbing or cyanosis. Peripheral pulses intact. ASSESSMENT Acute on chronic diastolic heart failure with symptoms of right and left heart failure Pneumonia Aortic stenosis, mild Chronic liver disease on transplant list History of esophageal varices s/p banding Chronic anemia Thrombocytopenia PLAN Continue aldactone and IV lasix for another 24 hours. Check electrolytes and kidney function in the morning. Nurse Practitioner note has been reviewed, I agree with a documented findings and plan of care. Patient was seen and examined. Objective - Vital Signs Vital signs: Vital Signs Temp 97.9 F 09/04/18 04:21 Pulse 80 09/04/18 07:46 Resp 20 09/04/18 04:21 BP 159/74 09/04/18 04:21 Pulse Ox 93 L 09/04/18 04:21 Intake & Output 09/03/18 09/04/18 09/04/18 18:59 06:59 18:59 Intake Total 1010 Output Total 1700 Balance -690 Intake: Intake, IV Titration 300 Amount Piperacillin-Tazobactam 3 300 .375 gm In Sodium Chloride 0.9% 100 ml @ 25 mls/hr IVPB Q8HR [facility] Rx# :[id number] Oral 710 Output: Urine 1700 Other: # Voids 2 - Labs CBC & Chem 7: 09/03/18 06:29 09/03/18 06:29 Labs: Abnormal Lab Results - Last 24 Hours (Table) 09/01/18 09/03/18 09/03/18 Range/Units 10:00 11:26 16:49 POC Glucose (mg/dL) 264 H 319 H (75-99) mg/dL Procalcitonin 1.00 H (0.02-0.09) ng/mL 09/03/18 09/04/18 Range/Units 20:41 06:56 POC Glucose (mg/dL) 285 H 249 H (75-99) mg/dL Procalcitonin (0.02-0.09) ng/mL Microbiology - Last 24 Hours (Table) 09/01/18 10:45 Blood Culture - Preliminary Blood No Growth after 48 hours
[2018-09-04] MEDS ORDERED: FUROSEMIDE 40 MG TAB PO SCH (16:00)
[2018-09-04] MEDS: LEVOFLOXACIN 750 MG TAB PO SCH (17:03)
[2018-09-04 17:09] LABS: Glucose,Whole Blood 296 mg/dL (75-99)
--- NOTE | 2018-09-04 17:17 | P.PN ---
Subjective Progress Note Date: 09/04/18 Principal diagnosis: Dyspnea related to pneumonia, and congestive heart failure This is 68-year-old white female patient with past medical history of nonalcoholic liver cirrhosis and is on the liver transplant list, lifetime nonsmoker, chronic anemia, history of esophageal variceal banding, who presented to the hospital on 08/27/2018 with complaints of worsening shortness of breath and fever. Patient states she has been chronically short of breath for a period of over a year, but her dyspnea has become progressively worse 's 2 AM on 08/27/2018, she developed a dry cough and a fever, she was wheezing. Patient did have a one episode of nonbloody nonbilious emesis on the way to the hospital, no abdominal pain or diarrhea, she denied any sick contacts. D-dimer was elevated, and CT angios was completed and revealed no acute pulmonary embolism however it did show atypical mass in the left lung and there was a consolidation consistent with pneumonia. Patient was started on IV antibiotics in the form of Zithromax and Rocephin, and later Rocephin was switched to Zosyn. The patient was treated with and she was discharged home on Avelox. knowing that the FU CXR was showing improvement in the consolidation. The patient went home and she started to have the attack or shortness of breath again and she could not breathe. She called the ambulance and she came into the ER for further urology management. She said that she's still coughing was not able to get anything up. She does not complain of any fever or chills, she does not complain any abdominal pain, no nausea and vomiting, no diarrhea constipation. Patient feels that she is swollen all over including her lower extremities and her belly. ER course-his vitals were stable and she was saturating 98% on 2 L. Labwork was done which showed WBC 10.8 hemoglobin 7.8 platelets 79 sodium 136 potassium 5.0 bun 28 creatinine 0.69 lactic acid is 2.1 AST 95 ALT 49 alk phos 224 and patient was given breathing treatments, IV fluids, Zosyn and Levaquin and admitted to the hospitalist service a further admission and management. Review of the CXR showed a multifocal infiltrate. The patient was given a dose of lasix in the ED. She had a echo in 05/2018 and she was found to have a normal EF of 55%. Clinically she is feeling better as the patient is being diuresis with IV Lasix. Chest x-ray from today is showing some stable findings without any interval worsening in the pulmonary infiltrates. The patient remains on room air oxygen with a pulse ox of 96%. On 08/26/2018 patient seen in follow-up on selective care unit, she is awake and alert, in no acute distress, she remains on IV Lasix, she is diuresing, she is in negative fluid balance. She is down 2.3 kg in the last 24 hours. Lower extremity edema is improving. The patient still complaining of being dyspneic with exertion. No fever or chills. Urine and blood cultures showed no growth, patient is not bringing up any sputum, lung sounds are positive for coarse rales at bilateral lower lobes, still has a residual 1+ pitting edema in lower e xtremities. Fever or chills. She is on Levaquin and Zosyn for antibiotic coverage. And IV Solu-Medrol 40 mg every 12 hours. We'll obtain follow-up chest x-ray today. On 09/04/2018 patient seen in follow-up on medical surgical floor. She is awake and alert, in no acute distress, denies any worsening dyspnea, room air pulse ox is 94%, no complaints of chest pain, cough or congestion, patient is afebrile. Urine and blood culture showed no growth. Remains on IV Lasix at 40 mg every 12 hours. Maintaining negative fluid balance, lower extremity edema is improving, patient is down 2.3 kg in the last 24 hours. Antibiotic coverage in the form of Levaquin and Zosyn, ration has been unable to produce any sputum sample for us. Yesterday's chest x-ray was reviewed and showed right apical density that could represent residual pneumonia, and resolved left lower lobe infiltrate. Objective - Vital Signs Vital signs: Vital Signs Temp 98.2 F 09/04/18 13:26 Pulse 78 09/04/18 16:33 Resp 18 09/04/18 13:26 BP 173/70 09/04/18 13:26 Pulse Ox 94 L 09/04/18 13:26 Intake & Output 09/03/18 09/04/18 09/04/18 18:59 06:59 18:59 Intake Total 1010 Output Total 1700 Balance -690 Intake: Intake, IV Titration 300 Amount Piperacillin-Tazobactam 3 300 .375 gm In Sodium Chloride 0.9% 100 ml @ 25 mls/hr IVPB Q8HR [facility] Rx# :[id number] Oral 710 Output: Urine 1700 Other: # Voids 2 1 - Exam GENERAL EXAM: Alert, pleasant, obese 68-year-old white female comfortable in no apparent distress. HEAD: Normocephalic/atraumatic. EYES: Normal reaction of pupils, equal size. Conjunctiva pink, sclera white. NOSE: Clear with pink turbinates. THROAT: No erythema or exudates. NECK: No masses, no JVD, no thyroid enlargement, no adenopathy. CHEST: No chest wall deformity. Symmetrical expansion. LUNGS: Equal air entry with coarse inspiratory crackles over bilateral lower lobes CVS: Regular rate and rhythm, normal S1 and S2, no gallops, no murmurs, no rubs ABDOMEN: Soft, nontender. No hepatosplenomegaly, normal bowel sounds, no guarding or rigidity. EXTREMITIES: No clubbing, no edema, no cyanosis, 2+ pulses and upper and lower extremities. MUSCULOSKELETAL: Muscle strength and tone normal. SPINE: No scoliosis or deformity SKIN: No rashes CENTRAL NERVOUS SYSTEM: Alert and oriented -3. No focal deficits, tone is normal in all 4 extremities. PSYCHIATRIC: Alert and oriented -3. Appropriate affect. Intact judgment and insight. - Labs CBC & Chem 7: 09/03/18 06:29 09/03/18 06:29 Labs: Abnormal Lab Results - Last 24 Hours (Table) 09/03/18 09/04/18 09/04/18 Range/Units 20:41 06:56 11:57 POC Glucose (mg/dL) 285 H 249 H 325 H (75-99) mg/dL 09/04/18 Range/Units 16:54 POC Glucose (mg/dL) 296 H (75-99) mg/dL Microbiology - Last 24 Hours (Table) 09/01/18 10:45 Blood Culture - Preliminary Blood No Growth after 72 hours Assessment and Plan Plan: 1. Dyspnea with multifocal pulmonary infiltrates. Patient initially presented with a left lower lobe pneumonia and subsequently she developed bilateral pulmonary infiltrates which could be pneumonia progression versus interstitial edema/fluid. She continues to have a left lower lobe consolidation. She is short of breath. Nevertheless, despite the pulmonary abnormalities, she remains on room air oxygen with a pulse ox of 96%. No significant leukocytosis. No fever. No hemodynamic instability. 2 left lower lung pneumonia, community acquired, in the immunocompromised patient. The patient was treated and she was discharged home on oral Avelox 3 exacerbation of congestive heart failure with diastolic dysfunction 4. Chronic nonalcoholic liver cirrhosis patient is on the transplant list 5. Chronic anemia, related to iron deficiency and the patient was given IV iron during her last hospital stay. Iron level remains low. 6 Obesity 7 History of esophageal variceal banding 8 History of bowel resection/ hernia repair 9 thrombocytopenia secondary to above Plan: Continue current antibiotic coverage, we'll obtain follow-up chest x-ray tomorrow, if it shows improvement will consider discharge home in the next 24 hours, it shows worsening findings may consider Kostka be with BAL. Clinically patient is improving, yesterday chest x-ray showed resolved left lower lobe infiltrate with residual right upper lobe infiltrate. No fever or chills, cough or congestion, no complex of chest pain. Continues to diurese, fluid volume sta tus is improving. I performed a history & physical examination of the patient and discussed their management with my nurse practitioner, Deisi Martinez. I reviewed the nurse practitioner's note and agree with the documented findings and plan of care. Lung sounds are positive for crackles at bilateral lower extremities. The findings and the impression was discussed with the patient. I attest to the documentation by the nurse practitioner. Time with Patient: Less than 30
[2018-09-04 20:35] LABS: Glucose,Whole Blood 304 mg/dL (75-99)
[2018-09-04] MEDS: MELATONIN 3 MG TABLET PO SCH (21:28)
--- NOTE | 2018-09-04 23:39 | P.PN ---
Subjective Progress Note Date: 09/03/18 Principal diagnosis: Multifocal pneumonia This very pleasant 68-year-old female with shortness of breath. Patient was discharged yesterday after being diagnosed and treated for COPD exacerbation. She said that she went home this morning she started to have the attack or shortness of breath again and she could not breathe. She called the ambulance and she came into the ER for further urology management. She said that she's still coughing was not able to get anything up. She does not complain of any fever or chills, she does not complain any abdominal pain, no nausea and vomiting, no diarrhea constipation. Patient feels that she is swollen all over including her lower extremities and her belly. On 09/03/2018 Patient is still dyspneic with ambulation and also at rest. Continued on IV Lasix. Aldactone was added. Repeat chest x-ray showed persistent right apical density may represent residual pneumonia although follow-up to resolution is recommended. No fever no chills. Cultures showed no growth. Lower extremities swelling is improving. Currently on antibiotics Levaquin and Zosyn. IV steroids and breathing treatments. No complaints of chest pain. Cardiology and pulmonary is following. Current medications reviewed. Objective - Vital Signs Vital signs: Vital Signs Temp 98 F 09/03/18 20:00 Pulse 85 09/03/18 20:00 Resp 18 09/03/18 20:00 BP 160/83 09/03/18 20:00 Pulse Ox 95 09/03/18 20:00 Intake & Output 09/03/18 09/03/18 09/04/18 06:59 18:59 06:59 Intake Total 1010 Output Total 500 1700 Balance -500 -690 Weight 101.8 kg Intake: Intake, IV Titration 300 Amount Piperacillin-Tazobactam 3 300 .375 gm In Sodium Chloride 0.9% 100 ml @ 25 mls/hr IVPB Q8HR [facility] Rx# :[id number] Oral 710 Output: Urine 500 1700 Other: Voiding Method Toilet # Voids 1 - Exam PHYSICAL EXAMINATION: Patient is lying in the bed comfortably, no acute distress, awake alert and oriented.. HEENT: Normocephalic. Neck is supple. Pupils reactive. Nostrils clear. Oral cavity is moist. Ears reveal no drainage. Neck reveals no JVD, carotid bruits, or thyromegaly. CHEST EXAMINATION: Trachea is central. Symmetrical expansion. Scattered rhonchi and crackles. CARDIAC: Normal S1, S2 with no gallops. No murmurs ABDOMEN: Soft. Bowel sounds normal. No organomegaly. No abdominal bruits. Extremities: reveal no edema. No clubbing or cyanosis Neurologically awake, alert, oriented x3 with well-coordinated movements. No focal deficits noted Skin: No rash or skin lesions. Psychiatric: Coperative. Nonsuicidal Musculoskeletal: No joint swelling or deformity. Normal range of motion. - Labs CBC & Chem 7: 09/03/18 06:29 09/03/18 06:29 Labs: Abnormal Lab Results - Last 24 Hours (Table) 09/01/18 09/03/18 09/03/18 Range/Units 10:00 06:07 06:29 RBC 2.53 L (3.80-5.40) m/uL Hgb 7.5 L (11.4-16.0) gm/dL Hct 25.0 L (34.0-46.0) % MCHC 30.0 L (31.0-37.0) g/dL RDW 24.2 H (11.5-15.5) % Plt Count 53 L (150-450) k/uL BUN (7-17) mg/dL Glucose (74-99) mg/dL POC Glucose (mg/dL) 261 H (75-99) mg/dL Calcium (8.4-10.2) mg/dL Procalcitonin 1.00 H (0.02-0.09) ng/mL 09/03/18 09/03/18 09/03/18 Range/Units 06:29 11:26 16:49 RBC (3.80-5.40) m/uL Hgb (11.4-16.0) gm/dL Hct (34.0-46.0) % MCHC (31.0-37.0) g/dL RDW (11.5-15.5) % Plt Count (150-450) k/uL BUN 24 H (7-17) mg/dL Glucose 231 H (74-99) mg/dL POC Glucose (mg/dL) 264 H 319 H (75-99) mg/dL Calcium 7.8 L (8.4-10.2) mg/dL Procalcitonin (0.02-0.09) ng/mL 09/03/18 Range/Units 20:41 RBC (3.80-5.40) m/uL Hgb (11.4-16.0) gm/dL Hct (34.0-46.0) % MCHC (31.0-37.0) g/dL RDW (11.5-15.5) % Plt Count (150-450) k/uL BUN (7-17) mg/dL Glucose (74-99) mg/dL POC Glucose (mg/dL) 285 H (75-99) mg/dL Calcium (8.4-10.2) mg/dL Procalcitonin (0.02-0.09) ng/mL Microbiology - Last 24 Hours (Table) 09/01/18 10:45 Blood Culture - Preliminary Blood No Growth after 48 hours 09/01/18 16:59 Urine Culture - Final Urine,Voided Assessment and Plan Assessment: Dyspnea secondary to multifocal pneumonia Left lower lung pneumonia community-acquired Acute on chronic CHF with diastolic dysfunction Nonalcoholic liver cirrhosis currently on transplant list at [facility] Chronic anemia/iron deficiency anemia Morbid obesity BMI 36.2 History of esophageal variceal bleeding status post banding Thrombocytopenia secondary to liver cirrhosis DVT prophylaxis with SCDs due to thrombocytopenia Plan: Patient will be continued on antibiotics in the form of Levaquin and Zosyn. Continue with IV steroids and breathing treatments. Continue with IV Lasix and Aldactone was added. Cardiology and pulmonary is following. further recommendations based on the clinical course. Time with Patient: Greater than 30
--- NOTE | 2018-09-04 23:42 | P.PN ---
Subjective Progress Note Date: 09/04/18 Principal diagnosis: Multifocal pneumonia This very pleasant 68-year-old female with shortness of breath. Patient was discharged yesterday after being diagnosed and treated for COPD exacerbation. She said that she went home this morning she started to have the attack or shortness of breath again and she could not breathe. She called the ambulance and she came into the ER for further urology management. She said that she's still coughing was not able to get anything up. She does not complain of any fever or chills, she does not complain any abdominal pain, no nausea and vomiting, no diarrhea constipation. Patient feels that she is swollen all over including her lower extremities and her belly. On 09/03/2018 Patient is still dyspneic with ambulation and also at rest. Continued on IV Lasix. Aldactone was added. Repeat chest x-ray showed persistent right apical density may represent residual pneumonia although follow-up to resolution is recommended. No fever no chills. Cultures showed no growth. Lower extremities swelling is improving. Currently on antibiotics Levaquin and Zosyn. IV steroids and breathing treatments. No complaints of chest pain. Cardiology and pulmonary is following. 09/04/2018 Patient says that her breathing status is slightly better compared to today. Patient is able to ambulate to the bathroom but having shortness of breath. Currently being continued on IV Lasix twice daily along with Aldactone. Leg swelling is much improved. Continued on antibiotics in the form of Levaquin and Zosyn. Continued on steroids and breathing treatments. No fever no chills. Clinically improving. Saturating well on room air. Anticipate discharge in next 1-2 days. Current medications reviewed. Objective - Vital Signs Vital signs: Vital Signs Temp 97.1 F L 09/04/18 20:35 Pulse 76 09/04/18 21:20 Resp 18 09/04/18 20:35 BP 154/63 09/04/18 20:35 Pulse Ox 93 L 09/04/18 20:35 Intake & Output 09/04/18 09/04/18 09/05/18 06:59 18:59 06:59 Other: # Voids 2 1 1 - Exam PHYSICAL EXAMINATION: Patient is lying in the bed comfortably, no acute distress, awake alert and oriented.. HEENT: Normocephalic. Neck is supple. Pupils reactive. Nostrils clear. Oral cavity is moist. Ears reveal no drainage. Neck reveals no JVD, carotid bruits, or thyromegaly. CHEST EXAMINATION: Trachea is central. Symmetrical expansion. Scattered rhonchi and crackles. CARDIAC: Normal S1, S2 with no gallops. No murmurs ABDOMEN: Soft. Bowel sounds normal. No organomegaly. No abdominal bruits. Extremities: reveal no edema. No clubbing or cyanosis Neurologically awake, alert, oriented x3 with well-coordinated movements. No focal deficits noted Skin: No rash or skin lesions. Psychiatric: Coperative. Nonsuicidal Musculoskeletal: No joint swelling or deformity. Normal range of motion. - Labs CBC & Chem 7: 09/03/18 06:29 09/03/18 06:29 Labs: Abnormal Lab Results - Last 24 Hours (Table) 09/04/18 09/04/18 09/04/18 Range/Units 06:56 11:57 16:54 POC Glucose (mg/dL) 249 H 325 H 296 H (75-99) mg/dL 09/04/18 Range/Units 20:34 POC Glucose (mg/dL) 304 H (75-99) mg/dL Microbiology - Last 24 Hours (Table) 09/01/18 10:45 Blood Culture - Preliminary Blood No Growth after 72 hours Assessment and Plan Assessment: Dyspnea secondary to multifocal pneumonia Left lower lung lobe and right apical pneumonia. 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 Continue with IV steroids and breathing treatments. Continue with IV Lasix and Aldactone was added. Cardiology and pulmonary is following. further recommendations based on the clinical course. Time with Patient: Greater than 30
[2018-09-05] MEDS: PIPERACILLIN-TAZOBACTAM 3.375 GM in SODIUM CHLORIDE 0.9% 100 ML IVPB SCH ×2 (00:39→08:10)
[2018-09-05] MEDS: LACTULOSE 20 GM/30 ML CUP PO SCH ×3 (07:06→20:35)
[2018-09-05] MEDS: OXYBUTYNIN CHLORIDE 5 MG TAB PO SCH (07:06)
[2018-09-05 07:27] LABS: Glucose,Whole Blood 371 mg/dL (75-99)
[2018-09-05] MEDS: IPRATROPIUM-ALBUTEROL 3 ML NEB INHALATION SCH ×4 (08:00→20:21)
[2018-09-05] MEDS: BENZONATATE 100 MG CAP PO SCH ×3 (08:10→20:54)
[2018-09-05] MEDS: SPIRONOLACTONE 25 MG TAB PO SCH (08:10)
[2018-09-05] MEDS: methylPREDNISolone SOD SUCCI 40 MG/ML 1 ML VIAL IV SCH (08:11)
[2018-09-05] MEDS: FUROSEMIDE 10 MG/ML 4 ML VIAL IV SCH ×3 (08:11→23:10)
[2018-09-05] MEDS: PROPRANOLOL 20 MG TAB PO SCH ×2 (08:11→20:54)
[2018-09-05] MEDS: NYSTATIN 100,000 UNIT/ML SUSP 500,000 UNIT/5 ML CUP PO SCH ×4 (08:12→20:54)
[2018-09-05] MEDS: INSULIN ASPART (NovoLOG) 100 UNIT/ML VIAL SQ SCH ×8 (08:12→20:55)
[2018-09-05] MEDS: RIFAXIMIN 550 MG TABLET PO SCH ×2 (08:12→20:54)
--- NOTE | 2018-09-05 08:23 | XR ---
EXAMINATION TYPE: XR chest 2V DATE OF EXAM: 09/05/2018 COMPARISON: 08/26/2018 INDICATION: Pneumonia TECHNIQUE: Frontal and lateral views of the chest are obtained. FINDINGS: The heart size is normal. The pulmonary vasculature is normal. The right apical infiltrate is resolving. Mild residual remains.. IMPRESSION: 1. Resolving right apical pneumonia with mild remaining residual.
[2018-09-05 09:30] LABS: Anisocytosis Marked; Basophils % (A) 0 %; Eosinophils % (A) 0 %; HCT 27.9 % (34.0-46.0); HGB 8.3 gm/dL (11.4-16.0); Hypochromasia Marked; Lymphocytes # (A) 0.8 k/uL (1.0-4.8); Lymphocytes % (A) 9 %; MCH 29.8 pg (25.0-35.0); MCHC 29.6 g/dL (31.0-37.0); MCV 100.7 fL (80.0-100.0); Macrocytosis Marked; Mean Platelet Volume 11.5; Monocytes # (A) 0.5 k/uL (0-1.0); Monocytes % (A) 6 %; Neutrophils # (A) 7.1 k/uL (1.3-7.7); Neutrophils % (A) 83 %; RBC 2.77 m/uL (3.80-5.40); WBC 8.7 k/uL (3.8-10.6)
[2018-09-05 09:31] LABS: Calcium 7.8 mg/dL (8.4-10.2); Potassium 3.4 mmol/L (3.5-5.1)
[2018-09-05 09:49] LABS: Platelet Count 65 k/uL (150-450)
[2018-09-05 10:37] LABS: Large Platelets Present; Poikilocytosis (M) Present; Polychromasia Present; Target Cells Present
[2018-09-05 11:54] LABS: Glucose,Whole Blood 361 mg/dL (75-99)
[2018-09-05] MEDS ORDERED: POTASSIUM CHLORIDE ER 20 MEQ TAB.ER PO STA (13:06)
--- NOTE | 2018-09-05 13:06 | P.PN ---
Subjective Progress Note Date: 09/05/18 Principal diagnosis: Multilobar pneumonia. This is 68-year-old white female patient with past medical history of nonalcoholic liver cirrhosis and is on the liver transplant list, lifetime nonsmoker, chronic anemia, history of esophageal variceal banding, who presented to the hospital on 08/27/2018 with complaints of worsening shortness of breath and fever. Patient states she has been chronically short of breath for a period of over a year, but her dyspnea has become progressively worse 's 2 AM on 08/27/2018, she developed a dry cough and a fever, she was wheezing. Patient did have a one episode of nonbloody nonbilious emesis on the way to the hospital, no abdominal pain or diarrhea, she denied any sick contacts. D-dimer was elevated, and CT angios was completed and revealed no acute pulmonary embolism however it did show atypical mass in the left lung and there was a consolidation consistent with pneumonia. Patient was started on IV antibiotics in the form of Zithromax and Rocephin, and later Rocephin was switched to Zosyn. The patient was treated with and she was discharged home on Avelox. knowing that the FU CXR was showing improvement in the consolidation. The patient went home and she started to have the attack or shortness of breath again and she co uld not breathe. She called the ambulance and she came into the ER for further urology management. She said that she's still coughing was not able to get anything up. She does not complain of any fever or chills, she does not complain any abdominal pain, no nausea and vomiting, no diarrhea constipation. Patient feels that she is swollen all over including her lower extremities and her belly. ER course-his vitals were stable and she was saturating 98% on 2 L. Labwork was done which showed WBC 10.8 hemoglobin 7.8 platelets 79 sodium 136 potassium 5.0 bun 28 creatinine 0.69 lactic acid is 2.1 AST 95 ALT 49 alk phos 224 and patient was given breathing treatments, IV fluids, Zosyn and Levaquin and admitted to the hospitalist service a further admission and management. Review of the CXR sh owed a multifocal infiltrate. The patient was given a dose of lasix in the ED. She had a echo in 05/2018 and she was found to have a normal EF of 55%. Clinically she is feeling better as the patient is being diuresis with IV Lasix. Chest x-ray from today is showing some stable findings without any interval worsening in the pulmonary infiltrates. The patient remains on room air oxygen with a pulse ox of 96%. On 08/26/2018 patient seen in follow-up on selective care unit, she is awake and alert, in no acute distress, she remains on IV Lasix, she is diuresing, she is in negative fluid balance. She is down 2.3 kg in the last 24 hours. Lower extremity edema is improving. The patient still complaining of being dyspneic with exertion. No fever or chills. Urine and blood cultures showed no growth, patient is not bringing up any sputum, lung sounds are positive for coarse rales at bilateral lower lobes, still has a residual 1+ pitting edema in lower extremities. Fever or chills. She is on Levaquin and Zosyn for antibiotic coverage. And IV Solu-Medrol 40 mg every 12 hours. We'll obtain follow-up chest x-ray today. On 09/04/2018 patient seen in follow-up on medical surgical floor. She is awake and alert, in no acute distress, denies any worsening dyspnea, room air pulse ox is 94%, no complaints of chest pain, cough or congestion, patient is afebrile. Urine and blood culture showed no growth. Remains on IV Lasix at 40 mg every 12 hours. Maintaining negative fluid balance, lower extremity edema is improving, patient is down 2.3 kg in the last 24 hours. Antibiotic coverage in the form of Levaquin and Zosyn, ration has been unable to produce any sputum sample for us. Yesterday's chest x-ray was reviewed and showed right apical density that could represent residual pneumonia, and resolved left lower lobe infiltrate. The patient is seen today 09/05/2018 in follow-up on the regular medical floor. She is currently awake and alert in no acute distress. Resting comfortably in bed. On room air. Denies any worsening shortness of breath, cough or congestion. Today's chest x-ray shows improved right apical infiltrate. Blood and urine cultures reveal no growth. White count 8.7. Hemoglobin 8.3. Creatinine 0.85. She is complaining of some abdominal fullness. IV diuretics initiated. On Aldactone. She remains on bronchodilators, Tessalon Perles, Solu-Medrol. Antibiotics in the form of Zosyn and Levaquin. Objective - Vital Signs Vital signs: Vital Signs Temp 97.4 F L 09/05/18 05:15 Pulse 76 09/05/18 11:33 Resp 16 09/05/18 07:48 BP 146/87 09/05/18 05:15 Pulse Ox 94 L 09/05/18 05:15 Intake & Output 09/04/18 09/05/18 09/05/18 18:59 06:59 18:59 Weight 99.7 kg Other: Voiding Method Toilet # Voids 1 1 - Exam GENERAL EXAM: Alert, active, comfortable in no apparent distress. On room air. HEAD: Normocephalic. EYES: Normal reaction of pupils, equal size. NOSE: Clear with pink turbinates. THROAT: No erythema or exudates. NECK: No masses, no JVD. CHEST: No chest wall deformity. LUNGS: Equal air entry with crackles in the bilateral posterior bases. CVS: S1 and S2 normal with no audible murmur, regular rhythm. ABDOMEN: Abdominal distention with slight fluid wave, normal bowel sounds, no guarding or rigidity. SPINE: No scoliosis or deformity SKIN: No rashes CENTRAL NERVOUS SYSTEM: No focal deficits, tone is normal in all 4 extremities. EXTREMITIES: There is no peripheral edema. No clubbing, no cyanosis. Peripheral pulses are intact. - Labs CBC & Chem 7: 09/05/18 08:42 09/05/18 08:42 Labs: Abnormal Lab Results - Last 24 Hours (Table) 09/04/18 09/04/18 09/05/18 Range/Units 16:54 20:34 07:22 RBC (3.80-5.40) m/uL Hgb (11.4-16.0) gm/dL Hct (34.0-46.0) % MCV (80.0-100.0) fL MCHC (31.0-37.0) g/dL RDW (11.5-15.5) % Plt Count (150-450) k/uL Lymphocytes # (1.0-4.8) k/uL Macrocytosis Sodium (137-145) mmol/L Potassium (3.5-5.1) mmol/L Carbon Dioxide (22-30) mmol/L BUN (7-17) mg/dL Glucose (74-99) mg/dL POC Glucose (mg/dL) 296 H 304 H 371 H (75-99) mg/dL Calcium (8.4-10.2) mg/dL 09/05/18 09/05/18 09/05/18 Range/Units 08:42 08:42 11:51 RBC 2.77 L (3.80-5.40) m/uL Hgb 8.3 L (11.4-16.0) gm/dL Hct 27.9 L (34.0-46.0) % MCV 100.7 H (80.0-100.0) fL MCHC 29.6 L (31.0-37.0) g/dL RDW 26.0 H (11.5-15.5) % Plt Count 65 L (150-450) k/uL Lymphocytes # 0.8 L (1.0-4.8) k/uL Macrocytosis Marked A Sodium 136 L (137-145) mmol/L Potassium 3.4 L (3.5-5.1) mmol/L Carbon Dioxide 33 H (22-30) mmol/L BUN 31 H (7-17) mg/dL Glucose 328 H (74-99) mg/dL POC Glucose (mg/dL) 361 H (75-99) mg/dL Calcium 7.8 L (8.4-10.2) mg/dL Microbiology - Last 24 Hours (Table) 09/01/18 10:45 Blood Culture - Preliminary Blood No Growth after 96 hours Assessment and Plan Assessment: Impression: 1. Dyspnea with multifocal pulmonary infiltrates. Patient initially presented with a left lower lobe pneumonia and subsequently she developed bilateral pulmonary infiltrates which could be pneumonia progression versus interstitial edema/fluid. Today's chest x-ray reveals resolving right apical pneumonia with mild remaining residual 2 left lower lung pneumonia, community acquired, in the immunocompromised patient. The patient was treated and she was discharged home on oral Avelox 3 exacerbation of congestive heart failure with diastolic dysfunction 4. Chronic nonalcoholic liver cirrhosis patient is on the transplant list 5. Chronic anemia, related to iron deficiency and the patient was given IV iron during her last hospital stay. Iron level remains low. 6 Obesity 7 History of esophageal variceal banding 8 History of bowel resection/ hernia repair 9 thrombocytopenia secondary to above Plan: The patient was seen and evaluated by Dr. Clark. Chest x-ray and labs reviewed. She is improved from the pulmonary standpoint. Maintaining good O2 saturations in the 90s on room air. Continue the current treatment plan. Continue to diurese the patient. We'll continue to follow. I, the cosigning physician, performed a history & physical examination of the patient. Lungs sounds with few scattered rhonchi. Maintaining good O2 saturations in the 90s on room air. I discussed the assessment and plan of care with my nurse practitioner, Nicolasa Carroll. I attest to the above note as dictated by her.
--- NOTE | 2018-09-05 13:33 | P.PN ---
Subjective This is a pleasant 68 year old female seen and examined on the medical floor. She is currently being treated with IV lasix for exertional dsypnea secondary to heart failure and pneumonia. Currently maintained on lasix 40 mg IV BID, aldactone 25 mg daily and propanolol 20 mg BID. Chest xray from this morning reveals resolving right apical pneumonia with mild remaining residual. Laboratory data reviewed, WBC 8.7, hemoglobin 8.3, 65, sodium 136, potassium 3.4, creatinine 0.85. Blood pressure 146/87 heart rate 77 afebrile maintaining oxygen saturation on room air. Patient was seen and examined sitting up in bed. She continues to complain of shortness of breath with exertion. She states just walking to the bathroom she is extremely winded and exhausted. She also is noticing increasing abdominal girth and states her clothing is visiting her much tighter than it was yesterday. Her weight has fluctuated quite a bit since admi ssion unclear of accuracy. She is maintaining a negative fluid balance. GENERAL: Well-appearing, well-nourished and in no acute distress. NECK: Supple without JVD or thyromegaly. LUNGS: Breath sounds clear to auscultation bilaterally. Respiration equal and unlabored. No wheezes, rales or rhonchi. HEART: Regular rate and rhythm with systolic ejection murmur at the base, no rubs or gallops. S1 and S2 heard. EXTREMITIES: Normal range of motion, trace bilateral lower extremity pitting edema. No clubbing or cyanosis. Peripheral pulses intact. ASSESSMENT Acute on chronic diastolic heart failure with symptoms of right and left heart failure Pneumonia Aortic stenosis, mild Chronic liver disease on transplant list History of esophageal varices s/p banding Chronic anemia Thrombocytopenia PLAN Increase lasix to TID and continue aldactone. Check electrolytes and kidney function in the morning. Ultrasound of the abdomen for ascites. We will continue to follow and make recommendations accordingly. Nurse Practitioner note has been reviewed, I agree with a documented findings and plan of care. Patient was seen and examined. Objective - Vital Signs Vital signs: Vital Signs Temp 97.4 F L 09/05/18 05:15 Pulse 76 09/05/18 11:33 Resp 16 09/05/18 07:48 BP 146/87 09/05/18 05:15 Pulse Ox 94 L 09/05/18 05:15 Intake & Output 09/04/18 09/05/18 09/05/18 18:59 06:59 18:59 Weight 99.7 kg Other: Voiding Method Toilet # Voids 1 1 - Labs CBC & Chem 7: 09/05/18 08:42 09/05/18 08:42 Labs: Abnormal Lab Results - Last 24 Hours (Table) 09/04/18 09/04/18 09/05/18 Range/Units 16:54 20:34 07:22 RBC (3.80-5.40) m/uL Hgb (11.4-16.0) gm/dL Hct (34.0-46.0) % MCV (80.0-100.0) fL MCHC (31.0-37.0) g/dL RDW (11.5-15.5) % Plt Count (150-450) k/uL Lymphocytes # (1.0-4.8) k/uL Macrocytosis Sodium (137-145) mmol/L Potassium (3.5-5.1) mmol/L Carbon Dioxide (22-30) mmol/L BUN (7-17) mg/dL Glucose (74-99) mg/dL POC Glucose (mg/dL) 296 H 304 H 371 H (75-99) mg/dL Calcium (8.4-10.2) mg/dL 09/05/18 09/05/18 09/05/18 Range/Units 08:42 08:42 11:51 RBC 2.77 L (3.80-5.40) m/uL Hgb 8.3 L (11.4-16.0) gm/dL Hct 27.9 L (34.0-46.0) % MCV 100.7 H (80.0-100.0) fL MCHC 29.6 L (31.0-37.0) g/dL RDW 26.0 H (11.5-15.5) % Plt Count 65 L (150-450) k/uL Lymphocytes # 0.8 L (1.0-4.8) k/uL Macrocytosis Marked A Sodium 136 L (137-145) mmol/L Potassium 3.4 L (3.5-5.1) mmol/L Carbon Dioxide 33 H (22-30) mmol/L BUN 31 H (7-17) mg/dL Glucose 328 H (74-99) mg/dL POC Glucose (mg/dL) 361 H (75-99) mg/dL Calcium 7.8 L (8.4-10.2) mg/dL Microbiology - Last 24 Hours (Table) 09/01/18 10:45 Blood Culture - Preliminary Blood No Growth after 96 hours
--- NOTE | 2018-09-05 14:19 | US ---
EXAMINATION TYPE: US abdomen limited DATE OF EXAM: 09/05/2018 COMPARISON: NONE CLINICAL HISTORY: assess for ascites. Ascites check, exam done portable. Small amount of abdominal ascites seen in all 4 quadrants, largest pocket in RLQ measuring 3.8cm. IMPRESSION: 1. Ascites present all 4 quadrants
--- NOTE | 2018-09-05 15:47 | P.PN ---
Subjective 68-year-old female with shortness of breath. Patient was discharged yesterday after being diagnosed and treated for COPD exacerbation. She said that she went home this morning she started to have the attack or shortness of breath again and she could not breathe. She called the ambulance and she came into the ER for further urology management. She said that she's still coughing was not able to get anything up. She does not complain of any fever or chills, she does not complain any abdominal pain, no nausea and vomiting, no diarrhea constipation. Patient feels that she is swollen all over including her lower extremities and her belly. On 09/03/2018 Patient is still dyspneic with ambulation and also at rest. Continued on IV Lasix. Aldactone was added. Repeat chest x-ray showed persistent right apical density may represent residual pneumonia although follow-up to resolution is recommended. No fever no chills. Cultures showed no growth. Lower extremities swelling is improving. Currently on antibiotics Levaquin and Zosyn. IV steroids and breathing treatments. No complaints of chest pain. Cardiology and pulmonary is following. 09/04/2018 Patient says that her breathing status is slightly better compared to today. Patient is able to ambulate to the bathroom but having shortness of breath. Currently being continued on IV Lasix twice daily along with Aldactone. Leg swelling is much improved. Continued on antibiotics in the form of Levaquin and Zosyn. Continued on steroids and breathing treatments. No fever no chills. Clinically improving. Saturating well on room air. 09/05/2018 Patient does have significant pulmonary edema and crackles on lung exam area appears to have some chronic diastolic dysfunction for which patient is receiving IV for Lasix which is appropriate patient also has ascites not much a scites I was happened to be at the bedside when they did an ultrasound I do not believe there is much of ascites to be drained. Patient should get better with IV Lasix. Patient is on the liver transplant list for cirrhosis. 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 I do not believe patient will need both Levaquin and Zosyn was Zosyn will be discontinued Constitutional: Denied any fatigue denied any fever. Cardio vascular: denied any chest pain, palpitations Gastrointestinal denied any nausea vomiting Pulmonary: Denied any shortness of breath cough Neurologic denied any new focal deficits All inpatient medications were reviewed and appropriate changes in these medications as dictated in the interval history and assessment and plan. Objective - Vital Signs Vital signs: Vital Signs Temp 97.7 F 09/05/18 14:14 Pulse 80 09/05/18 14:14 Resp 18 09/05/18 15:04 BP 152/67 09/05/18 14:14 Pulse Ox 96 09/05/18 14:14 Intake & Output 09/04/18 09/05/18 09/05/18 18:59 06:59 18:59 Output Total 92 Balance -92 Weight 99.7 kg Output: Post Void Residual 92 Other: Voiding Method Toilet # Voids 1 1 - Exam PHYSICAL EXAMINATION: GENERAL: The patient is alert and oriented x3, not in any acute distress. Well developed, well nourished. HEENT: Pupils are round and equally reacting to light. EOMI. No scleral icterus. No conjunctival pallor. Normocephalic, atraumatic. No pharyngeal erythema. No thyromegaly. CARDIOVASCULAR: S1 and S2 present. No murmurs, rubs, or gallops. PULMONARY: Bilateral diffuse crackles on exam ABDOMEN: Soft, does have ascites MUSCULOSKELETAL: No joint swelling or deformity. EXTREMITIES: No cyanosis, clubbing, or pedal edema. NEUROLOGICAL: Gross neurological examination did not reveal any focal deficits. SKIN: No rashes. - Labs CBC & Chem 7: 09/05/18 08:42 09/05/18 08:42 Labs: Abnormal Lab Results - Last 24 Hours (Table) 09/04/18 09/04/18 09/05/18 Range/Units 16:54 20:34 07:22 RBC (3.80-5.40) m/uL Hgb (11.4-16.0) gm/dL Hct (34.0-46.0) % MCV (80.0-100.0) fL MCHC (31.0-37.0) g/dL RDW (11.5-15.5) % Plt Count (150-450) k/uL Lymphocytes # (1.0-4.8) k/uL Macrocytosis Sodium (137-145) mmol/L Potassium (3.5-5.1) mmol/L Carbon Dioxide (22-30) mmol/L BUN (7-17) mg/dL Glucose (74-99) mg/dL POC Glucose (mg/dL) 296 H 304 H 371 H (75-99) mg/dL Calcium (8.4-10.2) mg/dL 09/05/18 09/05/18 09/05/18 Range/Units 08:42 08:42 11:51 RBC 2.77 L (3.80-5.40) m/uL Hgb 8.3 L (11.4-16.0) gm/dL Hct 27.9 L (34.0-46.0) % MCV 100.7 H (80.0-100.0) fL MCHC 29.6 L (31.0-37.0) g/dL RDW 26.0 H (11.5-15.5) % Plt Count 65 L (150-450) k/uL Lymphocytes # 0.8 L (1.0-4.8) k/uL Macrocytosis Marked A Sodium 136 L (137-145) mmol/L Potassium 3.4 L (3.5-5.1) mmol/L Carbon Dioxide 33 H (22-30) mmol/L BUN 31 H (7-17) mg/dL Glucose 328 H (74-99) mg/dL POC Glucose (mg/dL) 361 H (75-99) mg/dL Calcium 7.8 L (8.4-10.2) mg/dL Microbiology - Last 24 Hours (Table) 09/01/18 10:45 Blood Culture - Preliminary Blood No Growth after 96 hours Assessment and Plan Plan: Dyspnea secondary to multifocal pneumonia, pulmonary edema secondary to chronic diastolic dysfunction with acute exacerbation patient does have cirrhosis as well although there is not enough fluid in the belly to drain. Patient will be continue on Levaquin and Zosyn is not necessary sputum cultures are so far negative. Patient will continued on IV Lasix hopefully that will make her ascites better as well I do not believe therapy paracentesis is beneficial. Left lower lung lobe and right apical pneumonia. community-acquired Acute on chronic CHF with diastolic dysfunction Nonalcoholic liver cirrhosis currently on transplant list at [facility] Chronic anemia/iron deficiency anemia Morbid obesity BMI 36.2 History of esophageal variceal bleeding status post banding Thrombocytopenia secondary to liver cirrhosis DVT prophylaxis with SCDs due to thrombocytopenia
[2018-09-05 17:17] LABS: Glucose,Whole Blood 357 mg/dL (75-99)
[2018-09-05] MEDS: LEVOFLOXACIN 750 MG TAB PO SCH (17:45)
[2018-09-05] MEDS: MELATONIN 3 MG TABLET PO SCH (20:34)
[2018-09-05 20:42] LABS: Glucose,Whole Blood 307 mg/dL (75-99)
[2018-09-05] MEDS: diphenhydrAMINE 25 MG CAP PO PRN (20:54)
[2018-09-05] MEDS ORDERED: INSULIN DETEMIR (LEVEMIR) 100 UNIT/ML SYR SQ SCH (21:00)
[2018-09-05] MEDS: PRAMIPEXOLE 0.25 MG TAB PO PRN (23:37)
[2018-09-06 07:07] LABS: Glucose,Whole Blood 202 mg/dL (75-99)
[2018-09-06] MEDS: predniSONE 20 MG TAB PO SCH (07:57)
[2018-09-06] MEDS: IPRATROPIUM-ALBUTEROL 3 ML NEB INHALATION SCH ×4 (07:58→20:17)
[2018-09-06] MEDS: SPIRONOLACTONE 25 MG TAB PO SCH (07:58)
[2018-09-06] MEDS: FUROSEMIDE 10 MG/ML 4 ML VIAL IV SCH ×3 (07:58→23:17)
[2018-09-06] MEDS: RIFAXIMIN 550 MG TABLET PO SCH ×2 (07:58→21:03)
[2018-09-06] MEDS: INSULIN ASPART (NovoLOG) 100 UNIT/ML VIAL SQ SCH ×8 (07:58→21:06)
[2018-09-06] MEDS: BENZONATATE 100 MG CAP PO SCH ×3 (07:58→21:03)
[2018-09-06] MEDS: PROPRANOLOL 20 MG TAB PO SCH ×2 (07:58→21:03)
[2018-09-06] MEDS: NYSTATIN 100,000 UNIT/ML SUSP 500,000 UNIT/5 ML CUP PO SCH ×4 (07:58→21:03)
[2018-09-06] MEDS: OXYBUTYNIN CHLORIDE 5 MG TAB PO SCH (07:59)
[2018-09-06] MEDS: LACTULOSE 20 GM/30 ML CUP PO SCH ×3 (07:59→21:04)
--- NOTE | 2018-09-06 08:57 | XR ---
EXAMINATION TYPE: XR chest 2V DATE OF EXAM: 09/06/2018 COMPARISON: 09/05/2018 HISTORY: Shortness of breath TECHNIQUE: Frontal and lateral views of the chest are obtained. FINDINGS: Scattered senescent parenchymal changes noted. Hyperinflation compatible with COPD. No evidence for infiltrate. No evidence for atelectasis. Previously noted right apical density is les s conspicuous. Consider apical lordotic views for further evaluation if felt to be indicated. Heart size is stable. Mediastinal structures are stable and grossly unremarkable. No evidence for hilar prominence. Degenerative changes dorsal spine. IMPRESSION: 1. Previously noted right apical density is less conspicuous. Consider apical lordotic views for furt her evaluation if felt to be indicated.
[2018-09-06 09:56] VITALS: BMI 35.9
[2018-09-06 10:06] LABS: Anisocytosis Marked; HCT 27.2 % (34.0-46.0); HGB 8.1 gm/dL (11.4-16.0); Hypochromasia Marked; MCH 29.8 pg (25.0-35.0); MCHC 29.7 g/dL (31.0-37.0); MCV 100.2 fL (80.0-100.0); Macrocytosis Marked; RBC 2.71 m/uL (3.80-5.40); WBC 10.1 k/uL (3.8-10.6)
[2018-09-06 10:14] LABS: Platelet Count 61 k/uL (150-450)
[2018-09-06 10:15] LABS: Mean Platelet Volume 11.8
[2018-09-06 10:20] LABS: Albumin 2.4 g/dL (3.5-5.0); Calcium 8.1 mg/dL (8.4-10.2); Potassium 3.4 mmol/L (3.5-5.1); Total Bilirubin 3.4 mg/dL (0.2-1.3)
[2018-09-06] MEDS ORDERED: SPIRONOLACTONE 25 MG TAB PO STA (11:33)
[2018-09-06 12:30] LABS: Glucose,Whole Blood 195 mg/dL (75-99)
[2018-09-06] MEDS: ALPRAZolam 0.25 MG TAB PO PRN ×2 (13:18→21:09)
--- NOTE | 2018-09-06 14:07 | P.PN ---
Subjective This is a pleasant 68 year old female seen and examined on the medical floor. She is currently being treated with IV lasix for exertional dsypnea secondary to heart failure and pneumonia. Currently maintained on lasix 40 mg IV TID, aldactone 25 mg daily and propanolol 20 mg BID. Repeat chest xray today reveals hyperinflation compatible with COPD, no infiltrate or atelectasis, right apical density less conspicuous. She is seen and examined sitting up in bed. She complains of ongoing exertional shortness of breath with no real improvement. No chest pain, dizziness or palpitations. She continues to maintain a negative fluid balance. Laboratory data reviewed, WBC 10.1, hemoglobin 8.1, platelets 61, sodium 134, potassium 3.4, creatinine 0.87, AST 56, ALT 67, alkaline phosphate 186. Ultrasound of the abdomen revealed ascites present in all 4 quadrants largest pocket in RLQ measuring 3.8 cm. GENERAL: Well-appearing, well-nourished and in no acute distress. NECK: Supple without JVD or thyromegaly. LUNGS: Breath sounds clear to auscultation bilaterally. Respiration equal and unlabored. No wheezes, rales or rhonchi. HEART: Regular rate and rhythm with systolic ejection murmur at the base, no rubs or gallops. S1 and S2 heard. EXTREMITIES: Normal range of motion, trace bilateral lower extremity pitting edema. No clubbing or cyanosis. Peripheral pulses intact. ASSESSMENT Acute on chronic diastolic heart failure with symptoms of right and left heart failure Pneumonia Aortic stenosis, mild Chronic liver disease on transplant list History of esophageal varices s/p banding Chronic anemia Thrombocytopenia PLAN Increase aldactone to 50 mg daily. Ongoing shortness of breath possibly related to chronic liver failure and an emia. Overall stable from a cardiac perspective, ongoing medical management. We will follow as needed. Follow up with Dr. Knott in 2 weeks. Nurse Practitioner note has been reviewed, I agree with a documented findings and plan of care. Patient was seen and examined. Objective - Vital Signs Vital signs: Vital Signs Temp 98.3 F 09/06/18 05:15 Pulse 78 09/06/18 11:51 Resp 18 09/06/18 08:07 BP 176/76 09/06/18 05:15 Pulse Ox 95 09/06/18 08:01 Intake & Output 09/05/18 09/06/18 09/06/18 18:59 06:59 18:59 Intake Total 400 Output Total 92 1000 Balance -92 -600 Weight 101 kg 101 kg Intake: Oral 400 Output: Urine 1000 Post Void Residual 92 Other: Voiding Method Toilet # Voids 200 - Labs CBC & Chem 7: 09/06/18 09:16 09/06/18 09:16 Labs: Abnormal Lab Results - Last 24 Hours (Table) 09/05/18 09/05/18 09/06/18 Range/Units 17:15 20:29 07:03 RBC (3.80-5.40) m/uL Hgb (11.4-16.0) gm/dL Hct (34.0-46.0) % MCV (80.0-100.0) fL MCHC (31.0-37.0) g/dL RDW (11.5-15.5) % Plt Count (150-450) k/uL Macrocytosis Sodium (137-145) mmol/L Potassium (3.5-5.1) mmol/L Carbon Dioxide (22-30) mmol/L BUN (7-17) mg/dL Glucose (74-99) mg/dL POC Glucose (mg/dL) 357 H 307 H 202 H (75-99) mg/dL Calcium (8.4-10.2) mg/dL Total Bilirubin (0.2-1.3) mg/dL AST (14-36) U/L ALT (9-52) U/L Alkaline Phosphatase (38-126) U/L Total Protein (6.3-8.2) g/dL Albumin (3.5-5.0) g/dL 09/06/18 09/06/18 09/06/18 Range/Units 09:16 09:16 12:28 RBC 2.71 L (3.80-5.40) m/uL Hgb 8.1 L (11.4-16.0) gm/dL Hct 27.2 L (34.0-46.0) % MCV 100.2 H (80.0-100.0) fL MCHC 29.7 L (31.0-37.0) g/dL RDW 26.0 H (11.5-15.5) % Plt Count 61 L (150-450) k/uL Macrocytosis Marked A Sodium 136 L (137-145) mmol/L Potassium 3.4 L (3.5-5.1) mmol/L Carbon Dioxide 34 H (22-30) mmol/L BUN 32 H (7-17) mg/dL Glucose 230 H (74-99) mg/dL POC Glucose (mg/dL) 195 H (75-99) mg/dL Calcium 8.1 L (8.4-10.2) mg/dL Total Bilirubin 3.4 H (0.2-1.3) mg/dL AST 56 H (14-36) U/L ALT 67 H (9-52) U/L Alkaline Phosphatase 186 H (38-126) U/L Total Protein 5.0 L (6.3-8.2) g/dL Albumin 2.4 L (3.5-5.0) g/dL Microbiology - Last 24 Hours (Table) 09/01/18 10:45 Blood Culture - Preliminary Blood No Growth after 120 hours
--- NOTE | 2018-09-06 14:18 | P.PN ---
Subjective 68-year-old female with shortness of breath. Patient was discharged yesterday after being diagnosed and treated for COPD exacerbation. She said that she went home this morning she started to have the attack or shortness of breath again and she could not breathe. She called the ambulance and she came into the ER for further urology management. She said that she's still coughing was not able to get anything up. She does not complain of any fever or chills, she does not complain any abdominal pain, no nausea and vomiting, no diarrhea constipation. Patient feels that she is swollen all over including her lower extremities and her belly. On 09/03/2018 Patient is still dyspneic with ambulation and also at rest. Continued on IV Lasix. Aldactone was added. Repeat chest x-ray showed persistent right apical density may represent residual pneumonia although follow-up to resolution is recommended. No fever no chills. Cultures showed no growth. Lower extremities swelling is improving. Currently on antibiotics Levaquin and Zosyn. IV steroids and breathing treatments. No complaints of chest pain. Cardiology and pulmonary is following. 09/04/2018 Patient says that her breathing status is slightly better compared to today. Patient is able to ambulate to the bathroom but having shortness of breath. Currently being continued on IV Lasix twice daily along with Aldactone. Leg swelling is much improved. Continued on antibiotics in the form of Levaquin and Zosyn. Continued on steroids and breathing treatments. No fever no chills. Clinically improving. Saturating well on room air. 09/05/2018 Patient does have significant pulmonary edema and crackles on lung exam area appears to have some chronic diastolic dysfunction for which patient is receiving IV for Lasix which is appropriate patient also has ascites not much a scites I was happened to be at the bedside when they did an ultrasound I do not believe there is much of ascites to be drained. Patient should get better with IV Lasix. Patient is on the liver transplant list for cirrhosis. 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 I do not believe patient will need both Levaquin and Zosyn was Zosyn will be discontinued 09/06/2018 Overall patient clinically condition is getting better patient looks much better her saturations are getting better chest x-ray did not show any increased edema although patient complains that she was short of breath all night and unable to get to the commode patient was able to ablate okay without the any problems. Patient will be can you done IV Lasix today possibly will be discharged tomorrow on oral Lasix. Patient has hyperbilirubinemia secondary to cirrhosis. Patient blood sugars are bit better today Constitutional: Denied any fatigue denied any fever. Cardio vascular: denied any chest pain, palpitations Gastrointestinal denied any nausea vomiting Pulmonary: Denied any shortness of breath cough Neurologic denied any new focal deficits All inpatient medications were reviewed and appropriate changes in these medications as dictated in the interval history and assessment and plan. Objective - Vital Signs Vital signs: Vital Signs Temp 98.3 F 09/06/18 05:15 Pulse 78 09/06/18 11:51 Resp 18 09/06/18 08:07 BP 176/76 09/06/18 05:15 Pulse Ox 95 09/06/18 08:01 Intake & Output 09/05/18 09/06/18 09/06/18 18:59 06:59 18:59 Intake Total 400 Output Total 92 1000 Balance -92 -600 Weight 101 kg 101 kg Intake: Oral 400 Output: Urine 1000 Post Void Residual 92 Other: Voiding Method Toilet # Voids 200 - Exam PHYSICAL EXAMINATION: GENERAL: The patient is alert and oriented x3, not in any acute distress. Well developed, well nourished. HEENT: Pupils are round and equally reacting to light. EOMI. does have scleral icterus. No conjunctival pallor. Normocephalic, atraumatic. No pharyngeal erythema. No thyromegaly. CARDIOVASCULAR: S1 and S2 present. No murmurs, rubs, or gallops. PULMONARY: Bilateral diffuse crackles on exam ABDOMEN: Soft, does have ascites MUSCULOSKELETAL: No joint swelling or deformity. EXTREMITIES: No cyanosis, clubbing, or pedal edema. NEUROLOGICAL: Gross neurological examination did not reveal any focal deficits. SKIN: No rashes. - Labs CBC & Chem 7: 09/06/18 09:16 09/06/18 09:16 Labs: Abnormal Lab Results - Last 24 Hours (Table) 09/05/18 09/05/18 09/06/18 Range/Units 17:15 20:29 07:03 RBC (3.80-5.40) m/uL Hgb (11.4-16.0) gm/dL Hct (34.0-46.0) % MCV (80.0-100.0) fL MCHC (31.0-37.0) g/dL RDW (11.5-15.5) % Plt Count (150-450) k/uL Macrocytosis Sodium (137-145) mmol/L Potassium (3.5-5.1) mmol/L Carbon Dioxide (22-30) mmol/L BUN (7-17) mg/dL Glucose (74-99) mg/dL POC Glucose (mg/dL) 357 H 307 H 202 H (75-99) mg/dL Calcium (8.4-10.2) mg/dL Total Bilirubin (0.2-1.3) mg/dL AST (14-36) U/L ALT (9-52) U/L Alkaline Phosphatase (38-126) U/L Total Protein (6.3-8.2) g/dL Albumin (3.5-5.0) g/dL 09/06/18 09/06/18 09/06/18 Range/Units 09:16 09:16 12:28 RBC 2.71 L (3.80-5.40) m/uL Hgb 8.1 L (11.4-16.0) gm/dL Hct 27.2 L (34.0-46.0) % MCV 100.2 H (80.0-100.0) fL MCHC 29.7 L (31.0-37.0) g/dL RDW 26.0 H (11.5-15.5) % Plt Count 61 L (150-450) k/uL Macrocytosis Marked A Sodium 136 L (137-145) mmol/L Potassium 3.4 L (3.5-5.1) mmol/L Carbon Dioxide 34 H (22-30) mmol/L BUN 32 H (7-17) mg/dL Glucose 230 H (74-99) mg/dL POC Glucose (mg/dL) 195 H (75-99) mg/dL Calcium 8.1 L (8.4-10.2) mg/dL Total Bilirubin 3.4 H (0.2-1.3) mg/dL AST 56 H (14-36) U/L ALT 67 H (9-52) U/L Alkaline Phosphatase 186 H (38-126) U/L Total Protein 5.0 L (6.3-8.2) g/dL Albumin 2.4 L (3.5-5.0) g/dL Microbiology - Last 24 Hours (Table) 09/01/18 10:45 Blood Culture - Preliminary Blood No Growth after 120 hours Assessment and Plan Plan: Dyspnea secondary to multifocal pneumonia, pulmonary edema secondary to chronic diastolic dysfunction with acute exacerbation patient does have cirrhosis as well although there is not enough fluid in the belly to drain. Patient will be continue on Levaquin and Zosyn is not necessary sputum cultures are so far negat bradley. Patient will continued on IV Lasix hopefully that will make her ascites better as well I do not believe therapy paracentesis is beneficial. She does have improvement in her respiratory status possibility of discharge tomorrow -Type 2 diabetes mellitus uncontrolled blood sugars which are getting better now we'll increase the dose of long-acting insulin to 20 units Left lower lung lobe and right apical pneumonia. community-acquired Acute on chronic CHF with diastolic dysfunction, continue with the Lasix as mentioned above patient has acute exacerbation of CHF Nonalcoholic liver cirrhosis currently on transplant list at [facility] Chronic anemia/iron deficiency anemia Morbid obesity BMI 36.2 History of esophageal variceal bleeding status post banding Thrombocytopenia secondary to liver cirrhosis DVT prophylaxis with SCDs due to thrombocytopenia
[2018-09-06] MEDS ORDERED: RX INFO: IV CONTRAST WAS GIVEN 1 EACH MISC MISCELLANE PRN (15:08)
--- NOTE | 2018-09-06 15:08 | P.PN ---
Subjective Progress Note Date: 09/06/18 Principal diagnosis: Multilobar pneumonia. This is 68-year-old white female patient with past medical history of nonalcoholic liver cirrhosis and is on the liver transplant list, lifetime nonsmoker, chronic anemia, history of esophageal variceal banding, who presented to the hospital on 08/27/2018 with complaints of worsening shortness of breath and fever. Patient states she has been chronically short of breath for a period of over a year, but her dyspnea has become progressively worse 's 2 AM on 08/27/2018, she developed a dry cough and a fever, she was wheezing. Patient did have a one episode of nonbloody nonbilious emesis on the way to the hospital, no abdominal pain or diarrhea, she denied any sick contacts. D-dimer was elevated, and CT angios was completed and revealed no acute pulmonary embolism however it did show atypical mass in the left lung and there was a consolidation consistent with pneumonia. Patient was started on IV antibiotics in the form of Zithromax and Rocephin, and later Rocephin was switched to Zosyn. The patient was treated with and she was discharged home on Avelox. knowing that the FU CXR was showing improvement in the consolidation. The patient went home and she started to have the attack or shortness of breath again and she co uld not breathe. She called the ambulance and she came into the ER for further urology management. She said that she's still coughing was not able to get anything up. She does not complain of any fever or chills, she does not complain any abdominal pain, no nausea and vomiting, no diarrhea constipation. Patient feels that she is swollen all over including her lower extremities and her belly. ER course-his vitals were stable and she was saturating 98% on 2 L. Labwork was done which showed WBC 10.8 hemoglobin 7.8 platelets 79 sodium 136 potassium 5.0 bun 28 creatinine 0.69 lactic acid is 2.1 AST 95 ALT 49 alk phos 224 and patient was given breathing treatments, IV fluids, Zosyn and Levaquin and admitted to the hospitalist service a further admission and management. Review of the CXR sh owed a multifocal infiltrate. The patient was given a dose of lasix in the ED. She had a echo in 05/2018 and she was found to have a normal EF of 55%. Clinically she is feeling better as the patient is being diuresis with IV Lasix. Chest x-ray from today is showing some stable findings without any interval worsening in the pulmonary infiltrates. The patient remains on room air oxygen with a pulse ox of 96%. On 08/26/2018 patient seen in follow-up on selective care unit, she is awake and alert, in no acute distress, she remains on IV Lasix, she is diuresing, she is in negative fluid balance. She is down 2.3 kg in the last 24 hours. Lower extremity edema is improving. The patient still complaining of being dyspneic with exertion. No fever or chills. Urine and blood cultures showed no growth, patient is not bringing up any sputum, lung sounds are positive for coarse rales at bilateral lower lobes, still has a residual 1+ pitting edema in lower extremities. Fever or chills. She is on Levaquin and Zosyn for antibiotic coverage. And IV Solu-Medrol 40 mg every 12 hours. We'll obtain follow-up chest x-ray today. On 09/04/2018 patient seen in follow-up on medical surgical floor. She is awake and alert, in no acute distress, denies any worsening dyspnea, room air pulse ox is 94%, no complaints of chest pain, cough or congestion, patient is afebrile. Urine and blood culture showed no growth. Remains on IV Lasix at 40 mg every 12 hours. Maintaining negative fluid balance, lower extremity edema is improving, patient is down 2.3 kg in the last 24 hours. Antibiotic coverage in the form of Levaquin and Zosyn, ration has been unable to produce any sputum sample for us. Yesterday's chest x-ray was reviewed and showed right apical density that could represent residual pneumonia, and resolved left lower lobe infiltrate. The patient is seen today 09/05/2018 in follow-up on the regular medical floor. She is currently awake and alert in no acute distress. Resting comfortably in bed. On room air. Denies any worsening shortness of breath, cough or congestion. Today's chest x-ray shows improved right apical infiltrate. Blood and urine cultures reveal no growth. White count 8.7. Hemoglobin 8.3. Creatinine 0.85. She is complaining of some abdominal fullness. IV diuretics initiated. On Aldactone. She remains on bronchodilators, Tessalon Perles, Solu-Medrol. Antibiotics in the form of Zosyn and Levaquin. The patient is seen today 09/06/2018 in follow-up on the regular medical floor. She is awake and alert in no acute distress. She still has ongoing complaints of shortness of breath more so with exertion but at rest as well. Somewhat disproportionate to her clinical findings. She is maintaining O2 saturations in the 90s on 2 L/m per nasal cannula. She's been afebrile. Chest x-ray reveals right apical density less conspicuous compared to previous. No evidence of infiltrates. Abdominal ultrasound did reveal ascites largest pocket in the right lower quadrant measuring 3.8 cm. No plans for paracentesis. Objective - Vital Signs Vital signs: Vital Signs Temp 98.3 F 09/06/18 05:15 Pulse 78 09/06/18 11:51 Resp 18 09/06/18 08:07 BP 176/76 09/06/18 05:15 Pulse Ox 95 09/06/18 08:01 Intake & Output 09/05/18 09/06/18 09/06/18 18:59 06:59 18:59 Intake Total 400 Output Total 92 1000 Balance -92 -600 Weight 101 kg 101 kg Intake: Oral 400 Output: Urine 1000 Post Void Residual 92 Other: Voiding Method Toilet # Voids 200 - Exam GENERAL EXAM: Alert, active, comfortable in no apparent distress. On 2 L/m per nasal cannula. HEAD: Normocephalic. EYES: Normal reaction of pupils, equal size. NOSE: Clear with pink turbinates. THROAT: No erythema or exudates. NECK: No masses, no JVD. CHEST: No chest wall deformity. LUNGS: Equal air entry with crackles in the bilateral posterior bases. CVS: S1 and S2 normal with no audible murmur, regular rhythm. ABDOMEN: Abdominal distention with slight fluid wave, normal bowel sounds, no guarding or rigidity. SPINE: No scoliosis or deformity SKIN: No rashes CENTRAL NERVOUS SYSTEM: No focal deficits, tone is normal in all 4 extremities. EXTREMITIES: There is no peripheral edema. No clubbing, no cyanosis. Perip heral pulses are intact. - Labs CBC & Chem 7: 09/06/18 09:16 09/06/18 09:16 Labs: Abnormal Lab Results - Last 24 Hours (Table) 09/05/18 09/05/18 09/06/18 Range/Units 17:15 20:29 07:03 RBC (3.80-5.40) m/uL Hgb (11.4-16.0) gm/dL Hct (34.0-46.0) % MCV (80.0-100.0) fL MCHC (31.0-37.0) g/dL RDW (11.5-15.5) % Plt Count (150-450) k/uL Macrocytosis Sodium (137-145) mmol/L Potassium (3.5-5.1) mmol/L Carbon Dioxide (22-30) mmol/L BUN (7-17) mg/dL Glucose (74-99) mg/dL POC Glucose (mg/dL) 357 H 307 H 202 H (75-99) mg/dL Calcium (8.4-10.2) mg/dL Total Bilirubin (0.2-1.3) mg/dL AST (14-36) U/L ALT (9-52) U/L Alkaline Phosphatase (38-126) U/L Total Protein (6.3-8.2) g/dL Albumin (3.5-5.0) g/dL 09/06/18 09/06/18 09/06/18 Range/Units 09:16 09:16 12:28 RBC 2.71 L (3.80-5.40) m/uL Hgb 8.1 L (11.4-16.0) gm/dL Hct 27.2 L (34.0-46.0) % MCV 100.2 H (80.0-100.0) fL MCHC 29.7 L (31.0-37.0) g/dL RDW 26.0 H (11.5-15.5) % Plt Count 61 L (150-450) k/uL Macrocytosis Marked A Sodium 136 L (137-145) mmol/L Potassium 3.4 L (3.5-5.1) mmol/L Carbon Dioxide 34 H (22-30) mmol/L BUN 32 H (7-17) mg/dL Glucose 230 H (74-99) mg/dL POC Glucose (mg/dL) 195 H (75-99) mg/dL Calcium 8.1 L (8.4-10.2) mg/dL Total Bilirubin 3.4 H (0.2-1.3) mg/dL AST 56 H (14-36) U/L ALT 67 H (9-52) U/L Alkaline Phosphatase 186 H (38-126) U/L Total Protein 5.0 L (6.3-8.2) g/dL Albumin 2.4 L (3.5-5.0) g/dL Microbiology - Last 24 Hours (Table) 09/01/18 10:45 Blood Culture - Preliminary Blood No Growth after 120 hours Assessment and Plan Assessment: Impression: 1. Dyspnea with multifocal pulmonary infiltrates. Patient initially presented with a left lower lobe pneumonia and subsequently she developed bilateral pulmonary infiltrates which could be pneumonia progression versus interstitial edema/fluid. Today's chest x-ray reveals resolving right apical density 2 left lower lung pneumonia, community acquired, in the immunocompromised patient. The patient was treated and she was discharged home on oral Avelox 3 exacerbation of congestive heart failure with diastolic dysfunction 4. Chronic nonalcoholic liver cirrhosis patient is on the transplant list 5. Chronic anemia, related to iron deficiency and the patient was given IV iron during her last hospital stay. Iron level remains low. 6 Obesity 7 History of esophageal variceal banding 8 History of bowel resection/ hernia repair 9 thrombocytopenia secondary to above Plan: The patient was seen and evaluated by Dr. Clark. Chest x-ray and labs reviewed. Abdominal ultrasound reviewed. She is continuing have complaints of dyspnea on minimal exertion and with conversation. We'll obtain a computed tomography scan of the chest. Continue the current treatment plan. Continue to diurese the patient. We'll continue to follow. I, the cosigning physician, performed a history & physical examination of the patient. Lungs sounds with few scattered rhonchi. Maintaining good O2 sat urations in the 90s on 2 L/m per nasal cannula. I discussed the assessment and plan of care with my nurse practitioner, Nicolasa Carroll. I attest to the above note as dictated by her.
[2018-09-06] MEDS ORDERED: FUROSEMIDE 10 MG/ML 10 ML VIAL IV SCH (16:00)
--- NOTE | 2018-09-06 16:53 | CT ---
EXAMINATION TYPE: CT chest w con DATE OF EXAM: 09/06/2018 COMPARISON: 08/27/2018 HISTORY: Dyspnea, abnormal cxr. CT DLP: 454 mGycm Automated exposure control for dose reduction was used. CONTRAST: CT scan of the chest is performed with IV Contrast, patient injected with 100 mL of Isovue M300. FINDINGS: There is mild patchy airspace infiltrate and atelectasis left lower lobe. Heart is slightly enlarged. There is no pericardial effusion. There is no pleural effusion. There is mild pleural thickening rig ht posterior lung field. There is no mediastinal adenopathy. There are no hilar masses. There is no evidence of thoracic aorti c aneurysm or dissection. There is some coronary artery calcification. There is moderate free fluid in the abdomen. Liver is relatively small and irregular consistent with cirrhosis. There is dilated vein in the upper abdomen is probably varicose umbilical vein The bony thorax is intact. Thoracic spine shows no focal bone destruction. There is 5% anterior wedgi ng of T3 vertebra. IMPRESSION: Compared to last exam there is significant clearing of airspace consolidation left lower lobe. There is new pleural thickening right posterior lung field compared to old exam. There is significant increased abdominal ascites compared to last exam and persistent evidence of po rtal venous hypertension and hepatic cirrhosis.
[2018-09-06 17:21] LABS: Glucose,Whole Blood 195 mg/dL (75-99)
[2018-09-06] MEDS: LEVOFLOXACIN 750 MG TAB PO SCH (17:30)
[2018-09-06] MEDS ORDERED: INSULIN DETEMIR (LEVEMIR) 100 UNIT/ML SYR SQ SCH (21:00)
[2018-09-06 21:02] LABS: Glucose,Whole Blood 270 mg/dL (75-99)
[2018-09-06] MEDS: MELATONIN 3 MG TABLET PO SCH (21:03)
[2018-09-06] MEDS: diphenhydrAMINE 25 MG CAP PO PRN (21:09)
[2018-09-06 23:11] VITALS: RESP 20
[2018-09-07 07:41] LABS: Glucose,Whole Blood 189 mg/dL (75-99)
[2018-09-07] MEDS: FUROSEMIDE 10 MG/ML 4 ML VIAL IV SCH (08:07)
[2018-09-07] MEDS: predniSONE 20 MG TAB PO SCH (08:08)
[2018-09-07] MEDS: INSULIN ASPART (NovoLOG) 100 UNIT/ML VIAL SQ SCH ×4 (08:08→12:39)
[2018-09-07] MEDS: LACTULOSE 20 GM/30 ML CUP PO SCH (08:08)
[2018-09-07] MEDS: BENZONATATE 100 MG CAP PO SCH (08:08)
[2018-09-07] MEDS: NYSTATIN 100,000 UNIT/ML SUSP 500,000 UNIT/5 ML CUP PO SCH ×2 (08:09→12:38)
[2018-09-07] MEDS: RIFAXIMIN 550 MG TABLET PO SCH (08:09)
[2018-09-07] MEDS: OXYBUTYNIN CHLORIDE 5 MG TAB PO SCH (08:09)
[2018-09-07] MEDS: PROPRANOLOL 20 MG TAB PO SCH (08:09)
[2018-09-07] MEDS: ALPRAZolam 0.25 MG TAB PO PRN (08:14)
[2018-09-07] MEDS: IPRATROPIUM-ALBUTEROL 3 ML NEB INHALATION SCH ×2 (08:44→12:04)
[2018-09-07] MEDS ORDERED: SPIRONOLACTONE 25 MG TAB PO SCH (09:00)
[2018-09-07] MEDS: POTASSIUM CHLORIDE ER 20 MEQ TAB.ER PO SCH ×2 (11:44→12:38)
[2018-09-07 12:17] LABS: Calcium 7.9 mg/dL (8.4-10.2); Potassium 3.4 mmol/L (3.5-5.1)
[2018-09-07 12:43] LABS: Glucose,Whole Blood 293 mg/dL (75-99)
--- NOTE | 2018-09-07 13:21 | P.DS ---
Providers Date of admission: 09/01/18 12:45 Attending physician: Baltazar Whiting MD Consults: 09/01/18 12:45 Consult Physician Routine Consulting Provider: Baltazar Beatty Consult Reason/Comments: Dyspnea, evaluate for heart failure Do you want consulting provider notified?: Yes Consult Physician Routine Consulting Provider: Juliana Mojica Consult Reason/Comments: Dyspnea, evaluate for multifocal pneumonia Do you want consulting provider notified?: Yes Primary care physician: De[facility] Course: 68-year-old female with shortness of breath. Patient was discharged yesterday after being diagnosed and treated for COPD exacerbation. She said that she went home this morning she started to have the attack or shortness of breath again and she could not breathe. She called the ambulance and she came into the ER for further urology management. She said that she's still coughing was not able to get anything up. She does not complain of any fever or chills, she does not complain any abdominal pain, no nausea and vomiting, no diarrhea constipation. Patient feels that she is swollen all over including her lower extremities and her belly. On 09/03/2018 Patient is still dyspneic with ambulation and also at rest. Continued on IV Lasix. Aldactone was added. Repeat chest x-ray showed persistent right apical density may represent residual pneumonia although follow-up to resolution is recommended. No fever no chills. Cultures showed no growth. Lower extremities swelling is improving. Currently on antibiotics Levaquin and Zosyn. IV steroids and breathing treatments. No complaints of chest pain. Cardiology and pulmonary is following. 09/04/2018 Patient says that her breathing status is slightly better compared to today. Patient is able to ambulate to the bathroom but having shortness of breath. Currently being continued on IV Lasix twice daily along with Aldactone. Leg swelling is much improved. Continued on antibiotics in the form of Levaquin and Zosyn. Continued on steroids and breathing treatments. No fever no chills. Clinically improving. Saturating well on room air. 09/05/2018 Patient does have significant pulmonary edema and crackles on lung exam area appears to have some chronic diastolic dysfunction for which patient is receiving IV for Lasix which is appropriate patient also has ascites not much ascites I was happened to be at the bedside when they did an ultrasound I do not believe there is much of ascites to be drained. Patient should get better with IV Lasix. Patient is on the liver transplant list for cirrhosis. 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 I do not believe patient will need both Levaquin and Zosyn was Zosyn will be discontinued 09/06/2018 Overall patient clinically condition is getting better patient looks much better her saturations are getting better chest x-ray did not show any increased edema although patient complains that she was short of breath all night and unable to get to the commode patient was able to ablate okay without the any problems. Patient will be can you done IV Lasix today possibly will be discharged tomorrow on oral Lasix. Patient has hyperbilirubinemia secondary to cirrhosis. Patient blood sugars are bit better today 09/07/2018 Patient is respiratory status improved is not requiring any oxygen patient is not getting short of breath upon ablation. Patient will be discharged today on oral Lasix 40 twice a day along with some potassium supplementation patient is also on Aldactone basic metabolic profile will be tested in 3 days as is to be faxed at PCPs office. Patient will be discharged on 5 more days of levofloxacin PHYSICAL EXAMINATION: GENERAL: The patient is alert and oriented x3, not in any acute distress. Well developed, well nourished. HEENT: Pupils are round and equally reacting to light. EOMI. does have scleral icterus. No conjunctival pallor. Normocephalic, atraumatic. No pharyngeal erythema. No thyromegaly. CARDIOVASCULAR: S1 and S2 present. No murmurs, rubs, or gallops. PULMONARY: Bilateral diffuse crackles on exam ABDOMEN: Soft, does have ascites MUSCULOSKELETAL: No joint swelling or deformity. EXTREMITIES: No cyanosis, clubbing, or pedal edema. NEUROLOGICAL: Gross neurological examination did not reveal any focal deficits. SKIN: No rashes. Reason for to dictation of a progress note for further details of hospitalization course and her chronic medical problems that were addressed during this hospitalization Patient Condition at Discharge: Serious Plan - Discharge Summary New Discharge Prescriptions: New Spironolactone [Aldactone] 50 mg PO DAILY #30 tab Levofloxacin [Levaquin] 750 mg PO Q24H #5 tab Insulin Detemir (Levemir) [Levemir] 20 unit SQ HS #1 syr Pramipexole [Mirapex] 0.25 mg PO TID PRN #30 tab PRN Reason: restlessness Nystatin 100,000 Unit/ml Susp [Mycostatin Oral Susp] 500,000 unit PO QID #30 cup INSULIN ASPART (NovoLOG) [NovoLOG (formulary)] 6 unit SQ ACHS #1 vial Potassium Chloride ER [K-Dur 20] 20 meq PO DAILY #30 tab ALPRAZolam [Xanax] 0.25 mg PO BID PRN 3 Days #6 tab PRN Reason: Anxiety Continue Rifaximin [Xifaxan] 550 mg PO BID Ondansetron [Zofran] 4 mg PO Q8HR PRN PRN Reason: Nausea Lactulose 20 gm PO TID Propranolol [Inderal] 20 mg PO BID Oxybutynin Chloride 5 mg PO DAILY HYDROcodone/APAP 5-325MG [[place] 5-325] 1 each PO Q6HR PRN #15 tab PRN Reason: Pain Benzonatate [Tessalon Perles] 100 mg PO TID #30 cap Ipratropium-Albuterol Nebulize [Duoneb 0.5 mg-3 mg/3 ml Soln] 3 ml INHALATION Q4H PRN #60 neb PRN Reason: Dyspnea predniSONE See Taper PO Changed Furosemide [Lasix] 40 mg PO DAILY #60 tab Discontinued Moxifloxacin HCl [Avelox] 400 mg PO DAILY #7 tablet Discharge Medication List Lactulose 20 gm PO TID 07/04/16 [History] Ondansetron [Zofran] 4 mg PO Q8HR PRN 07/04/16 [History] Propranolol [Inderal] 20 mg PO BID 07/04/16 [History] Rifaximin [Xifaxan] 550 mg PO BID 07/04/16 [History] Oxybutynin Chloride 5 mg PO DAILY 08/27/18 [History] Benzonatate [Tessalon Perles] 100 mg PO TID #30 cap 08/30/18 [Rx] HYDROcodone/APAP 5-325MG [[place] 5-325] 1 each PO Q6HR PRN #15 tab 08/30/18 [Rx] Ipratropium-Albuterol Nebulize [Duoneb 0.5 mg-3 mg/3 ml Soln] 3 ml INHALATION Q4H PRN #60 neb 08/30/18 [Rx] predniSONE See Taper PO 09/01/18 [History] ALPRAZolam [Xanax] 0.25 mg PO BID PRN 3 Days #6 tab 09/07/18 [Rx] Furosemide [Lasix] 40 mg PO DAILY #60 tab 09/07/18 [Rx] INSULIN ASPART (NovoLOG) [NovoLOG (formulary)] 6 unit SQ ACHS #1 vial 09/07/18 [Rx] Insulin Detemir (Levemir) [Levemir] 20 unit SQ HS #1 syr 09/07/18 [Rx] Levofloxacin [Levaquin] 750 mg PO Q24H #5 tab 09/07/18 [Rx] Nystatin 100,000 Unit/ml Susp [Mycostatin Oral Susp] 500,000 unit PO QID #30 cup 09/07/18 [Rx] Potassium Chloride ER [K-Dur 20] 20 meq PO DAILY #30 tab 09/07/18 [Rx] Pramipexole [Mirapex] 0.25 mg PO TID PRN #30 tab 09/07/18 [Rx] Spironolactone [Aldactone] 50 mg PO DAILY #30 tab 09/07/18 [Rx] Follow up Appointment(s)/Referral(s): Freddy Russell MD [STAFF PHYSICIAN] - 3 Days Gonzales Knott MD [STAFF PHYSICIAN] - 09/20/18 1:45 pm Ambulatory/Diagnostic Orders: Basic Metabolic Panel [LAB.AMB] Time Frame: 3 Days, Location: None Selected Patient Instructions/Handouts: Pneumonitis (DC) Activity/Diet/Wound Care/Special Instructions: Check blood sugars before each meal and before bed Discharge Disposition: HOME SELF-CARE
[2018-09-07 13:38] VITALS: BP 147/66; PULSE 73; TEMP 98.4
== END 2018-09-07 14:53 | disposition home or self-care (01) | DRG 291 ==
LOC: EC 09:45 → 3SCARD 12:45 → 4MS4W 09-03 22:30
PROVIDERS: ADMIT Internal Medicine; ATTEND Internal Medicine
DX: I50.33 Acute on chronic diastolic (congestive) heart failure (principal); J96.00 Acute respiratory failure, unspecified whether with hypoxia or hypercapnia; J18.1 Lobar pneumonia, unspecified organism; J44.0 Chronic obstructive pulmonary disease with (acute) lower respiratory infection; J44.1 Chronic obstructive pulmonary disease with (acute) exacerbation; K76.6 Portal hypertension; R18.8 Other ascites; Z76.82 Awaiting organ transplant status; D89.9 Disorder involving the immune mechanism, unspecified; D69.59 Other secondary thrombocytopenia; I27.20 Pulmonary hypertension, unspecified; I08.3 Combined rheumatic disorders of mitral, aortic and tricuspid valves; E66.01 Morbid (severe) obesity due to excess calories; K74.60 Unspecified cirrhosis of liver; K72.90 Hepatic failure, unspecified without coma; D50.9 Iron deficiency anemia, unspecified; M19.90 Unspecified osteoarthritis, unspecified site; F10.11 Alcohol abuse, in remission; Z68.36 Body mass index [BMI] 36.0-36.9, adult; Z79.2 Long term (current) use of antibiotics; Z79.899 Other long term (current) drug therapy; Z87.19 Personal history of other diseases of the digestive system; Z90.710 Acquired absence of both cervix and uterus; Z90.49 Acquired absence of other specified parts of digestive tract; Z98.890 Other specified postprocedural states
CPT/HCPCS: 36415; 71046; 71260; 76705; 80048; 80053; 81001; 82550; 83605; 83735; 83880; 84145; 84484; 85025; 85027; 85610; 85730; 87040; 87086; 94640; 94760; 99285

== ENCOUNTER 2019-11-26 16:25 | Emergency (ER) | payer MEDICARE, BC ==
[2019-11-26 16:35] VITALS: BP 130/68; PULSE 77; RESP 20; TEMP 98.3
--- NOTE | 2019-11-26 17:20 | XR ---
EXAMINATION TYPE: XR ribs RT w pa chest xray DATE OF EXAM: 11/26/2019 COMPARISON: 09/06/2018 HISTORY: Fall. Right-sided chest pain TECHNIQUE: 5 views FINDINGS: There is no heart failure nor confluent pneumonic infiltrate. Costophrenic angles are clear . Right ribs appear intact. There is no evidence of pleural effusion or pneumothorax. IMPRESSION: No active cardiopulmonary disease. Negative right rib exam. Heart appears increased sligh tly compared to old exam. Mild cardiomegaly.
--- NOTE | 2019-11-26 17:22 | XR ---
EXAMINATION TYPE: XR knee 4V RT DATE OF EXAM: 11/26/2019 COMPARISON: NONE HISTORY: Right knee pain TECHNIQUE: 4 views FINDINGS: There is moderate narrowing of the medial joint space. There is spurring of the medial femo ral and tibial condyles. There is spurring on the patella. I see no fracture nor dislocation. There i s no sign of joint effusion. IMPRESSION: Osteoarthritis in the medial joint space. No fracture seen.
--- NOTE | 2019-11-26 17:30 | ED ---
General Adult HPI - General Chief complaint: Fall Stated complaint: Fall Time Seen by Provider: 11/26/19 16:37 Source: patient, RN notes reviewed Mode of arrival: wheelchair Limitations: no limitations - History of Present Illness Initial comments: 69-year-old female with a past medical history of liver cirrhosis, hypertension, chronic anemia, obesity, chronic thrombocytopenia presents to the emergency department for a chief complaining of fall. Patient states that she was walking yesterday when she tripped over uneven pavement and fell on her right side. Patient is complaining of bruising to the right breast as well as pain to the right knee. Patient did see her cardiopulmonary specialist yesterday and had an x- ray of her right knee which was negative. She is able to walk on the right knee. Patient did not hit her head. Patient does not take blood thinners.Patient has no other complaints at this time including shortness of breath, abdominal pain, nausea or vomiting, headache, or visual changes. - Related Data Home Medications Medication Instructions Recorded Confirmed Lactulose 20 gm PO TID 07/04/16 09/01/18 Ondansetron [Zofran] 4 mg PO Q8HR PRN 07/04/16 09/01/18 Propranolol [Inderal] 20 mg PO BID 07/04/16 09/01/18 Rifaximin [Xifaxan] 550 mg PO BID 07/04/16 09/01/18 Oxybutynin Chloride 5 mg PO DAILY 08/27/18 09/01/18 predniSONE See Taper PO 09/01/18 Previous Rx's Medication Instructions Recorded Benzonatate [Tessalon Perles] 100 mg PO TID #30 cap 08/30/18 HYDROcodone/APAP 5-325MG [[place] 1 each PO Q6HR PRN #15 tab 08/30/18 5-325] Ipratropium-Albuterol Nebulize 3 ml INHALATION Q4H PRN #60 neb 08/30/18 [Duoneb 0.5 mg-3 mg/3 ml Soln] ALPRAZolam [Xanax] 0.25 mg PO BID PRN 3 Days #6 tab 09/07/18 Furosemide [Lasix] 40 mg PO DAILY #60 tab 09/07/18 INSULIN ASPART (NovoLOG) [NovoLOG 6 unit SQ ACHS #1 vial 06/01/19 (formulary)] Insulin Detemir (Levemir) [Levemir] 20 unit SQ HS #1 syr 09/07/18 Levofloxacin [Levaquin] 750 mg PO Q24H #5 tab 09/07/18 Nystatin 100,000 Unit/ml Susp 500,000 unit PO QID #30 cup 09/07/18 [Mycostatin Oral Susp] Potassium Chloride ER [K-Dur 20] 20 meq PO DAILY #30 tab 09/07/18 Pramipexole [Mirapex] 0.25 mg PO TID PRN #30 tab 09/07/18 Spironolactone [Aldactone] 50 mg PO DAILY #30 tab 09/07/18 Allergies Allergy/AdvReac Type Severity Reaction Status Date / Time No Known Allergies Allergy Verified 11/26/19 16:35 Review of Systems ROS Statement: Those systems with pertinent positive or pertinent negative responses have been documented in the HPI. ROS Other: All systems not noted in ROS Statement are negative. Past Medical History Past Medical History: GI Bleed, Liver Disease Additional Past Medical History / Comment(s): NON ALCOHOL CIRRHOSIS OF LIVER - CURRENTLY ON LIVER TRANSPLANT LIST. 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 [facility] and she has history of portal hypertension, chronic anemia, chronic dyspea, obesity, chronic thrombocytopenia History of Any Multi-Drug Resistant Organisms: None Reported Past Surgical History: Bowel Resection, Hernia Repair, Hysterectomy, Joint Replacement, Orthopedic Surgery Additional Past Surgical History / Comment(s): x4 laproscopy's Past Anesthesia/Blood Transfusion Reactions: No Reported Reaction Past Psychological History: No Psychological Hx Reported Smoking Status: Never smoker Past Alcohol Use History: None Reported Past Drug Use History: None Reported General Exam Limitations: no limitations General appearance: alert, in no apparent distress Head exam: Present: atraumatic, normocephalic, normal inspection Eye exam: Present: normal appearance, PERRL, EOMI. Absent: scleral icterus, conjunctival injection, periorbital swelling ENT exam: Present: normal exam, mucous membranes moist Neck exam: Present: normal inspection, full ROM. Absent: tenderness, meningismus, lymphadenopathy Respiratory exam: Present: normal lung sounds bilaterally, chest wall tenderness (patient has right anterior chest wall tenderness. There is some minimal ecchymosis noted to the lateral right breast.). Absent: respiratory distress, wheezes, rales, rhonchi, stridor Cardiovascular Exam: Present: regular rate, normal rhythm, normal heart sounds. Absent: systolic murmur, diastolic murmur, rubs, gallop, clicks GI/Abdominal exam: Present: soft, normal bowel sounds. Absent: distended, tenderness, guarding, rebound, rigid Extremities exam: Present: tenderness (tenderness to the right anterior knee joint.), normal capillary refill (capillary refill less than 2 seconds, DP pulse 2+ in the right lower 70.), joint swelling (patient does have some mild edema with ecchymosis noted of the right knee.), other (sensation intact left lower extremity). Absent: full ROM (90 flexion of the right knee), calf tenderness (no tenderness.) Back exam: Absent: CVA tenderness (R), CVA tenderness (L) Neurological exam: Present: alert Course Vital Signs 11/26/19 16:33 Temperature 98.3 F Pulse Rate 77 Respiratory 20 Rate Blood Pressure 130/68 Medical Decision Making - Medical Decision Making Chest x-ray shows no active cart of pulmonary disease. Negative right rib exam. Heart appears increased slightly compared to an mild exam. Mild cardiomegaly. There is no evidence of pleural effusion or pneumothorax. X-ray of the right knee shows osteoarthritis. No fracture seen. No sign of joint effusion. at this time patient will follow up with primary care. She will return here if she has any worsening symptoms. Disposition Clinical Impression: Fall, Contusion of right breast, Knee pain, right Disposition: HOME SELF-CARE Condition: Good Instructions (If sedation given, give patient instructions): Knee Pain (ED), Rib Contusion (ED) Additional Instructions: please take Tylenol for pain. Please follow-up with your doctor in one to 2 days. If you have any worsening symptoms return to the emergency room. Is patient prescribed a controlled substance at d/c from ED?: No Referrals: Stan Rodriguez MD [Primary Care Provider] - 1-2 days Time of Disposition: 17:33
[2019-11-26] MEDS ORDERED: ACET/COD 300 MG/30 MG STARTER PACK 6 TAB BTL PO STA (17:39)
== END 2019-11-26 17:49 | disposition home or self-care (01) ==
LOC: EC 16:25
DX: S20.01XA Contusion of right breast, initial encounter (principal); M17.11 Unilateral primary osteoarthritis, right knee; I51.7 Cardiomegaly; D69.6 Thrombocytopenia, unspecified; Z79.899 Other long term (current) drug therapy; Z79.51 Long term (current) use of inhaled steroids; Z96.60 Presence of unspecified orthopedic joint implant; W01.0XXA Fall on same level from slipping, tripping and stumbling without subsequent striking against object, initial encounter; Y93.01 Activity, walking, marching and hiking; Y92.89 Other specified places as the place of occurrence of the external cause
CPT/HCPCS: 99284

== ENCOUNTER 2019-12-01 04:14 | Emergency (ER) | payer MEDICARE, BC ==
--- NOTE | 2019-12-01 04:20 | ED ---
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 She did undergo workup at that time was diagnosed with a hematoma no rib fractures. Patient reports she was given some Tylenol 3 at the time which helped transiently with her back pain. Patient reports that her orthopedic surgeon recommended epidural injections or back pain but she is not a candidate due to her thrombocytopenia which is chronic secondary to her liver failure. He also recommended knee replacement however she has to have clearance by hematology primary care and her liver transplant team, patient is scheduled to see her primary care physician later today and the chief security officer in 1-2 weeks. Patient states that she just can't deal with all of her discomfort so she came to the ER because she would like to be admitted and the see the chief security officer and her primary care and get clearance for orthopedic surgery today. - Related Data Home Medications Medication Instructions Recorded Confirmed Lactulose 20 gm PO TID 07/04/16 09/01/18 Ondansetron [Zofran] 4 mg PO Q8HR PRN 07/04/16 09/01/18 Propranolol [Inderal] 20 mg PO BID 07/04/16 09/01/18 Rifaximin [Xifaxan] 550 mg PO BID 07/04/16 09/01/18 Oxybutynin Chloride 5 mg PO DAILY 08/27/18 09/01/18 predniSONE See Taper PO 09/01/18 Previous Rx's Medication Instructions Recorded Benzonatate [Tessalon Perles] 100 mg PO TID #30 cap 08/30/18 HYDROcodone/APAP 5-325MG [[place] 1 each PO Q6HR PRN #15 tab 08/30/18 5-325] Ipratropium-Albuterol Nebulize 3 ml INHALATION Q4H PRN #60 neb 08/30/18 [Duoneb 0.5 mg-3 mg/3 ml Soln] ALPRAZolam [Xanax] 0.25 mg PO BID PRN 3 Days #6 tab 09/07/18 Furosemide [Lasix] 40 mg PO DAILY #60 tab 09/07/18 INSULIN ASPART (NovoLOG) [NovoLOG 6 unit SQ ACHS #1 vial 09/07/18 (formulary)] Insulin Detemir (Levemir) [Levemir] 20 unit SQ HS #1 syr 09/07/18 Levofloxacin [Levaquin] 750 mg PO Q24H #5 tab 09/07/18 Nystatin 100,000 Unit/ml Susp 500,000 unit PO QID #30 cup 09/07/18 [Mycostatin Oral Susp] Potassium Chloride ER [K-Dur 20] 20 meq PO DAILY #30 tab 09/07/18 Pramipexole [Mirapex] 0.25 mg PO TID PRN #30 tab 09/07/18 Spironolactone [Aldactone] 50 mg PO DAILY #30 tab 09/07/18 Allergies Allergy/AdvReac Type Severity Reaction Status Date / Time No Known Allergies Allergy Verified 11/26/19 16:35 Review of Systems ROS Statement: Those systems with pertinent positive or pertinent negative responses have been documented in the HPI. ROS Other: All systems not noted in ROS Statement are negative. Past Medical History Past Medical History: GI Bleed, Liver Disease Additional Past Medical History / Comment(s): NON ALCOHOL CIRRHOSIS OF LIVER - CURRENTLY ON LIVER TRANSPLANT LIST. 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 [facility] and she has history of portal hypertension, chronic anemia, chronic dyspea, obesity, chronic thrombocytopenia History of Any Multi-Drug Resistant Organisms: None Reported Past Surgical History: Bowel Resection, Hernia Repair, Hysterectomy, Joint Re placement, Orthopedic Surgery Additional Past Surgical History / Comment(s): x4 laproscopy's Past Anesthesia/Blood Transfusion Reactions: No Reported Reaction Past Psychological History: No Psychological Hx Reported Smoking Status: Never smoker Past Alcohol Use History: None Reported Past Drug Use History: None Reported Course Vital Signs 12/01/19 12/01/19 12/01/19 04:15 05:25 06:27 Temperature 98.3 F 97.8 F 97.7 F Pulse Rate 74 72 73 Respiratory 18 16 18 Rate Blood Pressure 128/47 139/63 132/52 O2 Sat by Pulse 96 98 99 Oximetry Medical Decision Making - Medical Decision Making Patient was seen and evaluated, history is obtained from the patient The patient with multiple medical comorbidities which prevented her from receiving definitive care for her chronic back pain. Patient presenting today with acute on chronic pain after a fall last week. Patient concerned that she worsen the injury to her back, CT imaging was obtained and resulted with no acute findings. Labs were at baseline for patient chronic anemia thrombus cytopenia, transaminitis She received by mouth morphine in the emergency department reported her pain was much improved, she still stated that she would prefer to be admitted however I discussed with her since she does not make meet admission criteria and since she arty hasn't outpatient follow-up plan with hematology and orthopedic surgery and pain management she should continue without plan. Patient has a scheduled appointment with her primary care physician doctor, Venkata Rodriguez today. - Lab Data Result diagrams: 12/01/19 05:13 12/01/19 05:13 Lab Results 12/01/19 12/01/19 Range/Units 05:13 05:13 WBC 7.5 (3.8-10.6) k/uL RBC 2.32 L (3.80-5.40) m/uL Hgb 8.2 L (11.4-16.0) gm/dL Hct 25.9 L (34.0-46.0) % MCV 111.9 H (80.0-100.0) fL MCH 35.5 H (25.0-35.0) pg MCHC 31.7 (31.0-37.0) g/dL RDW 21.2 H (11.5-15.5) % Plt Count 65 L (150-450) k/uL Neutrophils % (Manual) 39 % Band Neutrophils % 31 % Lymphocytes % (Manual) 12 % Monocytes % (Manual) 12 % Eosinophils % (Manual) 6 % Neutrophils # (Manual) 5.20 (1.3-7.7) k/uL Lymphocytes # (Manual) 0.90 L (1.0-4.8) k/uL Monocytes # (Manual) 0.90 (0-1.0) k/uL Eosinophils # (Manual) 0.45 (0-0.7) k/uL Nucleated RBCs 0 (0-0) /100 WBC Manual Slide Review Performed Hypochromasia Moderate Poikilocytosis Slight Poikilocytosis (manual Present Anisocytosis Moderate Anisocytosis (manual) Present Macrocytosis Marked A Ovalocytes Present Sodium 132 L (137-145) mmol/L Potassium 5.1 (3.5-5.1) mmol/L Chloride 107 (98-107) mmol/L Carbon Dioxide 23 (22-30) mmol/L Anion Gap 2 mmol/L BUN 18 H (7-17) mg/dL Creatinine 0.85 (0.52-1.04) mg/dL Est GFR (CKD-EPI)AfAm 82 (>60 ml/min/1.73 sqM) Est GFR (CKD-EPI)NonAf 71 (>60 ml/min/1.73 sqM) Glucose 125 H (74-99) mg/dL Calcium 7.6 L (8.4-10.2) mg/dL Total Bilirubin 3.9 H (0.2-1.3) mg/dL AST 65 H (14-36) U/L ALT 26 (4-34) U/L Alkaline Phosphatase 201 H (38-126) U/L Total Protein 5.8 L (6.3-8.2) g/dL Albumin 2.7 L (3.5-5.0) g/dL Disposition Clinical Impression: Chronic pain Disposition: HOME SELF-CARE Condition: Stable Additional Instructions: Follow-up with Dr. Rodriguez today as planned, discussed with him new medications for pain management. Follow up with chief security officer as planned and discuss possibility of platelet transfusion to allow for surgery. Return to the ER her pain becomes intolerable or he have any new or concerning symptoms Is patient prescribed a controlled substance at d/c from ED?: No Referrals: Stan Rodriguez MD [Primary Care Provider] - 1-2 days
[2019-12-01] MEDS ORDERED: MORPHINE SULFATE ER 15 MG TABLET PO ONE (05:00)
[2019-12-01 05:27] LABS: Anisocytosis Moderate; HCT 25.9 % (34.0-46.0); HGB 8.2 gm/dL (11.4-16.0); Hypochromasia Moderate; MCH 35.5 pg (25.0-35.0); MCHC 31.7 g/dL (31.0-37.0); MCV 111.9 fL (80.0-100.0); Macrocytosis Marked; Mean Platelet Volume 11.9; Poikilocytosis Slight; RBC 2.32 m/uL (3.80-5.40); RDW 21.2 % (11.5-15.5); WBC 7.5 k/uL (3.8-10.6)
--- NOTE | 2019-12-01 05:56 | CT ---
EXAMINATION TYPE: CT lumbar spine wo con DATE OF EXAM: 12/01/2019 COMPARISON: None HISTORY: fall CT DLP: 1447.6 mGycm Automated exposure control for dose reduction was used. Images were obtained from the level of T11-S3 vertebra with no contrast. Lumbar vertebra have normal alignment. There is no compression fracture. There is hypertrophic spurri ng of the endplates throughout the lumbar spine. There is mild vacuum disc at multiple levels. The po sterior elements are intact. There is hypertrophic multilevel lumbar facet arthropathy. There is no l umbar paraspinal mass. The sacroiliac joints appear intact. I see no bony destructive process. There is some mild atelectasis and scarring at the posterior lung bases. There is a possible mild free flui d in the pelvis. IMPRESSION: Multilevel spondylotic changes in the lumbar spine. No fracture seen. There is probably some mild free fluid in the pelvis. Mild atelectasis at the lung bases.
[2019-12-01 05:57] LABS: Calcium 7.6 mg/dL (8.4-10.2); Total Bilirubin 3.9 mg/dL (0.2-1.3)
[2019-12-01 05:59] LABS: Band Neutrophils % 31 %; Eosinophils # (M) 0.45 k/uL (0-0.7); Neutrophils % (M) 39 %; Nucleated Red Blood Cells 0 /100 WBC (0-0); Total Cells Counted 200
[2019-12-01 06:00] LABS: Anisocytosis (M) Present; Platelet Count 65 k/uL (150-450)
[2019-12-01 06:01] LABS: Ovalocytes Present; Poikilocytosis (M) Present
[2019-12-01 06:07] LABS: Albumin 2.7 g/dL (3.5-5.0); Potassium 5.1 mmol/L (3.5-5.1); Total Protein 5.8 g/dL (6.3-8.2)
[2019-12-01 06:28] VITALS: RESP 18; TEMP 97.7
[2019-12-01] MEDS ORDERED: MORPHINE SULFATE IR 15 MG TABLET PO STA (07:05)
[2019-12-01 07:44] VITALS: BP 143/74; PULSE 71
--- NOTE | 2019-12-11 12:44 | CDI ---
Dear Chela Mendez DO Please do addendum to ED report for missing Physical examination Documents , Thank you, Naveed Gupta Cops If you have any questions, please contact Lead Mechanical Engineer at [phone] [facility]ALSher
== END 2019-12-01 07:49 | disposition home or self-care (01) ==
LOC: EC 04:14
DX: G89.29 Other chronic pain (principal); M54.9 Dorsalgia, unspecified; M17.11 Unilateral primary osteoarthritis, right knee; K72.90 Hepatic failure, unspecified without coma; W01.0XXA Fall on same level from slipping, tripping and stumbling without subsequent striking against object, initial encounter
CPT/HCPCS: 36415; 72131; 80053; 85025; 99284